=== PATIENT | male | born 1945 | race Caucasian/White ===

== ENCOUNTER → 2016-03-26 | Outpatient (CLI) | payer OTHER, BC ==
[~2016-03-26] MED LIST: ALFU10TA30 PO; ALL300 PO; ASPCH81X PO; ATOR10TA88 PO; BIOFTAB30 PO; CLB/200 PO; CLR10 PO; COEN1CAP46 PO; CZR50 PO; DICL1GEL28 TD; DILT300C PO; DILT360C24 PO; DOCU250C11 PO; DUTA0.5C PO; FRS/40 PO; MULTCHW PO; OLOP0.1S2 OPB; POTA20TA16 PO
[2016-03-26 10:28] LABS: ALT/SGPT 45 U/L (12-78); AST/SGOT 29 U/L (15-37); BLOOD UREA NITROGEN 16 mg/dl (7-18); BUN/CREATININE RATIO 20.6 (10-20); CALCIUM 8.7 mg/dl (8.5-10.1); CARBON DIOXIDE 27 mmol/L (21-32); CHLORIDE 103 mmol/L (98-107); CREATININE 0.76 mg/dl (0.60-1.40); GLUCOSE 99 mg/dl (70-99); POTASSIUM 3.7 mmol/L (3.5-5.1); SODIUM 139 mmol/L (136-145)
[2016-03-26 10:29] LABS: ALKALINE PHOSPHATASE 78 U/L (45-117)
== END | disposition home or self-care (01) ==
LOC: C.LAB1850 08:56
PROVIDERS: ATTEND Family Medicine
DX: I10 Essential (primary) hypertension (principal); Z11.59 Encounter for screening for other viral diseases

== ENCOUNTER → 2016-04-15 | Outpatient (CLI) | payer OTHER, BC ==
--- NOTE | 2016-04-15 11:25 | DIAGNOSTIC IMAGING REPORT ---
RIGHT KNEE 4 VIEWS; LEFT KNEE 4 VIEWS CLINICAL HISTORY: Chronic bilateral knee pain. FINDINGS: An AP standing view of both knees, a tunnel view of both knees, a sunrise view of both knees, as well as crosstable lateral views of the right and left knee are compared to study dated 10/16/2012. The skeletal structures are osteopenic. No fracture is seen. Right knee: There is moderate to advanced tricompartmental degenerative joint space narrowing, greatest in the medial and patellofemoral compartments. There is mild bony sclerosis present in the medial compartment. There are marginal osteophytes and large patellar enthesophytes. There is no evidence of osteochondral defect on the tunnel view. No large joint effusion is identified. Prepatellar soft tissue edema is noted. Left knee: There is moderate to advanced tricompartmental degenerative joint space narrowing, greatest in the medial and patellofemoral compartments. Bony sclerosis is present in the medial compartment. Chondrocalcinosis is noted in the lateral compartment. No osteochondral defect is suggested on the tunnel image. There are large lateral marginal osteophytes, large patellar enthesophytes, as well as mild degenerative beaking of the tibial spine. There is no large joint effusion. Prepatellar soft tissue edema is noted. IMPRESSION: 1. Prepatellar soft tissue swelling is present bilaterally. No acute bony abnormality is seen in either knee. 2. Osteopenia with moderate to advanced arthritic change in both knees as detailed above. This has modestly progressed from the 2013 examination. Electronically signed by: Pravin Shepherd M.D. 04/15/2016 11:24 AM Dictated Date/Time: 04/15/2016 11:20 AM
--- NOTE | 2016-04-15 12:57 | DIAGNOSTIC IMAGING REPORT ---
LEFT LEG LENGTH STUDY (WHOLE LEG) CLINICAL HISTORY: Left knee pain. COMPARISON STUDY: Knee radiographs October 16, 2012 FINDINGS: Evaluation of left femur length is difficult given suboptimal penetration of the left femoral head due to body habitus. The left femur measures approximately 53.5 cm. The left tibia measures approximately 42.9 cm. Moderate medial compartment joint space narrowing within the left knee is noted with mild lateral compartment joint space narrowing. There is chondrocalcinosis with osteophytosis. IMPRESSION: Left femur length difficult to evaluate due to suboptimal penetration. Left femur measures approximately 53.5 cm and left tibia measures approximately 42.9 cm for a left leg length of 96.4 cm. Electronically signed by: Wily Garduno M.D. 04/15/2016 12:56 PM Dictated Date/Time: 04/15/2016 12:51 PM
== END | disposition home or self-care (01) ==
LOC: C.RDSM 15:10
PROVIDERS: ATTEND Physical Medicine & Rehabilitation Sports Medicine
DX: M17.0 Bilateral primary osteoarthritis of knee (principal)

== ENCOUNTER → 2016-05-31 | Outpatient (CLI) | payer OTHER, BC ==
[~2016-05-31] MED LIST changes: +ALFU10TA2 PO; -ALFU10TA30 PO; +ATOR10TA82 PO; -ATOR10TA88 PO; -OLOP0.1S2 OPB; +OLOP0.1S3 OPB
== END | disposition home or self-care (01) ==
LOC: C.RDSM 11:45
PROVIDERS: ATTEND Physical Medicine & Rehabilitation Sports Medicine
DX: M25.512 Pain in left shoulder (principal)

== ENCOUNTER → 2016-06-02 | Outpatient (CLI) | payer OTHER, BC ==
[2016-06-02 12:45] LABS: BLOOD UREA NITROGEN 13 mg/dl (7-18); CREATININE 0.77 mg/dl (0.60-1.40)
== END | disposition home or self-care (01) ==
LOC: C.LAB1850 10:00
PROVIDERS: ATTEND Physician Assistant
DX: R22.32 Localized swelling, mass and lump, left upper limb (principal)

== ENCOUNTER → 2016-06-04 | Outpatient (CLI) | payer OTHER, BC ==
[~2016-06-04] MED LIST changes: +GADAVIST IV PRN
--- NOTE | 2016-06-04 11:28 | DIAGNOSTIC IMAGING REPORT ---
MRI OF THE LEFT SHOULDER WITH AND WITHOUT CONTRAST CLINICAL HISTORY: Left shoulder pain and lump status post fall 4 weeks ago. COMPARISON STUDY: Left shoulder radiographs May 31, 2016. TECHNIQUE: Utilizing a 1.5 Laura magnet and dedicated coil, multiplanar, multi echo imaging of the left shoulder was performed pre and postcontrast ministration. Injection of 13 cc of Gadavist IV was uneventful. FINDINGS: Alignment of the left shoulder is anatomic. There is no evidence for fracture. There is elevation of the left humeral head due to extensive full-thickness rotator cuff tear. There are full-thickness tears with tendon retraction and muscular atrophy of supraspinatus, infraspinatus and subscapularis. Teres minor is intact. There is moderate glenohumeral joint arthrosis and severe arthrosis of the acromioclavicular joint. There is fluid within the acromioclavicular joint with subchondral cystic change/geodes within the distal left clavicle. Note is made of a 3.2 x 2.3 cm T2 hyperintense abnormality along the superior aspect of the acromioclavicular joint within the subcutaneous tissues which represents the palpable abnormality. This demonstrates thin peripheral enhancement with minimal internal complexity. This suggests a ganglion cyst. No additional mass or fluid collection is identified. There is a complex tear of the glenoid labrum which is likely chronic. There is a suspected tear of the proximal long head of the biceps tendon. IMPRESSION: 1. 3.2 x 2.3 cm subcutaneous fluid collection of the left shoulder adjacent to the acromioclavicular joint which accounts for the palpable abnormality. The findings favor a ganglion cyst. 2. 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 3. Extensive rotator cuff tear with full-thickness tears with tendon retraction and muscular atrophy of supraspinatus, infraspinatus and subscapularis. 4. Complex labral tear. 5. Tear of the proximal long head of biceps tendon. Electronically signed by: Wily Garduno M.D. 06/04/2016 11:26 AM Dictated Date/Time: 06/04/2016 10:52 AM
== END | disposition home or self-care (01) ==
LOC: C.MRIBC 09:21
PROVIDERS: ATTEND Physical Medicine & Rehabilitation Sports Medicine
DX: R22.32 Localized swelling, mass and lump, left upper limb (principal); M19.012 Primary osteoarthritis, left shoulder; M75.102 Unspecified rotator cuff tear or rupture of left shoulder, not specified as traumatic; S49.82XA Other specified injuries of left shoulder and upper arm, initial encounter; X58.XXXA Exposure to other specified factors, initial encounter

== ENCOUNTER 2016-08-03 18:21 | Emergency (ER) | payer OTHER, BC ==
[~2016-08-03] VITALS: Ht 193 cm; Wt 137.7 kg
[~2016-08-03 18:21] MED LIST changes: -ATOR10TA82 PO; -DILT360C24 PO; -DUTA0.5C PO; -GADAVIST IV PRN; -OLOP0.1S3 OPB
[2016-08-03 18:29] VITALS: TEMP 36.6; Ht 193 cm; Wt 137.7 kg
--- NOTE | 2016-08-03 19:05 | EMERGENCY ROOM VISIT NOTE ---
History Report prepared by Allison: Gatito Petit Under the Supervision of: Eva RoweO. First contact with patient: 18:41 Chief Complaint: KIDNEY STONE Stated Complaint: KIDNEY STONES History of Present Illness The patient is a 70 year old male who presents to the Emergency Room with complaints of persistent urinary retention starting about 4 hours ago. He last urinated about 3 and a half hours ago which came out in dribbles. He denies any pain or burning with urination. He reports fullness in the lower abdomen. He denies any history of similar symptoms. He has prostate issues. The patient has a history of kidney stones and denies any similar symptoms. Pt denies headache, change in vision, fevers, chest pain, shortness of breath, nausea, vomiting, abdominal pain, back pain, diarrhea, melena, and testicular pain. Source of History: patient Onset: about 4 hours ago Position: other (global) Quality: other (urinary retention) Timing: other (persistent) Associated Symptoms: No fevers, No headache, No chest pain, No SOB, No nausea, No vomiting, No abdominal pain, No back pain, No diarrhea Review of Systems See HPI for pertinent positives & negatives. A total of 10 systems reviewed and were otherwise negative. Past Medical & Surgical Medical Problems: (1) Hypertension (2) Prostate troubles (3) Prostate troubles Family History FH: colon polyps Social History Smoking Status: Former Smoker Marital Status: Occupation Status: retired Current/Historical Medications Scheduled Alfuzosin Hcl (Uroxatral), 10 MG PO QPM Allopurinol (Zyloprim *), 300 MG PO QAM Aspirin (Aspirin Chewable), 81 MG PO QPM Bioflavonoid Products (Bioflex), 1 TAB PO BID Coenzyme Q10 (Ubidecarenone) (Coq-10 100 mg), 1 CAP PO QAM Diltiazem Hcl Coated Beads (Diltiazem Hcl Er), 1 TAB PO QAM Docusate Sodium (Docusate Sodium), 1 CAP PO QAM Furosemide (Lasix), 40 MG PO BID Loratadine (Claritin), 10 MG PO QAM Losartan Potassium (Cozaar *), 100 MG PO QAM Multiple Vitamins W/ Minerals (Centrum Silver), 1 TAB PO QAM Potassium Ext Rel (Klor-Con), 20 MEQ PO QAM Scheduled PRN Diclofenac Sod (Voltaren 1% Top Gel), 1 APPLN TD QID PRN for prn Allergies Coded Allergies: Ibuprofen (Verified Allergy, Severe, THROAT SWELLING, 08/03/16) Physical Exam Vital Signs Date Time Temp Pulse Resp B/P (MAP) Pulse Ox O2 Delivery O2 Flow Rate FiO2 08/03/16 20:30 75 20 132/78 92 08/03/16 18:29 36.6 105 18 153/92 92 Room Air Physical Exam GENERAL: Sitting up in bed, uncomfortable, holding lower groin. EYE EXAM: normal conjunctiva OROPHARYNX: no exudate, no erythema, lips, buccal mucosa, and tongue normal and mucous membranes are moist NECK: supple, no nuchal rigidity, no adenopathy, non-tender LUNGS: Clear to auscultation. Normal chest wall mechanics HEART: no murmurs, S1 normal and S2 normal ABDOMEN: abdomen soft, mild tenderness to the suprapubic region, normo-active bowel sounds, no masses, no rebound or guarding. BEDSIDE ultrasound: Shows a large distended bladder. : Normal external genitalia, testicles are nontender, no penile discharge. BACK: Back is symmetrical on inspection and there is no deformity, no midline tenderness, no CVA tenderness. SKIN: no rashes and no bruising UPPER EXTREMITIES: upper extremities are grossly normal. LOWER EXTREMITIES: No pitting edema. NEURO EXAM: Normal sensorium, cranial nerves II-XII grossly intact, normal speech, no gross weakness of arms, no gross weakness of legs. Medical Decision & Procedures Laboratory Results Test 08/03/16 19:02 Urine Color YELLOW Urine Appearance CLEAR (CLEAR) Urine pH 6.5 (4.5-7.5) Urine Specific [place] 1.010 (1.000-1.030) Urine Protein NEG (NEG) Urine Glucose (UA) NEG (NEG) Urine Ketones NEG (NEG) Urine Occult Blood 2+ (NEG) Urine Nitrite NEG (NEG) Urine Bilirubin NEG (NEG) Urine Urobilinogen NEG (NEG) Urine Leukocyte Esterase NEG (NEG) Urine RBC >30 /hpf (0-4) Urine WBC 0 /hpf (0-5) Urine Epithelial Cells 0-5 /lpf (0-5) Urine Bacteria NEG (NEG) Laboratory results per my review. ED Course ED COURSE: Vital signs were reviewed and showed tachycardic and hypertensive. The patients medical record was reviewed The above diagnostic studies were performed and reviewed. ED treatments and interventions as stated above. 1841: The patient was evaluated in room B04B. A complete history and physical examination was performed. Medication Reconciliation: I attest that I have personally reviewed the patient' s current medication list. Blood pressure screening: Patient was found to have an elevated blood pressure and was referred to their primary doctor for recheck and further treatment. 190: 1200 mls of urine were removed through the catheter. 1921: I discussed the patient's case with Dr. Walters, urologist with [facility]. He recommended having the patient follow up as an outpatient. 2009: Upon reevaluation, the patient is resting comfortably.I discussed my findings with the patient and he understands and agrees with the treatment plan. Based on the patients age, coexisting illnesses, exam and lab findings the decision to treat as an outpatient was made. The patient remained stable while under my care. The patient appeared well at the time of discharge. Medical Decision Differential diagnoses includes but is not limited to gastritis, peptic ulcer disease, GERD, gallbladder disease, pancreatitis, small bowel obstruction, acute coronary syndrome, pericarditis, ischemic bowel, irritable bowel disease, irritable bowel syndrome, appendicitis, diverticulitis, malignancy, hernia, urinary tract infection, torsion, perforation, trauma, infectious. Patient is a 70-year-old male that complains of bilateral lower/groin pain. Pt notes that he has been having difficulty urinating since 2 PM. Bedside ultrasound shows a large distended bladder. Cueva was placed and symptoms completely resolved. 1300 MLS was removed from his bladder. UA was negative. Patient is currently taking medication for his BPH. Discussed with Dr. Walters in order to have follow-up. Patient will call the office tomorrow morning to set up an appointment. He was discharged with Cueva in place. He was given strict instructions to return with any fevers greater than 100.4 or any other complications. Discussed with Pt concerning signs and symptoms to watch out for. Pt was instructed to follow up with their PCP and discussed with the patient their option to return to the ED at anytime for persistent or worsening symptoms. The appropriate anticipatory guidance and out-patient management, including indications for return to the emergency department, were explained at length to the patient and understood. Consults Time Called: 1909 Consulting Physician: Dr. Walters, urologist with [facility] Returned Call: 1921 I discussed the patient's case with Dr. Walters, urologist with [facility]. He recommended having the patient follow up as an outpatient. Impression Primary Impression: Urinary retention Scribe Attestation The scribe's documentation has been prepared under my direction and personally reviewed by me in its entirety. I confirm that the note above accurately reflects all work, treatment, procedures, and medical decision making performed by me. Departure Information Dispostion Home / Self-Care Referrals Bienvenido Mcclain D.O.Int.Med. (PCP) Davian Walters M.D. Forms HOME CARE DOCUMENTATION FORM, IMPORTANT VISIT INFORMATION Patient Instructions ED Catheter Care Cueva, ED Retention Urinary Male, Leg Bag Care Dc, My [facility] Additional Instructions Please follow up with your primary care doctor or urologist with in the next 3 days. Any worsening of your symptoms, please return to the ED immediately. This includes no urine within the Cueva bag, recurrence of pain, fevers grade and 100.4, or any other concerning signs or symptoms from your standpoint. Please call urology first thing tomorrow morning.
[2016-08-03 19:46] LABS: MANUAL MICROSCOPIC REQUIRED? YES; URINE APPEARANCE CLEAR (CLEAR); URINE BILIRUBIN NEG (NEG); URINE COLOR YELLOW; URINE NITRITE NEG (NEG); URINE PH 6.5 (4.5-7.5); UROBILINOGEN NEG (NEG)
[2016-08-03 19:47] LABS: REVIEW REQ? NO
[2016-08-03 20:00] LABS: URINE BACTERIA NEG (NEG); URINE RBC >30 /hpf (0-4); URINE WBC 0 /hpf (0-5)
[2016-08-03 20:01] LABS: ZZURINE CULT IF INDIC CATH NO
[2016-08-03 20:30] VITALS: BP 132/78; PULSE 75; O2SAT 92
[2016-09-23] MEDS ORDERED: OLOP0.1S3 OPB (09:01)
[2016-09-23] MEDS ORDERED: DILT360C24 PO (09:01)
[2016-09-23] MEDS ORDERED: DUTA0.5C PO (09:01)
[2016-09-23] MEDS ORDERED: ATOR10TA82 PO (09:02)
== END 2016-08-03 20:35 | disposition home or self-care (01) ==
LOC: C.EDB 18:22
DX: R33.9 Retention of urine, unspecified (principal); I10 Essential (primary) hypertension; Z87.891 Personal history of nicotine dependence; Z79.82 Long term (current) use of aspirin; Z79.899 Other long term (current) drug therapy; Z88.6 Allergy status to analgesic agent; Z83.71 Family history of colonic polyps

== ENCOUNTER → 2016-08-16 | Outpatient (CLI) | payer OTHER, BC ==
[~2016-08-16] MED LIST changes: +ATOR10TA82 PO; -CLB/200 PO; +DILT360C24 PO; +DUTA0.5C PO; +OLOP0.1S3 OPB
[2016-08-16 18:08] LABS: % FREE PSA 17.2 %; FREE PSA 1.86 ng/ml; PROSTATE SPECIFIC ANTIGEN 10.8 ng/ml (0.000-4.000)
== END | disposition home or self-care (01) ==
LOC: C.LAB1850 16:20
PROVIDERS: ATTEND Nurse Practitioner Adult Health
DX: N40.1 Benign prostatic hyperplasia with lower urinary tract symptoms (principal); R97.20 Elevated prostate specific antigen [PSA]

== ENCOUNTER → 2016-09-01 | Outpatient (CLI) | payer OTHER, BC ==
[~2016-09-01] MED LIST changes: -ALFU10TA2 PO; +ALFU10TA30 PO; -ATOR10TA82 PO; +ATOR10TA88 PO; +OLOP0.1S2 OPB; -OLOP0.1S3 OPB
== END | disposition home or self-care (01) ==
LOC: C.LAB1850 12:09
PROVIDERS: ATTEND Urology
DX: R97.20 Elevated prostate specific antigen [PSA] (principal)

== ENCOUNTER → 2016-10-06 | Day surgery (SDC) | payer OTHER, BC ==
[2016-09-23 09:02] VITALS: Ht 185.4 cm; Wt 134.1 kg
[~2016-10-06] VITALS: Ht 185.4 cm; Wt 134.1 kg
[~2016-10-06] MED LIST changes: -DILT300C PO; -DOCU250C11 PO; +LIDOCAINE HCL 2% 2 ML VIAL (20MG/ML) ONE; +PROPOFOL IV EMULSION 10 MG/ML 20 ML VIAL IV ONE; +SODIUM CHLORIDE 0.9% 500ML 500 ML IV ONE
[2016-10-06 13:00] VITALS: TEMP 37
--- NOTE | 2016-10-06 13:43 | Endo History and Physical ---
History & Physical Date of Service: Oct 06, 2016. Chief Complaint: screening Referring Physician: Clarisse Eubanks History of Present Illness 70 yo CM who presents for screening colonoscopy. Past Medical History Reflux, Sleep Apnea, Hypertension, Other Past Surgical History Hx Cardiac Surgery: No Hx Internal Defibrillator: No Hx Pacemaker: No Hx Abdominal Surgery: No Hx Post-Op Nausea and Vomiting: No Hx Cancer Surgery: No Hx Thoracic Surgery: No Hx Orthopedic: Yes (R ELBOW RELOCATION OF NERVE, L FOOT HAMMER TOE REPAIR/ BUNIONECTOMY) Hx Urinary Tract Surgery: No Family History Polyp Social History Smoking Status: Former Smoker Hx Substance Use: No Hx Alcohol Use: No Allergies Coded Allergies: Ibuprofen (Verified Allergy, Severe, THROAT SWELLING, 09/23/16) Current Medications Reported Home Medications Medications Dose Route/Sig Max Daily Dose Days Date Category Lipitor (Atorvastatin Calcium) 10 Mg Tab 10 Mg PO QAM 09/23/16 Reported Patanol 0.1% Oph (Olopatadine Hcl) 0.1 % Linda 1 Drop OPB BID 09/23/16 Reported Diltiazem Hcl (Diltiazem Hcl Extended Release) 360 Mg Cap 1 Cap PO QAM 09/23/16 Reported Avodart (Dutasteride) 0.5 Mg Cap 0.5 Mg PO QPM 09/23/16 Reported Centrum Silver (Multiple Vitamins W/ Minerals) 1 Chw Chw 1 Tab PO QAM 03/27/15 Reported Bioflex (Bioflavonoid Products) 1 Tab Tab 1 Tab PO BID 03/27/15 Reported Coq-10 100 mg (Coenzyme Q10 (Ubidecarenone)) 1 Cap Cap 1 Cap PO QAM 03/27/15 Reported Voltaren 1% Top Gel (Diclofenac Sodium) Gel 1 Appln TD QID PRN 10/11/14 Reported Klor-Con (Potassium Chloride) 20 Meq Tabcr 20 Meq PO QAM 10/11/14 Reported Claritin (Loratadine) 10 Mg Tab 10 Mg PO QAM 07/09/14 Reported Aspirin Chewable (Aspirin) 81 Mg Chew 81 Mg PO QPM 07/09/14 Reported Lasix (Furosemide) 40 Mg Tab 40 Mg PO BID 01/20/07 Reported Uroxatral (Alfuzosin HCl) 10 Mg Tab 10 Mg PO QPM 01/20/07 Reported Zyloprim * (Allopurinol) 300 Mg Tab 300 Mg PO QAM 01/20/07 Reported Cozaar * (Losartan Potassium) 100 Mg Tab 100 Mg PO QAM 01/20/07 Reported Vital Signs Weight (Kilograms): 134.09 Height (Feet): 6 Height (Inches): 1 Date Time Temp Pulse Resp B/P (MAP) Pulse Ox O2 Delivery O2 Flow Rate FiO2 10/06/16 13:00 37 64 20 151/84 (106) 95 Room Air Physical Exam General Appearance: WD/WN, no apparent distress Respiratory/Chest: Auscultation: breath sounds normal Cardiovascular: Heart Auscultation: RRR Abdomen: Bowel Sounds: normal Inspection & Palpation: soft, non-distended, no tenderness, guarding & rebound Assessment and Plan Assessment: 70 yo CM who presents for screening colonoscopy. Plan: Proceed with colonoscopy.
--- NOTE | 2016-10-06 14:20 | Discharge Instructions ---
Endoscopy Patient Instructions Date / Procedure(s) Performed Oct 06, 2016. Colonoscopy Allergy Information Coded Allergies: Ibuprofen (Verified Allergy, Severe, THROAT SWELLING, 09/23/16) Discharge Date / Findings Oct 06, 2016. Colon polyps Rectal polyp Internal hemorrhoids Medication Instructions Stopped Medication(s): last dose ASA 10/05 2300 OK to resume all medications today as prescribed Reported Home Medications Medications Dose Route/Sig Max Daily Dose Days Date Category Lipitor (Atorvastatin Calcium) 10 Mg Tab 10 Mg PO QAM 09/23/16 Reported Patanol 0.1% Oph (Olopatadine Hcl) 0.1 % Linda 1 Drop OPB BID 09/23/16 Reported Diltiazem Hcl (Diltiazem Hcl Extended Release) 360 Mg Cap 1 Cap PO QAM 09/23/16 Reported Avodart (Dutasteride) 0.5 Mg Cap 0.5 Mg PO QPM 09/23/16 Reported Centrum Silver (Multiple Vitamins W/ Minerals) 1 Chw Chw 1 Tab PO QAM 03/27/15 Reported Bioflex (Bioflavonoid Products) 1 Tab Tab 1 Tab PO BID 03/27/15 Reported Coq-10 100 mg (Coenzyme Q10 (Ubidecarenone)) 1 Cap Cap 1 Cap PO QAM 03/27/15 Reported Voltaren 1% Top Gel (Diclofenac Sodium) Gel 1 Appln TD QID PRN 10/11/14 Reported Klor-Con (Potassium Chloride) 20 Meq Tabcr 20 Meq PO QAM 10/11/14 Reported Claritin (Loratadine) 10 Mg Tab 10 Mg PO QAM 07/09/14 Reported Aspirin Chewable (Aspirin) 81 Mg Chew 81 Mg PO QPM 07/09/14 Reported Lasix (Furosemide) 40 Mg Tab 40 Mg PO BID 01/20/07 Reported Uroxatral (Alfuzosin HCl) 10 Mg Tab 10 Mg PO QPM 01/20/07 Reported Zyloprim * (Allopurinol) 300 Mg Tab 300 Mg PO QAM 01/20/07 Reported Cozaar * (Losartan Potassium) 100 Mg Tab 100 Mg PO QAM 01/20/07 Reported Provider Instructions Activity Restrictions - No exercising or heavy lifting for 24 hours. - Do not drink alcohol the day of the procedure. - Do not drive a car or operate machinery until the day after the procedure. - Do not make any important decisions or sign important papers in 24 hours after the procedure. Following Day: - Return to full activity which may include returning to work/school. Diet Start your diet with liquids and light foods (jello, soup, juice, toast). Then eat your usual diet if not nauseated. Treatment For Common After Affects For mild abdominal pain, bloating, or excessive gas: - Rest - Eat lightly - Lie on right side Follow-Up Information Follow-up with Clarisse Eubanks as scheduled Anesthesia Information What You Should Know You have had a procedure that required some medicine to reduce anxiety and discomfort. This treatment is called moderate sedation. After receiving the treatment, you may be sleepy, but you will be able to breathe on your own. The effects of the treatment may last for several hours. Follow these instructions along with Activity/Diet recommendations noted above: * Do NOT do anything where dizziness or clumsiness would be dangerous. * Rest quietly at home today, then you can be up and about tomorrow. * Have a responsible person stay with you the rest of today. * You may have had an I.V. today. If so, you may take the dressing off later today. Recommendations Call your doctor if: * Trouble breathing * Continuous vomiting for more than 24 hours * Temperature above 101 degrees * Severe abdominal pain or bloating * Pain not relieved by pain medicine ordered * There is increased drainage or redness from any incision * A large amount of rectal bleeding greater than 2-3 tablespoons. (If you had a polyp/s removed or have hemorrhoids, a small amount of blood - from the rectum is to be expected.) * You have any unanswered questions or concerns. IN THE EVENT OF A SERIOUS EMERGENCY, GO TO THE NEAREST EMERGENCY ROOM Your discharge instructions were prepared by provider Zelalem Putnam. Patient Instructions Signature Page Aiden Sawyer Patient (or Guardian) Signature/Date: I have read and understand the instructions given to me by my caregivers. Caregiver/RN/Doctor Signature/Date: The above-named patient and/or guardian has received patient instructions on this date. + Original Patient Signature Page (only) stays with chart. Please make copy for patient.
--- NOTE | 2016-10-06 14:24 | GI REPORT ---
Procedure Date: 10/06/2016 1:19 PM Procedure: Colonoscopy Indications: Screening for colorectal malignant neoplasm Medicines: Monitored Anesthesia Care Complications: No immediate complications. Estimated Blood Loss: Estimated blood loss: none. Procedure: Pre-Anesthesia Assessment: - Prior to the procedure, a History and Physical was performed, and patient medications and allergies were reviewed. The patient's tolerance of previous anesthesia was also reviewed. The risks and benefits of the procedure and the sedation options and risks were discussed with the patient. All questions were answered, and informed consent was obtained. Prior Anticoagulants: The patient has taken aspirin, last dose was 2 days prior to procedure. ASA Grade Assessment: II - A patient with mild systemic disease. After reviewing the risks and benefits, the patient was deemed in satisfactory condition to undergo the procedure. After I obtained informed consent, the scope was passed under direct vision. Throughout the procedure, the patient's blood pressure, pulse, and oxygen saturations were monitored continuously. The Scope was introduced through the anus with the intention of advancing to the ileum. The scope was advanced to the ascending colon before the procedure was aborted. Medications were given. The colonoscopy was performed with difficulty due to a tortuous colon and the patient's body habitus. Successful completion of the procedure was aided by changing the patient to a supine position and applying abdominal pressure. The patient tolerated the procedure fairly well. The quality of the bowel preparation was good. The ileocecal valve and the rectum were photographed. Findings: Three sessile polyps were found in the rectum and in the ascending colon. The polyps were 4 to 6 mm in size. These polyps were removed with a hot snare. Resection and retrieval were complete. Non-bleeding internal hemorrhoids were found during retroflexion. The hemorrhoids were small. Impression: - Three 4 to 6 mm polyps in the rectum and in the ascending colon, removed with a hot snare. Resected and retrieved. - Non-bleeding internal hemorrhoids. Recommendation: - Resume previous diet. - Continue present medications. - Repeat colonoscopy for surveillance based on pathology results. - Return to primary care physician as previously scheduled. Zelalem Putnam DO 10/06/2016 2:24:10 PM This report has been signed electronically. Note Initiated On: 10/06/2016 1:19 PM I attest to the content of the Intraoperative Record and orders documented therein, exceptions below
--- NOTE | 2016-10-06 14:37 | Anesthesiology Progress Note ---
Anesthesia Post Op Note Date & Time Oct 06, 2016 at 14:37 Vital Signs Pain Intensity: 0 Vital Signs Past 12 Hours Date Time Temp Pulse Resp B/P (MAP) Pulse Ox O2 Delivery O2 Flow Rate FiO2 10/06/16 13:00 37 64 20 151/84 (106) 95 Room Air Notes Mental Status: alert / awake / arousable, participated in evaluation Pt Amnestic to Procedure: Yes Nausea / Vomiting: adequately controlled Pain: adequately controlled Airway Patency, RR, SpO2: stable & adequate BP & HR: stable & adequate Hydration State: stable & adequate Anesthetic Complications: no major complications apparent
[2016-10-06 14:51] VITALS: BP 148/84; PULSE 64; O2SAT 93
== END | disposition home or self-care (01) ==
LOC: C.GI 12:18
PROVIDERS: ATTEND Internal Medicine
DX: Z12.11 Encounter for screening for malignant neoplasm of colon (principal); K62.1 Rectal polyp; D12.2 Benign neoplasm of ascending colon; K64.8 Other hemorrhoids; I10 Essential (primary) hypertension; G47.30 Sleep apnea, unspecified; K21.9 Gastro-esophageal reflux disease without esophagitis; Z83.71 Family history of colonic polyps; Z87.891 Personal history of nicotine dependence; Z79.82 Long term (current) use of aspirin; Z79.899 Other long term (current) drug therapy

== ENCOUNTER → 2016-12-01 | Outpatient (CLI) | payer OTHER, BC ==
[~2016-12-01] MED LIST changes: -LIDOCAINE HCL 2% 2 ML VIAL (20MG/ML) ONE; -PROPOFOL IV EMULSION 10 MG/ML 20 ML VIAL IV ONE; -SODIUM CHLORIDE 0.9% 500ML 500 ML IV ONE
[2016-12-01 13:15] LABS: FREE PSA 0.68 ng/ml; PROSTATE SPECIFIC ANTIGEN 3.45 ng/ml (0.000-4.000)
== END | disposition home or self-care (01) ==
LOC: C.LAB1850 11:03
PROVIDERS: ATTEND Urology
DX: R97.20 Elevated prostate specific antigen [PSA] (principal)

== ENCOUNTER → 2017-01-28 | Outpatient (CLI) | payer OTHER, BC ==
[~2017-01-28] MED LIST changes: +ALFU10TA2 PO; -ALFU10TA30 PO; +ATOR10TA82 PO; -ATOR10TA88 PO; -OLOP0.1S2 OPB; +OLOP0.1S3 OPB
[2017-01-28 12:43] LABS: BASO % 0.6 %; BASO ABS # 0.05 K/uL (0-0.2); COMPLETE YES; EOS % 2.2 %; HEMATOCRIT 43.6 % (42-52); IG% 0.4 %; LYMPH % 14.4 %; LYMPH ABS # 1.18 K/uL (1.2-3.4); MEAN CELL VOLUME 88.1 fL (80-100); MEAN CORPUSCULAR HEMOGLOBIN 29.5 pg (25-34); MEAN CORPUSCULAR HGB CONC 33.5 g/dl (32-36); MEAN PLATELET VOLUME 10.6 fL (7.4-10.4); MONO % 6.5 %; NEUT % 75.9 %; PLATELET COUNT 221 K/uL (130-400); RED BLOOD COUNT 4.95 M/uL (4.7-6.1); WHITE BLOOD COUNT 8.19 K/uL (4.8-10.8)
[2017-01-28 12:58] LABS: ALT/SGPT 41 U/L (12-78); AST/SGOT 22 U/L (15-37); BLOOD UREA NITROGEN 17 mg/dl (7-18); BUN/CREATININE RATIO 22.5 (10-20); CALCIUM 8.7 mg/dl (8.5-10.1); CARBON DIOXIDE 25 mmol/L (21-32); CHLORIDE 105 mmol/L (98-107); CHOLESTEROL 105 mg/dl (0-200); CREATININE 0.75 mg/dl (0.60-1.40); GLUCOSE 95 mg/dl (70-99); SODIUM 138 mmol/L (136-145)
[2017-01-28 13:09] LABS: ALKALINE PHOSPHATASE 94 U/L (45-117); CHOLESTEROL/HDL RATIO 3.9; HDL CHOLESTEROL 27 mg/dl; LDL CHOLESTEROL CALCULATED 46 mg/dl; TRIGLYCERIDES 159 mg/dl (0-150); VERY LOW DENSITY LIPOPROT CALC 32 mg/dl
== END | disposition home or self-care (01) ==
LOC: C.LAB1850 10:59
PROVIDERS: ATTEND Internal Medicine
DX: M10.9 Gout, unspecified (principal); I10 Essential (primary) hypertension; I67.9 Cerebrovascular disease, unspecified; M54.16 Radiculopathy, lumbar region; G47.33 Obstructive sleep apnea (adult) (pediatric); E78.5 Hyperlipidemia, unspecified; N40.1 Benign prostatic hyperplasia with lower urinary tract symptoms

== ENCOUNTER → 2017-02-24 | Outpatient (CLI) | payer OTHER, BC | END | disposition home or self-care (01) | LOC: C.RDSM 11:45 | PROVIDERS: ATTEND Physical Medicine & Rehabilitation Sports Medicine | DX: M25.551 Pain in right hip (principal) ==

== ENCOUNTER → 2017-05-24 | Outpatient (CLI) | payer OTHER, BC ==
[~2017-05-24] MED LIST changes: -ALL300 PO; +ALLO300T2 PO; +COEN100C11 PO; -COEN1CAP46 PO; -CZR50 PO; +DICL1GEL12 TOP; -DICL1GEL28 TD; +DOCU100C31 PO; +LOSA1TAB38 PO; +MULT-839 PO; +OMEG10007 PO; +TRAM-10 PO
[2017-05-24 12:53] LABS: HEMOGLOBIN A1C 5.6 % (4.5-5.6)
== END | disposition home or self-care (01) ==
LOC: C.LAB1850 10:02
PROVIDERS: ATTEND Urology
DX: R73.9 Hyperglycemia, unspecified (principal); R97.20 Elevated prostate specific antigen [PSA]

== ENCOUNTER 2017-06-08 06:11 | Inpatient (IN) | payer OTHER, BC ==
[2017-05-13 10:04] VITALS: Ht 182.9 cm; Wt 139.9 kg
[2017-05-13 10:07] LABS: BASO % 0.6 %; BASO ABS # 0.05 K/uL (0-0.2); EOS % 2.9 %; EOS ABS # 0.24 K/uL (0-0.5); HEMATOCRIT 45.7 % (42-52); IG# 0.04 K/uL (0.00-0.02); LYMPH % 12.3 %; LYMPH ABS # 1.01 K/uL (1.2-3.4); MEAN CELL VOLUME 88.2 fL (80-100); MEAN CORPUSCULAR HGB CONC 32.8 g/dl (32-36); MEAN PLATELET VOLUME 10.4 fL (7.4-10.4); MONO % 7.6 %; MONO ABS # 0.63 K/uL (0.11-0.59); NEUT % 76.1 %; NEUT ABS # 6.27 K/uL (1.4-6.5); PLATELET COUNT 201 K/uL (130-400); RED CELL DISTRIBUTION WIDTH CV 13.8 % (11.5-14.5); RED CELL DISTRIBUTION WIDTH SD 44.6 fL (36.4-46.3); WHITE BLOOD COUNT 8.24 K/uL (4.8-10.8)
[2017-05-13 10:15] LABS: PTT PATIENT 29.1 SECONDS (21.0-31.0)
[2017-05-13 10:19] LABS: CREATININE 0.79 mg/dl (0.60-1.40)
[2017-05-13 10:20] LABS: POTASSIUM 3.9 mmol/L (3.5-5.1)
--- NOTE | 2017-05-13 10:40 | PAT Medication Instructions ---
Service Date May 13, 2017. Current Home Medication List Alfuzosin Hcl (Uroxatral), 10 MG PO QPM Allopurinol (Zyloprim), 300 MG PO QAM Aspirin (Aspirin Chewable), 81 MG PO QPM Atorvastatin (Lipitor), 10 MG PO QAM Bioflavonoid Products (Bioflex), 1 TAB PO BID Coenzyme Q10 (Ubidecarenone) (Coq-10), 1 CAP PO QAM Diclofenac Sodium (Topical) (Voltaren 1% Top Gel), 1 DOSE TOP UD PRN for RN Diltiazem Hcl Extended Release (Diltiazem Hcl), 1 CAP PO QAM Docusate Sodium (Docusate Sodium), 1 CAP PO UD PRN for PRN Dutasteride (Avodart), 0.5 MG PO QPM Fish Oil (Providence-3), Unknown Dose PO QAM Furosemide (Lasix), 40 MG PO BID Loratadine (Claritin), 10 MG PO QAM PRN for ALLERGY SYMPTOMS Losartan Potassium (Cozaar), 100 MG PO QAM Multiple Vitamins W/ Minerals (Centrum Silver), 1 TAB PO QAM Multiple Vitamins W/ Minerals (Vision Formula/Lutein), Unknown Dose PO QAM Olopatadine Hcl (Patanol 0.1% Oph), 1 DROP OPB BID Potassium Ext Rel (Klor-Con), 20 MEQ PO QAM Tramadol (Ultram), 50 MG PO UD PRN for Pain Medication Instructions For Your Scheduled Surgery - Hold the following medications 2 weeks prior to surgery: Bioflavonoid Products (Bioflex), 1 TAB PO BID Coenzyme Q10 (Ubidecarenone) (Coq-10), 1 CAP PO QAM Fish Oil (Providence-3), Unknown Dose PO QAM - Hold the following medications 24 hours prior to surgery: Diclofenac Sodium (Topical) (Voltaren 1% Top Gel), 1 DOSE TOP UD PRN for RN Furosemide (Lasix), 40 MG PO BID - Hold the following medications the morning of surgery: Docusate Sodium (Docusate Sodium), 1 CAP PO UD PRN for PRN Loratadine (Claritin), 10 MG PO QAM PRN for ALLERGY SYMPTOMS Losartan Potassium (Cozaar), 100 MG PO QAM Multiple Vitamins W/ Minerals (Centrum Silver), 1 TAB PO QAM Multiple Vitamins W/ Minerals (Vision Formula/Lutein), Unknown Dose PO QAM Potassium Ext Rel (Klor-Con), 20 MEQ PO QAM - Take the following medications the morning of surgery with a sip of water: Allopurinol (Zyloprim), 300 MG PO QAM Atorvastatin (Lipitor), 10 MG PO QAM Diltiazem Hcl Extended Release (Diltiazem Hcl), 1 CAP PO QAM Olopatadine Hcl (Patanol 0.1% Oph), 1 DROP OPB BID (and bring it with you to the hospital) Tramadol (Ultram), 50 MG PO UD PRN for Pain (if needed) - Take the following medications as scheduled the night before surgery: Alfuzosin Hcl (Uroxatral), 10 MG PO QPM Aspirin (Aspirin Chewable), 81 MG PO QPM Docusate Sodium (Docusate Sodium), 1 CAP PO UD PRN for PRN (if needed) Dutasteride (Avodart), 0.5 MG PO QPM Olopatadine Hcl (Patanol 0.1% Oph), 1 DROP OPB BID Tramadol (Ultram), 50 MG PO UD PRN for Pain (if needed) If you have any questions please call us at [phone] or [phone] or [phone]
--- NOTE | 2017-05-13 11:00 | DIAGNOSTIC IMAGING REPORT ---
CHEST 2 VIEWS ROUTINE CLINICAL HISTORY: Preoperative evaluation. COMPARISON STUDY: Chest radiograph March 17, 2011. FINDINGS: Elevation/eventration of the right hemidiaphragm has slightly increased. There is no pneumothorax or pleural effusion. There is no consolidation to suggest pneumonia and there is no evidence for pulmonary edema. There is mild cardiomegaly. IMPRESSION: 1. No acute cardiopulmonary findings. 2. Mild cardiomegaly. 3. Slight interval increase in elevation/eventration of the right hemidiaphragm. Electronically signed by: Wily Garduno M.D. 05/13/2017 10:58 AM Dictated Date/Time: 05/13/2017 10:57 AM
--- NOTE | 2017-05-27 14:22 | HISTORY & PHYSICAL EXAMINATION ---
DATE OF ADMISSION: 06/08/2017 CHIEF COMPLAINT: Right hip pain. HISTORY OF PRESENT ILLNESS: This 71-year-old white male presents to the office with complaints of right hip pain that has been ongoing for a longstanding amount of time. Symptoms have been present for approximately 6-7 months. No prior history of injury. He does have a known history of spinal stenosis and get spinal injections with Dr. Yeager. His pain seems to be more focused in the hip. He points to the groin as his area of discomfort. Occasional radiation into the back of the thigh. Pain is worse with ambulation or weightbearing. It is affecting his ADLs. No numbness or tingling. He elects to proceed with right total hip arthroplasty in hopes of alleviating his pain. Preoperative x-rays have been obtained. PAST MEDICAL HISTORY: Significant for a history of heart murmur, hypertension, sleep apnea, use of CPAP, history of TIA, osteoarthritis, rheumatoid arthritis, spinal stenosis, hiatal hernia, obesity, history of kidney stones and BPH. PREVIOUS SURGERIES: Ulnar nerve transposition, carpal tunnel release, right knee arthroscopy, Achilles tendon repair, bunionectomy, and tonsillectomy. SOCIAL HISTORY: The patient is . Retired. No tobacco use. ALLERGIES: KNOWN ALLERGY TO MOTRIN, ATENOLOL, AND LEVAQUIN. CURRENT MEDICATIONS: Allopurinol 300 mg p.o. daily, Coenzyme Q10 of 200 mg p.o. daily, diltiazem 300 mg p.o. daily, furosemide 40 mg p.o. b.i.d., losartan 100 mg p.o. daily, multivitamin daily, potassium chloride 20 mEq daily, stool softener daily, and Uroxatral 10 mg p.o. daily. FAMILY HISTORY: Significant for heart disease, otherwise unremarkable. REVIEW OF SYSTEMS: Significant for above stated conditions, otherwise unremarkable. PHYSICAL EXAMINATION: GENERAL: Well-developed and well-nourished elderly white male in no acute distress. Sitting on a bed. Alert and oriented. SKIN: Warm and dry with fair turgor. No rashes or lesions. No ecchymosis or erythema. HEENT: Normocephalic and atraumatic. Eyes, PERRLA and EOMI. Nares patent bilaterally without turbinate enlargement. Oropharynx is without erythema or exudate. No lesions noted. Uvula midline. Oral mucosa moist. Fair dentition. Multiple missing teeth and fillings are noted. HEART: RRR. No MGR. LUNGS: Clear to auscultation bilaterally. No crackles, rhonchi or wheezing. Good air movement. ABDOMEN: Obese. Bowel sounds present x4. Soft and nontender. No organomegaly. No masses. MUSCULOSKELETAL: Right hip evaluation reveals no obvious asymmetry or deformity. He has significant limitation in internal rotation. External rotation of around 40 degrees. Very limited abduction. Flexion of the hip is only to around 90 degrees. He tends to abduct and externally rotate with hip flexion. Strength is 5/5 for resisted hip flexion, abduction, and adduction. Ambulatory with an antalgic gait. NEUROLOGIC: Gross sensation is intact across the lower extremities by soft touch. Peripheral pulses are 1+. 1+ peripheral edema. Cranial nerves II-XII are intact. DATA: Radiographic imaging previously obtained in January shows significant joint space narrowing, flattening of the femoral head, periarticular osteophytes, and subchondral sclerosis. He also has a large area of heterotopic ossification off of the iliac crest. IMPRESSION: Right hip end-stage degenerative joint disease. PLAN: Informed written consent will be obtained on the morning of surgery. Postoperative prescriptions for Percocet and Coumadin will be provided at discharge from the hospital. Anticipate discharge to home with 2 weeks of home health services and then outpatient PT. He will obtain medical clearance from Dr. Wagner. Preoperative lab work, EKG, and chest x-ray have been ordered. He already has access to a walker.
[2017-06-08] VITALS (8 sets, daily range): BP systolic 115–158; BP diastolic 46–83; PULSE 66–82; TEMP 36.4–37; O2SAT 90–94
[~2017-06-08] VITALS: Ht 182.9 cm; Wt 139.9 kg
[~2017-06-08 06:11] MED LIST changes: +CEFAZOLIN 3000MG IV PUSH 22.5 ML IV SCH; +LACTATED RINGER'S 1000ML 1,000 ML IV SCH; +LACTATED RINGER'S 1000ML 500 ML IV SCH; +LACTATED RINGER'S 1000ML IV SCH; +ROPIVACAINE 5MG/ML 30 ML 150 MG, BUPIVACAINE/EPINEPHR 0.5% MPF 30 ML, DEXAMETHASONE INJ... INFIL SCH; +ROPIVACAINE 5MG/ML 30 ML 150 MG, BUPIVACAINE/EPINEPHR 0.5% MPF 30 ML, KETOROLAC TROMETH... INFIL SCH; +TRANEXAMIC ACID INJ 1,000 MG x 1 bag Topical TOP SCH
--- NOTE | 2017-06-08 06:19 | History & Physical Bridge Note ---
H&P Re-Evaluation Bridge Note: I have examined the patient, reviewed the History & Physical and in the interval since the performance of the History & Physical I have noted the following changes of clinical significance:consent obtained. No changes noted
[2017-06-08] MEDS ORDERED: BUPIVACAINE 0.5 % 5 MG/1 ML PF 10ML VIAL ONE (06:27)
[2017-06-08] MEDS ORDERED: FENTANYL CITRATE INJ 50 MCG/1 ML 2 ML VIAL ONE (08:03)
[2017-06-08] MEDS ORDERED: MIDAZOLAM HCL 1 MG/ML 2ML VIAL ONE (08:03)
[2017-06-08] MEDS ORDERED: POVIDONE-IODINE OP SOLN 30 ML BTL ONE (08:37)
[2017-06-08] MEDS ORDERED: ORTHO JOINT ANESTHETIC ONE (08:37)
[2017-06-08] MEDS ORDERED: PROMETHAZINE HCL INJ 6.25 MG in SODIUM CHLORIDE 0.9% 50ML 50 ML IV PRN (09:00)
[2017-06-08] MEDS ORDERED: FENTANYL CITRATE INJ 50 MCG/1 ML 2 ML VIAL IV PRN (09:00)
[2017-06-08] MEDS ORDERED: EpHEDrine SULFATE INJ 50 MG/ML AMP IV PRN (09:00)
[2017-06-08] MEDS ORDERED: ONDANSETRON INJ 2 MG/ML 2 ML VIAL IV PRN ×2 (09:00→11:00)
[2017-06-08] MEDS ORDERED: ATROPINE SULFATE 0.1 MG/ML 5ML SYR IV PRN (09:00)
[2017-06-08] MEDS ORDERED: PROPOFOL IV EMULSION 10 MG/ML 20 ML VIAL IV ONE ×2 (09:45→10:14)
[2017-06-08] MEDS ORDERED: LIDOCAINE HCL 2% 2 ML VIAL (20MG/ML) ONE (09:45)
[2017-06-08] MEDS ORDERED: EpHEDrine SULFATE 50MG/5ML SYR ONE (09:48)
--- NOTE | 2017-06-08 10:30 | [facility] Post Operative Brief Note ---
Immediate Operative Summary Operative Date Jun 08, 2017. Pre-Operative Diagnosis Right Hip End-Stage Degenerative Joint Disease Post-Operative Diagnosis Right Hip End-Stage Degenerative Joint Disease Procedure(s) Performed Right Total Hip Arthroplasty--Uncemented Surgeon Dr. Oscar Sole Cementer Surgeon(s) Dr. Christopher Ballesteros (Fellow)/[facility] Estimated Blood Loss 300 ml Findings Consistent with Post-Op Diagnosis Fluids (cc crystalloids) 1600cc Specimens A. Right Femoral Head Drains None Anesthesia Type Spinal MAC Complication(s) none Disposition Accompanied Pt To Recover: no Disposition: Recovery Room / PACU
[2017-06-08] MEDS ORDERED: BISACODYL 10 MG SUPP PR PRN (11:00)
[2017-06-08] MEDS ORDERED: TAMSULOSIN HCL 0.4 MG CAP PO PRN (11:00)
[2017-06-08] MEDS ORDERED: MoRPHine SULFATE 2 MG/ML CARP IV PRN ×2 (11:00→13:00)
[2017-06-08] MEDS ORDERED: METOCLOPRAMIDE HCL INJ 5 MG/ML 2 ML VIAL IV PRN (11:00)
[2017-06-08] MEDS ORDERED: MAGNESIUM HYDROXIDE SUSP 30 ML UDC PO PRN (11:00)
[2017-06-08] MEDS ORDERED: DiphenhydrAMINE HCL 50 MG/ML VIAL IV PRN (11:00)
[2017-06-08] MEDS ORDERED: ALUMINUM/MAGNESIUM/SIMETH (MAALOX MAX) 30 ML UDC PO PRN (11:00)
[2017-06-08] MEDS ORDERED: ACETAMINOPHEN 325 MG TAB PO PRN (11:00)
--- NOTE | 2017-06-08 11:03 | Anesthesiology Progress Note ---
Anesthesia Post Op Note Date & Time Jun 08, 2017 at 11:03 Vital Signs Pain Intensity: 4 Vital Signs Past 12 Hours Date Time Temp Pulse Resp B/P (MAP) Pulse Ox O2 Delivery O2 Flow Rate FiO2 06/08/17 07:22 37 70 20 124/46 93 Room Air Notes Mental Status: alert / awake / arousable, participated in evaluation Pt Amnestic to Procedure: Yes Nausea / Vomiting: adequately controlled Pain: adequately controlled Airway Patency, RR, SpO2: stable & adequate BP & HR: stable & adequate Hydration State: stable & adequate Neuraxial Anesthesia: was administered, sensory block is resolving Anesthetic Complications: no major complications apparent
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
--- NOTE | 2017-06-08 11:56 | DIAGNOSTIC IMAGING REPORT ---
AP PELVIS History: Right total hip arthroplasty. Degenerative arthritis. Postop. FINDINGS: The patient is status post a right total hip arthroplasty. The hardware is intact. No fracture or dislocation. Skin rj and surgical drains are in place. IMPRESSION: Right total hip arthroplasty. No evidence for hardware complication Electronically signed by: Frankie Chapman M.D. 06/08/2017 11:55 AM Dictated Date/Time: 06/08/2017 11:54 AM
[2017-06-08] MEDS ORDERED: D5W AND 1/2NSS + 20MEQ KCL 1,000 ML IV SCH (12:45)
[2017-06-08] MEDS ORDERED: MoRPHine SULFATE 4 MG/ML 1 ML CARP\\VIAL IV PRN (13:00)
[2017-06-08] MEDS: FERROUS GLUCONATE 324 MG TAB PO SCH ×2 (13:13→17:48)
--- NOTE | 2017-06-08 13:31 | PROGRESS NOTE ---
DATE: 06/08/2017 Postoperative check, status post right total hip replacement. The patient is sitting up in bed, eating a snack. Drinking fluids, no issues. He denies any chest pain, shortness of breath, fever, chills, nausea, vomiting, or headache. He had some numbness in his right hand which was eliminated. His exam is benign. It is likely based on positioning during the procedure. Again, vital signs are stable. He is afebrile. Neurovascular check, femoral sciatic nerve is normal. Wound dressing clean, dry, and intact. Postop x-ray looks excellent. ASSESSMENT: Doing well. PLAN: Plan is to Hep-Lock IV after lunch and continue with care pathway. Weightbearing to tolerance. Gait training and occupational therapy only.
[2017-06-08] MEDS: ACETAMINOPHEN IV 1,000 MG in EMPTY BAG 0 ML IV SCH ×2 (14:16→22:15)
[2017-06-08] MEDS ORDERED: WARFARIN SOD 5 MG TAB PO SCH (16:00)
[2017-06-08] MEDS: OXYCODONE HCL IR 5 MG TAB (IMMEDIATE RELEASE) PO PRN ×2 (16:15→20:17)
[2017-06-08] MEDS: CEFAZOLIN IV 2,000 MG in SYRINGE 0 ML IV SCH (17:47)
[2017-06-08] MEDS ORDERED: OXYC-57 PO (19:17)
[2017-06-08] MEDS ORDERED: WARF2TAB PO (19:17)
[2017-06-08] MEDS: OLOPATADINE HYDROCHLORIDE 5 ML BTL OPB SCH (20:18)
[2017-06-08] MEDS: FUROSEMIDE 40 MG TAB PO SCH (20:19)
[2017-06-08] MEDS: DOCUSATE SODIUM 100 MG CAP PO SCH (20:20)
[2017-06-08] MEDS ORDERED: ASPIRIN 81 MG ECTAB PO SCH (21:00)
[2017-06-08] MEDS ORDERED: ALFUZosin TAB 10 MG TAB PO SCH (21:00)
[2017-06-09] MEDS: OXYCODONE HCL IR 5 MG TAB (IMMEDIATE RELEASE) PO PRN ×3 (00:33→09:25)
[2017-06-09] MEDS: CEFAZOLIN IV 2,000 MG in SYRINGE 0 ML IV SCH (02:15)
[2017-06-09 03:22] VITALS: BP 133/80; PULSE 90; TEMP 36.2; O2SAT 88
[2017-06-09] MEDS: ACETAMINOPHEN IV 1,000 MG in EMPTY BAG 0 ML IV SCH (05:28)
[2017-06-09 05:58] LABS: BASO % 0.3 %; BASO ABS # 0.03 K/uL (0-0.2); EOS % 0.9 %; EOS ABS # 0.11 K/uL (0-0.5); HEMATOCRIT 36.5 % (42-52); HEMOGLOBIN 12.1 g/dL (14.0-18.0); IG# 0.05 K/uL (0.00-0.02); LYMPH % 7.8 %; LYMPH ABS # 0.93 K/uL (1.2-3.4); MEAN CELL VOLUME 88.2 fL (80-100); MEAN CORPUSCULAR HEMOGLOBIN 29.2 pg (25-34); MEAN CORPUSCULAR HGB CONC 33.2 g/dl (32-36); MEAN PLATELET VOLUME 9.8 fL (7.4-10.4); MONO % 8.8 %; MONO ABS # 1.04 K/uL (0.11-0.59); NEUT % 81.8 %; NEUT ABS # 9.71 K/uL (1.4-6.5); PLATELET COUNT 184 K/uL (130-400); RED CELL DISTRIBUTION WIDTH SD 45.1 fL (36.4-46.3); WHITE BLOOD COUNT 11.87 K/uL (4.8-10.8)
[2017-06-09 06:19] LABS: INR 1.1 (0.9-1.1)
[2017-06-09 06:32] LABS: CALCIUM 8.4 mg/dl (8.5-10.1); CREATININE 0.88 mg/dl (0.60-1.40); POTASSIUM 4.4 mmol/L (3.5-5.1)
--- NOTE | 2017-06-09 06:57 | PROGRESS NOTE ---
DATE: 06/09/2017 SUBJECTIVE: Postop day 1, status post right total hip replacement. The patient is doing well, has no major issues. He denies chest pain, shortness of breath, fever, chills, nausea, vomiting or headache. OBJECTIVE: Vital signs are stable. He is afebrile. Neurovascular check femoral sciatic nerve is normal. Wound dressing clean, dry and intact. Drain is removed. Hematology reveals that his hematocrit is stable at 36.5, white count is slightly elevated, likely based on stress and steroids. INR is 1.1. Chemistry is good. Glucoses are 120 range. ASSESSMENT: Doing well. Plan is for PT, OT today. Discharge today. Home health for nursing only. The wound VAC on Coumadin, keep INR 1.8-2.2. Discharge on 4 mg Coumadin. Check INR on Tuesday. Follow up 1 week for Prevena wound dressing change and in 2 weeks for staple removal. No marked PT sessions until he is 2 weeks postop. At this point in time, it is all gait training, postural control and occupational therapy protection.
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
[2017-06-09] MEDS ORDERED: DEXAMETHASONE INJ 10 MG in SYRINGE 0 ML IV ONE (07:30)
[2017-06-09 07:33] VITALS: BP 148/84; PULSE 85; TEMP 36.9; O2SAT 91
[2017-06-09] MEDS ORDERED: MULTIVITAMIN TAB PO SCH (09:00)
[2017-06-09] MEDS ORDERED: ALLOPURINOL 300 MG TAB PO SCH (09:00)
[2017-06-09] MEDS ORDERED: DILTIAZEM HCL 180 MG CAPCR PO SCH (09:00)
[2017-06-09] MEDS ORDERED: WARFARIN SOD 5 MG TAB PO ONE (09:00)
[2017-06-09] MEDS ORDERED: LOSARTAN POTASSIUM 50 MG TAB PO SCH (09:00)
[2017-06-09] MEDS ORDERED: PANTOprazole SOD 40 MG TAB PO SCH (09:00)
[2017-06-09] MEDS: OLOPATADINE HYDROCHLORIDE 5 ML BTL OPB SCH (09:00)
[2017-06-09] MEDS ORDERED: POTASSIUM CHLORIDE 20 MEQ TABCR PO SCH (09:00)
--- NOTE | 2017-06-09 09:05 | Discharge Instructions ---
Discharge Instructions Date of Service Jun 08, 2017. Admission Reason for Admission: Right Hip Osteoarthritis Discharge Discharge Diagnosis / Problem: Right hip s/p total hip replacement Discharge Goals Goal(s): Decrease discomfort, Improve function, Increase independence Activity Recommendations Activity Limitations: as noted below Lifting Limitations: gradually increase as tolerated Exercise/Sports Limitations: until after follow-up appointment Shower/Bathe: keep incision dry Driving or Machine Use: No driving until cleared by Dr. Oscar Weightbearing Status: Right weightbearing (as tolerated) . Instructions / Follow-Up Instructions / Follow-Up New Medicine: * You will likely be taking one or more of these medicines: 1. Percocet - Take, as directed, when you need it, every four to six hours to control your pain. 2. Coumadin - Thins your blood to lessen the chance of forming a blood clot. The dose of this is different for each person and is based on your blood tests that are done twice a week. * The most common side effects of pain medicine and iron are nausea and constipation. If nausea or constipation is too much of a problem or if you have any questions about your new medicines or doses, call [facility] at . We will try to help you manage these issues. VERY IMPORTANT TO READ AND REVIEW" Blood Clots and Blood Thinning Medicine: * You are given Coumadin during the immediate post-operative period to lessen the risk of blood clots forming in your legs and/or lungs. Coumadin is usually given for six weeks after surgery. * The prescription is for 2 mg tablets. At discharge, you should understand your dose and take it all at the same time every day, preferably after dinner. * You need to get your blood checked 1 - 2 times per week for six weeks, or as directed. * If your dose needs to change, we will call you. Do not take your medication on the day of the blood test until we call you. * If you don't hear from us after your blood draws, keep taking the same dose. Pain: * The immediate post-operative period after hip replacement surgery is often quite painful. * You are given a prescription for pain medicine. You should take it, as directed, when you need it, especially before physical therapy and before going to bed. Pain that interferes with sleep is very common and can last several months. * You will likely need pain medicine for the first two to four weeks. It will not stop all of the pain. The pain will lessen and as you feel better, you may change to milder pain medicine such as Tylenol. * The most common side effects of pain medicine are nausea and constipation, so don't take more than you need. Physical Therapy: * Follow the "Hip Precautions Instructions." * In some cases, the social media intern at the hospital will arrange to have a therapist come to your house for the first couple of weeks to help you learn these skills. * You need to practice on your own or with the help of a family member as needed. * When you learn these skills, most of the therapy can be done on your own. Home Exercise: * You were shown a series of exercises in the hospital. Do these exercises three to four times each day including the exercises you were shown in physical therapy. Walking: * Get up and walk several times each day. For the first four weeks, try not to stand or walk for more than one hour at a time. If you do stand or walk for more than one hour, you will not hurt anything, but your leg will likely swell. * As you feel comfortable, you may change from the walker or crutches to a cane and then to independent walking. SELF CARE INSTRUCTIONS AFTER TOTAL HIP REPLACEMENT Until the incision and soft tissues around your hip have healed, there is a possibility that the hip prosthesis could dislocate. A. Observe the following precautions to prevent dislocation: 1. Don't bend your hip greater than 90 degrees. 2. Avoid crossing your legs or ankles while standing or lying. 3. Sit with your feet placed 6 inches apart. 4. When sitting, keep your knees below your hips. Sit on a firm surface, avoid deep, soft chairs and couches. Use an elevated toilet seat in the bathroom. 5. Don't bend over at the waist. Use a long handled shoehorn and a sock aid to help you put on your shoes and socks. A chief safety officer can help you pick up and delivery driver objects that are too high or too low to reach. 6. Keep car riding to a minimum for at least one month after surgery. B. Your balance may be shaky for a while. Use crutches or a walker until directed by your doctor. C. Use hand rails when walking on stairs. D. Wear low heeled shoes with non-slip soles. E. Be sure that your floors are free of things that could trip you - throw rugs , electrical cords, small objects. Avoid wet and waxed floors, especially with crutches and canes. F. Try to walk several times a day with rest periods between. G. Continue with all the exercises taught to you in the hospital. Again, make walking a part of your daily routine. VERY IMPORTANT TO READ AND REVIEW A. Take Coumadin, or Lovenox (blood thinning medications) as directed by your doctor. If you are on Coumadin, have a pro-time (blood test) drawn according to your doctor's instructions. This will tell the doctor how well the Coumadin is thinning your blood. B. There are a few signs you need to watch for after you are home. If you notice any of the followin. Increased severe hip pain. Some pain is expected especially when you exercise. 2. Increased swelling in your leg or knee; pain or swelling of the calf muscle in either lower leg. 3. Any fluid drainage from the incision. 4. Shortness of breath or chest pain. TEDs/Elastic Stockings: * The white elastic stockings help limit swelling and prevent blood clots from forming in your legs. The more you wear them, the more they work. * Wear them for six weeks. Prevention of Infection: * Take antibiotics one hour before any dental cleaning, dental work, urological procedure, gastrointestinal procedure or any invasive surgery in order to prevent your new joint from getting infected. * You may get the antibiotics from the doctor performing the procedure or we will call in a prescription to the pharmacy of your choice. Call the office for a prescription at least 2 days prior to your appointment. Things to Watch For: * Drainage from the incision site that occurs more than one week after your surgery. * Severely increased leg pain or swelling. * Increased redness at the incision site. * Fever above 101 degrees Fahrenheit. * Unusual chest pain or shortness of breath. * Unusual pain or burning with urination. Current Hospital Diet Patient's current hospital diet: Regular Diet Discharge Diet Recommended Diet: Regular Diet Procedures Procedures Performed: Right Total Hip Arthroplasty--Uncemented Pending Studies Studies pending at discharge: no Laboratory Results Hemoglobin A1c Test 05/24/17 10:05 Range/Units Estimated Average Glucose 114 mg/dl Hemoglobin A1c 5.6 4.5-5.6 % Medical Emergencies . Who to Call and When: Medical Emergencies: If at any time you feel your situation is an emergency, please call 911 immediately. . Non-Emergent Contact Non-Emergency issues call your: Primary Care Provider, Surgeon Call Non-Emergent contact if: temperature is above 101, wound has increased drainage, wound has increased redness, wound has increased pain, you have any medication questions . "Provider Documentation" section prepared by Akin Graham PA-C. . [facility] Monitoring Program Search Results: no issues identified
[2017-06-09 09:06] VITALS: TEMP 36.9
[2017-06-09] MEDS: FUROSEMIDE 40 MG TAB PO SCH (09:13)
[2017-06-09] MEDS: DOCUSATE SODIUM 100 MG CAP PO SCH (09:13)
[2017-06-09] MEDS: FERROUS GLUCONATE 324 MG TAB PO SCH ×2 (09:13→12:42)
--- NOTE | 2017-06-09 09:13 | Orthopedic Progress Note ---
Orthopedic Progress Note Date of Service Jun 09, 2017. Subjective Post OP Day: 1 Reports: feeling well, Denies: complaints, chest pain, SOB, nausea / vomiting, light headedness, calf pain Additional Notes: family at bedside Objective calves soft nontender, N/V intact, hip located, capillary refill less than 2 sec., dressing C/D/I, incision C/D/I, A&O x3, toes mobile, CMS intact dressing intact. Upon removal, wound looks good. Drain has already been removed. Date Time Temp Pulse Resp B/P (MAP) Pulse Ox O2 Delivery O2 Flow Rate FiO2 06/09/17 08:00 Room Air 06/09/17 07:33 36.9 85 18 148/84 (105) 91 Room Air 06/09/17 03:22 36.2 90 16 133/80 (97) 88 CPAP 06/08/17 23:10 CPAP 06/08/17 23:00 36.8 82 17 158/83 (108) 90 CPAP 06/08/17 19:46 36.5 77 19 154/82 (106) 92 Room Air 06/08/17 16:10 Nasal Cannula 4.0 06/08/17 14:50 36.5 75 17 115/66 (82) 92 Nasal Cannula 4.0 06/08/17 13:50 36.6 70 18 130/64 (86) 93 Nasal Cannula 4.0 06/08/17 12:47 36.4 70 17 121/68 (85) 92 Nasal Cannula 4.0 06/08/17 12:21 36.4 66 16 117/68 (84) 94 Nasal Cannula 4.0 06/08/17 11:50 Nasal Cannula 4.0 06/08/17 11:50 94 Nasal Cannula 4.0 06/08/17 11:41 66 19 107/55 93 06/08/17 11:41 69 19 06/08/17 11:36 69 16 94 06/08/17 11:36 70 16 06/08/17 11:35 117/70 06/08/17 11:33 36.2 94 Nasal Cannula 4 06/08/17 11:31 64 17 06/08/17 11:31 64 17 93 06/08/17 11:30 119/63 06/08/17 11:29 62 14 06/08/17 11:29 61 14 94 06/08/17 11:25 108/68 06/08/17 11:24 67 15 06/08/17 11:24 68 15 93 06/08/17 11:23 113/70 06/08/17 11:20 90/72 06/08/17 11:19 62 13 06/08/17 11:19 62 13 94 06/08/17 11:16 117/63 06/08/17 11:14 66 17 06/08/17 11:14 67 17 94 06/08/17 11:13 60 16 06/08/17 11:13 61 16 94 06/08/17 11:10 138/61 06/08/17 11:08 65 17 92 06/08/17 11:08 64 17 06/08/17 11:06 107/54 06/08/17 11:03 69 18 92 06/08/17 11:03 69 18 06/08/17 11:01 109/61 06/08/17 10:58 65 14 06/08/17 10:58 65 14 93 06/08/17 10:56 117/59 06/08/17 10:53 59 19 92 06/08/17 10:53 59 19 06/08/17 10:50 121/66 06/08/17 10:49 112/63 06/08/17 10:48 66 16 89 06/08/17 10:48 36.2 18 112/63 93 Nasal Cannula 2 06/08/17 10:48 66 16 Laboratory Results 24 Hours: Test 06/09/17 05:31 White Blood Count 11.87 K/uL Red Blood Count 4.14 M/uL Hemoglobin 12.1 g/dL Hematocrit 36.5 % Mean Corpuscular Volume 88.2 fL Mean Corpuscular Hemoglobin 29.2 pg Mean Corpuscular Hemoglobin Concent 33.2 g/dl Platelet Count 184 K/uL Mean Platelet Volume 9.8 fL Neutrophils (%) (Auto) 81.8 % Lymphocytes (%) (Auto) 7.8 % Monocytes (%) (Auto) 8.8 % Eosinophils (%) (Auto) 0.9 % Basophils (%) (Auto) 0.3 % Neutrophils # (Auto) 9.71 K/uL Lymphocytes # (Auto) 0.93 K/uL Monocytes # (Auto) 1.04 K/uL Eosinophils # (Auto) 0.11 K/uL Basophils # (Auto) 0.03 K/uL Prothromb Time International Ratio 1.1 Prothrombin Time 11.3 SECONDS Assessment & Plan Assessment: Right hip post op day 1 total hip arthroplasty Plan: PT/OT today maintain total hip precautions coumadin per nomogram Home today with home nursing for blood draws dressing changed today-Prevena wound vac applied Discharge Planning Discharge Planning: home with home health Pain Management: Percocet DVT Prophylaxis: TEDs, SCDs, Coumadin Therapy: Physical Therapy, Occupational Therapy
[2017-06-09 09:36] VITALS: BP 142/77; PULSE 86; O2SAT 95
--- NOTE | 2017-06-09 14:18 | Anesthesiology Progress Note ---
Anesthesia Post Op Note Date & Time Jun 09, 2017 at 14:17 Vital Signs Vital Signs Past 12 Hours Date Time Temp Pulse Resp B/P (MAP) Pulse Ox O2 Delivery O2 Flow Rate FiO2 06/09/17 09:36 86 20 142/77 (98) 95 Room Air 06/09/17 09:06 36.9 85 18 91 Room Air CPAP 06/09/17 08:00 Room Air 06/09/17 07:33 36.9 85 18 148/84 (105) 91 Room Air 06/09/17 03:22 36.2 90 16 133/80 (97) 88 CPAP Notes Mental Status: alert / awake / arousable, participated in evaluation Pt Amnestic to Procedure: Yes Nausea / Vomiting: adequately controlled Pain: adequately controlled Airway Patency, RR, SpO2: stable & adequate BP & HR: stable & adequate Hydration State: stable & adequate Neuraxial Anesthesia: sensory block resolved Anesthetic Complications: no major complications apparent
--- NOTE | 2017-06-09 17:38 | [facility] Operative Report ---
Operative Report Operative Date Jun 09, 2017. Pre-Operative Diagnosis Right Hip End-Stage Degenerative Joint Disease Post-Operative Diagnosis Right Hip End-Stage Degenerative Joint Disease Procedure(s) Performed Right Total Hip Arthroplasty--Uncemented Surgeon Dr. Oscar Director Emergency Surgeon(s) Dr. Christopher Ballesteros (Fellow)/[facility] Estimated Blood Loss 300 ml Findings Right hip end-stage DJD Fluids 1600cc Specimens A. Right Femoral Head Drains None Anesthesia Type Spinal MAC Complication(s) none Disposition no Recovery Room / PACU Indications This 71-year-old white male presented to the office with complaints of intractable right hip pain. He had tried conservative care measures including activity modification, use of an assistive device, and oral pain medication without relief. He elected to proceed with surgical intervention after being educated about potential risks and outcomes. Preoperative imaging was obtained. Description of Procedure Patient was administered a spinal anesthetic and then taken to the operating room where he was given sedation. He was prepped and draped in usual sterile fashion. Please see Dr. Oscar's operative report for specifics of the procedure. I was present for the entire case from initial patient positioning through final wound closure. Assistance was provided in tissue retraction, hemostasis, trial implant placement, final implant placement, and final wound closure. Patient was taken to the recovery room in satisfactory condition. I attest to the content of the Intraoperative Record and any orders documented therein. Any exceptions are noted below.
== END 2017-06-09 14:49 | disposition home health service (06) | DRG 470 ==
LOC: C.ACU 06:11 → C.3E 06:20 → ENRESERV 11:23
PROVIDERS: ADMIT Physical Medicine & Rehabilitation Sports Medicine; ATTEND Physical Medicine & Rehabilitation Sports Medicine
PROC: 0SR90JA Replacement of Right Hip Joint with Synthetic Substitute, Uncemented, Open Approach (ICD-10-PCS; principal; 2017-06-08 08:50)
DX: M16.11 Unilateral primary osteoarthritis, right hip (principal); Z68.41 Body mass index [BMI] 40.0-44.9, adult; I10 Essential (primary) hypertension; G47.30 Sleep apnea, unspecified; E66.9 Obesity, unspecified; N40.0 Benign prostatic hyperplasia without lower urinary tract symptoms; Z79.82 Long term (current) use of aspirin; Z79.899 Other long term (current) drug therapy; Z86.73 Personal history of transient ischemic attack (TIA), and cerebral infarction without residual deficits; Z88.6 Allergy status to analgesic agent; Z88.8 Allergy status to other drugs, medicaments and biological substances

== ENCOUNTER 2022-09-12 05:08 | Inpatient (IN) ==
--- NOTE | 2022-09-12 06:36 | Emergency Department Note ---
Impression & Plan Acute UTI (urinary tract infection), Sepsis, Hypoxia ED Provider Note Name: BRENDAN LOPEZ Age: 76 Sex: M Arrives Via: Ambulance Informant: Patient, Family ED Provider: Raj Arellano MD Chief Complaint: Illness Impression: Impression above Medical Decision Makin-year-old gentleman with extensive past medical history including CAD, hypertension, dyslipidemia, previous stroke, obesity, hypothyroidism, congestive heart failure arrives for evaluation of worsening confusion, shortness of breath, fever, weakness. He had a near/full syncopal event laying against a wall while on the toilet. Arrives tired though feeling much better now is nasal cannula O2 and getting some IV fluids via EMS. Septic work-up initiated and white blood cell count did come back relatively elevated. He was started on IV Zosyn 4.5 g IV. He was given a 500 mL IV bolus normal saline. Full 30/kg fluid bolus is not indicated in the setting of congestive heart failure, plus fact that he does not have any hypotension here or lactic acidosis. Given the syncope a CT head was obtained which was fortunately normal. As he is bit hypoxic CT chest was obtained as his chest x-ray looked normal fortunately CT chest is normal as well. CT abdomen pelvis with IV contrast does reveal thickened bladder and concern for UTI. UA is consistent with UTI. Of note his scrotal exam showed a moderately swollen tender right testicle. Given need for hospitalization hospitalist was consulted and they will further work-up patient. He did get an ultrasound eventually which revealed orchitis/epididymitis of the right testicle. Patient does not have Jean's gangrene and I feel he needs surgical evaluation. Prior Medical Record and Triage/Nursing Notes reviewed by Me External chart reviewed by me Differentials:Infection, dehydration, metabolic abnormality, hypo/hyperglycemia, electrolyte disturbance, anemia, hypoxia, cardiac sources, intracerebral event, toxicologic, neurologic, as well as other pathologies. Vital Signs: reviewed and remarkable for hypoxia on his typical 3 L but improved with 5 L Interventions: 500 mL IV normal saline, Zosyn 4.5 g IV Labs:Reviewed and remarkable for elevated white blood cell count, UA consisten t with UTI, all other labs reviewed by me Imaging: X ray results are stated below per my interpretation: Chest: 1 view: No infiltrate, no effusion, normal cardiac border. CT scans as per my informal interpretation. CT head without contrast no intracranial mass effect, overt hemorrhage or other concerning finding. CT of the chest with IV contrast no pneumonia, pneumothorax, pleural effusion. CT then pelvis with IV contrast free air, no obstruction no clear evidence of abscess. Thickened bladder wall noted EKG:As per my interpretation. Indication weakness. Sinus rhythm 84 bpm with a first-degree AV block. There is no ectopy nor ischemia. There is a QTc of 463. When compared to an EKG of December 24, 2017 there is no significant change Cardiac/Tele Monitoring: Cardiac Monitoring: An Order was placed for continuous cardiac monitoring. The monitor shows a rate of 80 with a normal sinus rhythm. Consults:Dr Ashleigh WOODS Hospitalist Plan: Disposition:Hospitalization. Condition: Good History of Present Illness:76-year-old gentleman arrives for evaluation of weakness. Patient with some mild right testicular pain throughout the day yesterday gradually worsening. Overnight he started feeling increasing shortness of breath fatigue and exhaustion. Daughter notes that he started becoming more confused with mildly slurred speech and generalized weakness. Home blood pressure was in the 90s and he had a temperature of 100.7. Due to worsening weakness and the fact he could not even get off the toilet and was just laying against the wall the family called 911. Patient states that he feels much better now that he has been placed on 5 L nasal cannula from his typical 3 L. He denies any current symptoms other than his right testicle is a bit sore and he feels somewhat short of breath. He admits chronic shortness of breath but this seems a bit worse than normal. Any exertion or laying flat makes it significantly worse. He is unsure if he has gained any weight recently. He denies any recent antibiotic use. No known sick contacts. Denies any falls, trauma, injuries. Past History:See Below Home Medications:See Below Allergies:See Below Vitals:Blood Pressure: 122/79, Pulse 84, RR 22, T 37.4C, O2 95% on 5L NC Physical Exam: GENERAL: Patient is unwell appearing and in mild distress. EYES: No scleral icterus, unremarkable pupils. RESPIRATORY: Mild dyspnea/tachypnea with some pursed lip breathing at times and mild diffuse crackles all lung christensen. CARDIOVASCULAR: Regular rate and rhythm.No murmurs, rubs, gallops appreciated. GASTROINTESTINAL: Abdomen soft, non-tender, no peritonitis : Moderately edematous scrotum with significant tenderness to palpation and some firmness over the right testicle. Minimal erythema noted EXTREMITIES: Normal motion all extremities, no cyanosis, 2+ pitting edema of the lower legs NEUROLOGIC: Alert and oriented, no gross focal neurologic deficit appreciated SKIN: No rash, no jaundice, no diaphoresis. PSYCH: Appropriate GCS: 15 ED Course: Times/Reassessments: Patient does appear much better after being on nasal cannula and a bit of IV fluids. Agreeable to hospitalization Raj Arellano MD Past Med/Surg History Medical History Arthritis, multiple joint involvement BPH with obstruction/lower urinary tract symptoms Cerebellar stroke Cerebrovascular small vessel disease Diastolic congestive heart failure Diastolic dysfunction DJD (degenerative joint disease) of hip Dyslipidemia Elevated prostate specific antigen (PSA) Enlarged aorta Gout High blood pressure Hyperglycemia Hypothyroidism Internal hemorrhoids Laryngopharyngeal reflux Lumbar radiculopathy Multiple pulmonary nodules Nephrolithiasis Numbness of tongue Obstructive sleep apnea Peripheral edema Polyneuropathy Pulmonary hypertension Restless legs syndrome Shortness of breath on exertion SNHL (sensorineural hearing loss) Spinal stenosis Thoracic aortic aneurysm Urinary retention Venous ulcers of both lower extremities Surgical History H/O knee surgery History of ankle surgery History of carpal tunnel surgery History of colonoscopy History of hip replacement Status post left foot surgery Family History Father Hypertension Heart disease Myocardial infarction Mother Heart disease Other Allergies Hearing loss Nephrolithiasis Denies family history of Ovarian cancer Prostate cancer Diabetes Breast cancer Lung cancer Colorectal cancer Stroke Social History Smoking Status: Former smoker Tobacco Type: Cigarettes Age Started Using Tobacco: 16; Age Quit Using Tobacco: 62; packs per day: 1; Cigarettes Per Day: 1pk / day; Second Hand Exposure: No; Do You Dip or Chew Tobacco: Yes; Hx Alcohol Use: No Hx Substance Use: No Preferred Language: German Communication Ability: Effective Visual Impairment: Limited Hearing Ability: Use of Hearing Aid Electrostatic Painter Required: No Beliefs That Will Affect Care: None marital status: Current Living Situation: Spouse current occupational status: retired How many Children do You have: 2 Feels Safe at Home: Yes Safety Concerns: Feels Safe At This Time Childhood Exposure to Second-Hand Smoke: Yes Diet: regular caffeine: Yes Dental Care, Regularly: Yes Physical Activity Frequency: Does not Exercise Seatbelt Use: always Sunscreen Use: Yes Gender Identity: Male Assistive Devices: Cane, CPAP, Denture - Upper, Hearing Aid - Bilateral, Oxygen - at Night and Oxygen - Continuous Allergies Allergies Allergy/AdvReac Type Severity Reaction Status Date / Time ibuprofen Allergy Severe THROAT Verified 08/11/22 11:01 SWELLING Sulfa (Sulfonamide Allergy Severe Throat Verified 08/11/22 11:01 Antibiotics) tightness atenolol Allergy Mild throat Verified 08/11/22 11:01 swelling levofloxacin Allergy Unknown Unknown Verified 08/11/22 11:01 voltarin Allergy Mild Uncoded 08/11/22 11:01 Home Meds Home Medications Medication Instructions Recorded Confirmed aspirin 81 mg tablet,delayed 81 mg PO HS 12/24/17 09/12/22 release (Agapito Low Dose Aspirin) bhmagjxr-gza-gzyaq acid 0.4 1 tab PO QAM 12/24/17 09/12/22 mg-lycopene 300 mcg-lutein 250 mcg tablet (Centrum Silver) naproxen sodium 220 mg capsule 220 mg PO DAILY 12/24/17 09/12/22 (Aleve) omega 5-ntu-nvs-fish oil 1,000 mg 1,000 mg PO QAM 12/24/17 09/12/22 (120 mg-180 mg) capsule (Fish Oil) vit A 300 mcg-C 200 mg-E 27 1 tab PO DAILY 12/24/17 09/12/22 mg-lutein 2 mg and minerals tablet (Vision Formula (with lutein)) cetirizine 10 mg tablet (Zyrtec) 10 mg PO QAM 01/03/21 09/12/22 glucosamine-chondroitin 250 mg-200 2 tab PO BID 01/03/21 09/12/22 mg tablet (Osteo Bi-Flex) fluticasone propionate 50 2 spray intranasal QAM 09/28/21 09/12/22 mcg/actuation nasal spray,suspension coenzyme Q10 100 mg capsule 200 mg PO QAM 08/11/22 09/12/22 (CoQ-10) Vitamin B12 1 tab PO DAILY 09/12/22 09/12/22 allopurinol 300 mg tablet 300 mg PO DAILY 09/12/22 09/12/22 cholecalciferol (vitamin D3) 125 5,000 unit PO DAILY 09/12/22 09/12/22 mcg (5,000 unit) tablet (Vitamin D3) diltiazem HCl 360 mg capsule,24 360 mg PO DAILY 09/12/22 09/12/22 hr,extended release docusate sodium 100 mg capsule 100 mg PO BID 09/12/22 09/12/22 (Stool Softener) losartan 100 mg tablet 100 mg PO DAILY 09/12/22 09/12/22 potassium chloride 20 mEq 40 meq PO DAILY 09/12/22 09/12/22 tablet,extended release(part/cryst) Previous Rx's Medication Instructions Recorded CPAP Machine #1 ea 09/11/19 CPAP Supplies #1 ea 09/19/20 capsaicin 0.033 % topical cream 1 applic topical QID PRN pain 06/23/21 (Zostrix) #56.6 grams olopatadine 0.1 % eye drops See Rx Instructions .Route 09/21/21 .COMPLEX #5 mL alfuzosin 10 mg tablet,extended 10 mg PO DAILY #90 tabs 02/26/22 release 24 hr (Uroxatral) fluticasone furoate 100 1 inh inhalation QAM #60 ea 03/10/22 mcg-vilanterol 25 mcg/dose inhalation powder furosemide 40 mg tablet See Rx Instructions .Route 04/05/22 .COMPLEX #90 tabs rosuvastatin 5 mg tablet 5 mg PO .COMPLEX #90 tabs 04/05/22 carvedilol 3.125 mg tablet 3.125 mg PO BID #180 tabs 06/09/22 levothyroxine 50 mcg tablet 50 mcg PO QAM #90 tabs 08/02/22 diclofenac sodium 1 % topical gel 2 g topical QID PRN Pain #100 grams 08/11/22 (Voltaren Arthritis Pain) dutasteride 0.5 mg capsule 0.5 mg PO DAILY #90 caps 08/13/22 (Avodart) furosemide 80 mg tablet See Rx Instructions .Route 09/02/22 .COMPLEX #90 tabs Results & Data (ED) Vital Signs Vital Signs - 24 hr 09/12/22 05:15 09/12/22 05:15 09/12/22 05:29 Temperature 37.4 C Temperature Source Oral Pulse Rate 84 Pulse Rate [Apical] Pulse Rate from SpO2 Sensor Pulse Rhythm Regular Pulse Strength Normal Respiratory Rate 22 Respiratory Effort / Characteristics Non-Labored Spontaneous Non-Labored Spontaneous Respiratory Depth Normal Normal Respiratory Pattern Regular Regular Blood Pressure 122/79 Blood Pressure [Right Arm] Blood Pressure Mean 93 Blood Pressure Mean [Right Arm] Blood Pressure Position Sitting Pulse Oximetry 94 95 Oxygen Delivery Method Nasal Cannula Nasal Cannula Nasal Cannula Oxygen Flow Rate 5 5 5 Sepsis Recent Fever Within 48 Hours Yes Sepsis New/Unexplained Change in Mental Status N/A Sepsis Action Taken by Nursing No Action Required 09/12/22 05:27 09/12/22 07:27 09/12/22 08:00 Temperature Temperature Source Pulse Rate 86 Pulse Rate [Apical] 87 86 Pulse Rate from SpO2 Sensor Pulse Rhythm Pulse Strength Respiratory Rate 20 22 Respiratory Effort / Characteristics Non-Labored Non-Labored Spontaneous Respiratory Depth Normal Normal Respiratory Pattern Blood Pressure Blood Pressure [Right Arm] 100/77 115/54 L Blood Pressure Mean Blood Pressure Mean [Right Arm] 84 74 Blood Pressure Position Pulse Oximetry 95 96 Oxygen Delivery Method Nasal Cannula Nasal Cannula Oxygen Flow Rate 5 5 Sepsis Recent Fever Within 48 Hours Sepsis New/Unexplained Change in Mental Status Sepsis Action Taken by Nursing 09/12/22 09:10 09/12/22 09:30 09/12/22 10:00 Temperature Temperature Source Pulse Rate 84 Pulse Rate [Apical] 82 79 Pulse Rate from SpO2 Sensor Pulse Rhythm Pulse Strength Respiratory Rate 20 20 Respiratory Effort / Characteristics Non-Labored Spontaneous Non-Labored Respiratory Depth Normal Normal Respiratory Pattern Blood Pressure Blood Pressure [Right Arm] 129/68 111/78 Blood Pressure Mean Blood Pressure Mean [Right Arm] 88 89 Blood Pressure Position Pulse Oximetry 96 95 Oxygen Delivery Method Nasal Cannula Nasal Cannula Oxygen Flow Rate 5 5 Sepsis Recent Fever Within 48 Hours Sepsis New/Unexplained Change in Mental Status Sepsis Action Taken by Nursing 09/12/22 05:21 09/12/22 05:30 09/12/22 06:00 Temperature Temperature Source Pulse Rate 86 85 84 Pulse Rate [Apical] Pulse Rate from SpO2 Sensor 85 83 84 Pulse Rhythm Pulse Strength Respiratory Rate 25 H 28 H 27 H Respiratory Effort / Characteristics Respiratory Depth Respiratory Pattern Blood Pressure Blood Pressure [Right Arm] Blood Pressure Mean Blood Pressure Mean [Right Arm] Blood Pressure Position Pulse Oximetry 92 95 94 Oxygen Delivery Method Oxygen Flow Rate Sepsis Recent Fever Within 48 Hours Sepsis New/Unexplained Change in Mental Status Sepsis Action Taken by Nursing 09/12/22 06:30 09/12/22 07:00 09/12/22 07:23 Temperature Temperature Source Pulse Rate 83 84 Pulse Rate [Apical] Pulse Rate from SpO2 Sensor 83 84 Pulse Rhythm Pulse Strength Respiratory Rate 19 20 Respiratory Effort / Characteristics Respiratory Depth Respiratory Pattern Blood Pressure 100/77 Blood Pressure [Right Arm] Blood Pressure Mean 85 Blood Pressure Mean [Right Arm] Blood Pressure Position Pulse Oximetry 97 96 Oxygen Delivery Method Oxygen Flow Rate Sepsis Recent Fever Within 48 Hours Sepsis New/Unexplained Change in Mental Status Sepsis Action Taken by Nursing 09/12/22 07:23 09/12/22 07:30 09/12/22 08:00 Temperature Temperature Source Pulse Rate 84 85 86 Pulse Rate [Apical] Pulse Rate from SpO2 Sensor 85 85 83 Pulse Rhythm Pulse Strength Respiratory Rate 33 H 36 H 25 H Respiratory Effort / Characteristics Respiratory Depth Respiratory Pattern Blood Pressure Blood Pressure [Right Arm] Blood Pressure Mean Blood Pressure Mean [Right Arm] Blood Pressure Position Pulse Oximetry 96 96 96 Oxygen Delivery Method Oxygen Flow Rate Sepsis Recent Fever Within 48 Hours Sepsis New/Unexplained Change in Mental Status Sepsis Action Taken by Nursing 09/12/22 08:01 09/12/22 08:01 09/12/22 08:30 Temperature Temperature Source Pulse Rate 87 89 Pulse Rate [Apical] Pulse Rate from SpO2 Sensor 83 Pulse Rhythm Pulse Strength Respiratory Rate 36 H 19 Respiratory Effort / Characteristics Respiratory Depth Respiratory Pattern Blood Pressure 115/54 L Blood Pressure [Right Arm] Blood Pressure Mean 73 Blood Pressure Mean [Right Arm] Blood Pressure Position Pulse Oximetry 93 Oxygen Delivery Method Oxygen Flow Rate Sepsis Recent Fever Within 48 Hours Sepsis New/Unexplained Change in Mental Status Sepsis Action Taken by Nursing 09/12/22 09:00 09/12/22 09:01 09/12/22 09:01 Temperature Temperature Source Pulse Rate 84 85 Pulse Rate [Apical] Pulse Rate from SpO2 Sensor 82 86 Pulse Rhythm Pulse Strength Respiratory Rate 31 H 31 H Respiratory Effort / Characteristics Respiratory Depth Respiratory Pattern Blood Pressure 120/65 Blood Pressure [Right Arm] Blood Pressure Mean 80 Blood Pressure Mean [Right Arm] Blood Pressure Position Pulse Oximetry 95 96 Oxygen Delivery Method Oxygen Flow Rate Sepsis Recent Fever Within 48 Hours Sepsis New/Unexplained Change in Mental Status Sepsis Action Taken by Nursing 09/12/22 09:30 09/12/22 09:31 09/12/22 09:31 Temperature Temperature Source Pulse Rate 86 84 Pulse Rate [Apical] Pulse Rate from SpO2 Sensor 85 85 Pulse Rhythm Pulse Strength Respiratory Rate 24 37 H Respiratory Effort / Characteristics Respiratory Depth Respiratory Pattern Blood Pressure 129/68 Blood Pressure [Right Arm] Blood Pressure Mean 85 Blood Pressure Mean [Right Arm] Blood Pressure Position Pulse Oximetry 95 95 Oxygen Delivery Method Oxygen Flow Rate Sepsis Recent Fever Within 48 Hours Sepsis New/Unexplained Change in Mental Status Sepsis Action Taken by Nursing 09/12/22 10:00 09/12/22 10:00 Temperature Temperature Source Pulse Rate 83 Pulse Rate [Apical] Pulse Rate from SpO2 Sensor 79 Pulse Rhythm Pulse Strength Respiratory Rate 36 H Respiratory Effort / Characteristics Respiratory Depth Respiratory Pattern Blood Pressure 111/78 Blood Pressure [Right Arm] Blood Pressure Mean 89 Blood Pressure Mean [Right Arm] Blood Pressure Position Pulse Oximetry 95 Oxygen Delivery Method Oxygen Flow Rate Sepsis Recent Fever Within 48 Hours Sepsis New/Unexplained Change in Mental Status Sepsis Action Taken by Nursing Laboratory Data 09/12/22 05:36 09/12/22 05:36 Lab Results 09/12/22 09/12/22 09/12/22 Range/Units 05:36 05:36 05:36 WBC 18.80 H (4.8-10.8) K/ul RBC 4.30 L (4.70-6.10) M/uL Hgb 12.6 L (14.0-18.0) g/dl Hct 37.6 L (42.0-52.0) % MCV 87.4 (80.0-100.0) fL MCH 29.3 (25.0-34.0) pg MCHC 33.5 (32.0-36.0) g/dL RDW Std Deviation 43.4 (36.4-46.3) fL RDW Coeff of Jose Guadalupe 13.7 (11.5-14.5) % Plt Count 163 (130-400) K/uL MPV 11.3 (9.4-12.4) fL Immature Gran % (Auto) 0.7 % Neut % (Auto) 88.3 % Lymph % (Auto) 3.3 % [place] % (Auto) 7.1 % Eos % (Auto) 0.3 % Baso % (Auto) 0.3 % Neut # (Auto) 16.60 H (1.40-6.50) K/uL Lymph # (Auto) 0.62 L (1.2-3.4) K/uL [place] # (Auto) 1.33 H (0.11-0.59) K/uL Eos # (Auto) 0.05 (0-0.50) K/uL Baso # (Auto) 0.06 (0-0.2) K/uL Immature Gran # (Auto) 0.14 (0.01-0.20) K/uL Sodium 134 L (136-145) mmol/L Potassium 3.7 (3.5-5.1) mmol/L Chloride 101 (98-107) mmol/L Carbon Dioxide 26 (21-32) mmol/L Anion Gap 7 (3-11) BUN 16 (6-23) mg/dl Creatinine 0.77 (0.6-1.4) mg/dl Est Cr Clr Drug Dosing 125.6 ml/min Est GFR ( Amer) 102.2 ml/min Est GFR (Non-Af Amer) 88.1 ml/min BUN/Creatinine Ratio 20.8 H (10-20) Glucose 129 H (70-99(Fasting)) mg/dl Lactate (0.4-2.0) mmol/L Calcium 8.7 (8.6-10.3) mg/dl Magnesium 2.0 (1.7-2.4) mg/dl Total Bilirubin 0.8 (0.2-1.0) mg/dl Direct Bilirubin 0.2 (0-0.2) mg/dl AST 15 (13-39) U/L ALT 20 (7-52) U/L Alkaline Phosphatase 60 (34-104) U/L Troponin I High Sens 30.4 H (0-20) pg/ml B-Natriuretic Peptide (0-100) pg/ml Total Protein 7.0 (6.0-8.3) gm/dl Albumin 4.0 (3.4-5.0) gm/dl Procalcitonin 0.19 (0-0.5) ng/ml Urine Color Urine Appearance (Clear) Urine pH (4.5-7.5) Ur Specific [place] (1.000-1.030) Urine Protein (Negative) Urine Glucose (UA) (Negative) Urine Ketones (Negative) Urine Blood (Negative) Urine Nitrite (Negative) Urine Bilirubin (Negative) Urine Urobilinogen (Negative) Ur Leukocyte Esterase (Negative) Urine WBC (Auto) (0-5) /hpf Urine RBC (Auto) (0-4) /hpf U Hyaline Cast (Auto) (0-5) /lpf U Epithel Cells (Auto) (0-5) /lpf Urine Bacteria (Auto) (Negative) SARS-CoV-2 (PCR) (Negative) Influenza Type A (PCR) (Neg) Influenza Type B (PCR) (Neg) RSV (RT-PCR) (Neg) 09/12/22 09/12/22 09/12/22 Range/Units 06:49 06:49 07:07 WBC (4.8-10.8) K/ul RBC (4.70-6.10) M/uL Hgb (14.0-18.0) g/dl Hct (42.0-52.0) % MCV (80.0-100.0) fL MCH (25.0-34.0) pg MCHC (32.0-36.0) g/dL RDW Std Deviation (36.4-46.3) fL RDW Coeff of [place] Gu[place]upe (11.5-14.5) % Plt Count (130-400) K/uL MPV (9.4-12.4) fL Immature Gran % (Auto) % Neut % (Auto) % Lymph % (Auto) % [place] % (Auto) % Eos % (Auto) % Baso % (Auto) % Neut # (Auto) (1.40-6.50) K/uL Lymph # (Auto) (1.2-3.4) K/uL [place] # (Auto) (0.11-0.59) K/uL Eos # (Auto) (0-0.50) K/uL Baso # (Auto) (0-0.2) K/uL Immature Gran # (Auto) (0.01-0.20) K/uL Sodium (136-145) mmol/L Potassium (3.5-5.1) mmol/L Chloride (98-107) mmol/L Carbon Dioxide (21-32) mmol/L Anion Gap (3-11) BUN (6-23) mg/dl Creatinine (0.6-1.4) mg/dl Est Cr Clr Drug Dosing ml/min Est GFR ( Amer) ml/min Est GFR (Non-Af Amer) ml/min BUN/Creatinine Ratio (10-20) Glucose (70-99(Fasting)) mg/dl Lactate 1.3 (0.4-2.0) mmol/L Calcium (8.6-10.3) mg/dl Magnesium (1.7-2.4) mg/dl Total Bilirubin (0.2-1.0) mg/dl Direct Bilirubin (0-0.2) mg/dl AST (13-39) U/L ALT (7-52) U/L Alkaline Phosphatase (34-104) U/L Troponin I High Sens (0-20) pg/ml B-Natriuretic Peptide 105 H (0-100) pg/ml Total Protein (6.0-8.3) gm/dl Albumin (3.4-5.0) gm/dl Procalcitonin (0-0.5) ng/ml Urine Color Urine Appearance (Clear) Urine pH (4.5-7.5) Ur Specific [place] (1.000-1.030) Urine Protein (Negative) Urine Glucose (UA) (Negative) Urine Ketones (Negative) Urine Blood (Negative) Urine Nitrite (Negative) Urine Bilirubin (Negative) Urine Urobilinogen (Negative) Ur Leukocyte Esterase (Negative) Urine WBC (Auto) (0-5) /hpf Urine RBC (Auto) (0-4) /hpf U Hyaline Cast (Auto) (0-5) /lpf U Epithel Cells (Auto) (0-5) /lpf Urine Bacteria (Auto) (Negative) SARS-CoV-2 (PCR) NEGATIVE (Negative) Influenza Type A (PCR) Negative (Neg) Influenza Type B (PCR) Negative (Neg) RSV (RT-PCR) Negative (Neg) 09/12/22 Range/Units 07:19 WBC (4.8-10.8) K/ul RBC (4.70-6.10) M/uL Hgb (14.0-18.0) g/dl Hct (42.0-52.0) % MCV (80.0-100.0) fL MCH (25.0-34.0) pg MCHC (32.0-36.0) g/dL RDW Std Deviation (36.4-46.3) fL RDW Coeff of Jose Guadalupe (11.5-14.5) % Plt Count (130-400) K/uL MPV (9.4-12.4) fL Immature Gran % (Auto) % Neut % (Auto) % Lymph % (Auto) % [place] % (Auto) % Eos % (Auto) % Baso % (Auto) % Neut # (Auto) (1.40-6.50) K/uL Lymph # (Auto) (1.2-3.4) K/uL [place] # (Auto) (0.11-0.59) K/uL Eos # (Auto) (0-0.50) K/uL Baso # (Auto) (0-0.2) K/uL Immature Gran # (Auto) (0.01-0.20) K/uL Sodium (136-145) mmol/L Potassium (3.5-5.1) mmol/L Chloride (98-107) mmol/L Carbon Dioxide (21-32) mmol/L Anion Gap (3-11) BUN (6-23) mg/dl Creatinine (0.6-1.4) mg/dl Est Cr Clr Drug Dosing ml/min Est GFR ( Amer) ml/min Est GFR (Non-Af Amer) ml/min BUN/Creatinine Ratio (10-20) Glucose (70-99(Fasting)) mg/dl Lactate (0.4-2.0) mmol/L Calcium (8.6-10.3) mg/dl Magnesium (1.7-2.4) mg/dl Total Bilirubin (0.2-1.0) mg/dl Direct Bilirubin (0-0.2) mg/dl AST (13-39) U/L ALT (7-52) U/L Alkaline Phosphatase (34-104) U/L Troponin I High Sens (0-20) pg/ml B-Natriuretic Peptide (0-100) pg/ml Total Protein (6.0-8.3) gm/dl Albumin (3.4-5.0) gm/dl Procalcitonin (0-0.5) ng/ml Urine Color Dark Yellow Urine Appearance Cloudy A (Clear) Urine pH 5.5 (4.5-7.5) Ur Specific [place] 1.024 (1.000-1.030) Urine Protein 1+ H (Negative) Urine Glucose (UA) Negative (Negative) Urine Ketones Trace H (Negative) Urine Blood Negative (Negative) Urine Nitrite Positive A (Negative) Urine Bilirubin Negative (Negative) Urine Urobilinogen Negative (Negative) Ur Leukocyte Esterase 2+ H (Negative) Urine WBC (Auto) >30 H (0-5) /hpf Urine RBC (Auto) 0-4 (0-4) /hpf U Hyaline Cast (Auto) 5-10 H (0-5) /lpf U Epithel Cells (Auto) 5-10 H (0-5) /lpf Urine Bacteria (Auto) 4+ H (Negative) SARS-CoV-2 (PCR) (Negative) Influenza Type A (PCR) (Neg) Influenza Type B (PCR) (Neg) RSV (RT-PCR) (Neg) Administered Medications Piperacillin Sod/Tazobactam (Sod 4.5 gm/ Dextrose) 120 mls @ 30 mls/hr IV Q8H [facility]; Protocol Stop: 09/22/22 12:59 Last Admin: 09/12/22 12:38 Dose: 30 mls/hr Documented By: JACQUELYN Tamsulosin HCl (Tamsulosin Hcl 0.4 Mg Cap) 0.4 mg PO DAILY ELENO Stop: 10/12/22 11:38 Last Admin: 09/12/22 12:37 Dose: 0.4 mg Documented By: JACQUELYN Discontinued Medications Budesonide (Budesonide 0.5 Mg/2 Ml Vial (Pulmicort)) 0.5 mg NEB NOW STA Stop: 09/12/22 10:41 Last Admin: 09/12/22 11:21 Dose: 0.5 mg Documented By: [id number] Enoxaparin Sodium (Enoxaparin Inj 40 Mg/0.4 Ml Syr) 40 mg SQ Q12 ELENO Stop: 10/12/22 11:38 Last Admin: 09/12/22 13:06 Dose: Not Given Documented By: JACQUELYN Formoterol Fumarate (Formoterol 20 Mcg/2 Ml Vial) 20 mcg NEB NOW STA Stop: 09/12/22 10:41 Last Admin: 09/12/22 11:21 Dose: 20 mcg Documented By: [id number] Sodium Chloride (Nss) 500 mls @ 999 mls/hr IV .Q31M ONE Stop: 09/12/22 07:43 Last Infusion: 09/12/22 08:06 Dose: 0 mls/hr Documented By: Admin: 07/16/23 07:23 Dose: 999 mls/hr Documented By: THOMAS Cefepime HCl (Maxipime) 2,000 mg in 20 mls @ 5 mls/min IV NOW STA Stop: 09/12/22 07:16 Last Admin: 09/12/22 07:27 Dose: Not Given Documented By: THOMAS Piperacillin Sod/Tazobactam Sod (Zosyn) 4.5 gm in 120 mls @ 240 mls/hr IV NOW ONE Stop: 09/12/22 07:43 Last Infusion: 09/12/22 08:06 Dose: 0 mls/hr Documented By: Admin: 09/12/22 07:23 Dose: 240 mls/hr Documented By: THOMAS Ioversol (Optiray 320 125ml) 118 ml IV ONCE ONE Stop: 09/12/22 08:32 Last Admin: 09/12/22 08:32 Dose: 118 ml Documented By: SIXTO Imaging Data Radiologist's Impression: Chest X-Ray 09/12/22 06:32 XR chest 1V portable CLINICAL HISTORY: Sepsis TECHNIQUE: Single frontal radiograph of the chest was obtained. Comparison: Comparison is made to chest radiograph 09/17/2018 FINDINGS: Exam is limited by underpenetration. The cardiomediastinal silhouette is normal. Lungs are underinflated and right lower lung airspace opacity is seen. No evidence of pleural effusion or pneumothorax. IMPRESSION: Right lower lobe atelectasis without evidence of acute abnormality. ACT 112: Negative or not required by law. Electronically signed by: Lele Sloan M.D. 09/12/2022 9:23 AM Abdomen/Pelvis CT 09/12/22 07:15 CT abd pelvis IV con only CLINICAL HISTORY: sepsis, groin swelling TECHNIQUE: Helical axial images of the abdomen and pelvis were obtained and displayed. Automated dose lowering techniques and/or adjustment according to patient size were utilized for this exam. This exam was performed with intravenous contrast. COMPARISON: Comparison is made to CT abdomen pelvis 01/03/2021 FINDINGS: Exam is limited by patient body habitus. Lower chest: Bibasilar atelectasis versus scarring is seen. Liver: Unremarkable. No focal lesions are seen. Gallbladder and biliary tree: No calcified gallstones. Normal caliber wall. No intra- or extrahepatic biliary ductal dilation. Pancreas: Unremarkable, no focal lesions. Spleen: Unremarkable. Adrenals: Unremarkable. Kidneys and ureters: Renal cysts are seen. Bladder: Diffuse homogeneous wall thickening is seen in an underdistended bladder. Reproductive organs: Prostatomegaly is seen. Bowel: Diverticulosis is seen without diverticulitis. The appendix is normal. Lymph nodes Retroperitoneal: Subcentimeter lymph nodes are noted. Pelvic: Subcentimeter lymph nodes are noted. Mesenteric: Unremarkable. Peritoneum: Minimal soft tissue and fatty stranding is noted. Vessels: Atherosclerotic calcifications are seen. Abdominal wall: Unremarkable. 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 Degenerative changes are seen in the spine. IMPRESSION: 1. Diffuse thickening of the bladder wall is nonspecific and may be secondary t o underdistention, however correlation with urinalysis is recommended to exclude UTI. 2. Redemonstration of is seen mesentery which is nonspecific. ACT 112: Negative or not required by law. Electronically signed by: Lele Sloan M.D. 09/12/2022 8:[address] 09/12/22 07:15 CT head/brain wo con CLINICAL HISTORY: AMS earlier Technique: Contiguous axial CT images of the head were acquired from the base of the skull to the vertex without intravenous contrast administration. Images were viewed in brain, subdural and bone windows. Automated dose lowering techniques and/or adjustment according to patient size were utilized for this exam. Comparison: Comparison is made to CT head 01/20/2019 Findings: Areas of decreased attenuation are present in the periventricular and subcortical white matter bilaterally consistent with small vessel ischemic disease. Generalized cerebral atrophy with commensurate enlargement of the ventricles, sulci, and cisterns is also present. There is no acute intracranial hemorrhage or evidence of acute territorial infarction. No shift of the midline structures, mass effect, or extra-axial abnormalities are shown. Atherosclerotic calcifications are present in the intracranial segments of the internal carotid arteries. Calcifications of the falx noted. Imaged portions of the paranasal sinuses and mastoid air cells are clear. The o rbits appear normal. There are no acute fractures of the calvaria or scalp swelling. Impression: No acute intracranial hemorrhage, no evidence of acute territorial infarction or other acute intracranial disease process. ACT 112: Negative or not required by law. Electronically signed by: Lele Sloan M.D. 09/12/2022 8:[address] 09/12/22 07:20 CT chest diagnostic w con CLINICAL HISTORY: sepsis TECHNIQUE: Multidetector row helical CT of the chest was performed with intravenous contrast. Coronal and sagittal reformations were obtained. Automated dose lowering techniques and/or adjustment according to patient size were utilized for this exam. CT DOSE: 4978.51 mGy.cm Comparison: Comparison is made to CT chest 09/08/2022 FINDINGS: Lungs and pleura: Mild atelectasis is seen. A few pulmonary nodules measure up to 5 mm (series 8 images 60 and 68). Stable 12 mm nodule in the left upper lobe (image 60). Heart and pericardium: Heart size is normal. No pericardial effusion. Vessels: Moderate atherosclerotic changes in the aorta and coronary arteries. The ascending aorta measures up to 47 mm. Mediastinum and tala: Unremarkable. Chest wall and lower neck: Unremarkable. Abdomen: For findings below the diaphragm, please refer to CT of the abdomen dated the same. Bones: Unremarkable. IMPRESSION: Stable pulmonary nodules as above. ACT 112: Negative or not required by law. Electronically signed by: Lele Sloan M.D. 09/12/2022 8:52 AM Discharge Plan Visit Data Chief Complaint: Shortness of Breath/Dyspnea Stated Complaint: SOB, AMS, Weakness ED Provider: Raj Arellano Discharge Problem: Acute UTI (urinary tract infection), Sepsis, Hypoxia Patient Disposition: Admitted As Inpatient Discharge Instructions Interventions: ED Discharge Assessment Last Done: 09/12/22 11:40
[2022-09-12 07:06] LABS: Basophils # (auto) 0.06 K/uL (0-0.2); Basophils % (auto) 0.3 %; Eosinophils # (auto) 0.05 K/uL (0-0.50); Eosinophils % (auto) 0.3 %; Hematocrit (blood only) 37.6 % (42.0-52.0); Hemoglobin 12.6 g/dl (14.0-18.0); Immature Granulocytes # (auto) 0.14 K/uL (0.01-0.20); Immature Granulocytes % (auto) 0.7 %; Lymphocytes # (auto) 0.62 K/uL (1.2-3.4); Lymphocytes % (auto) 3.3 %; Mean Corpuscular Hemoglobin 29.3 pg (25.0-34.0); Mean Corpuscular Hgb Conc 33.5 g/dL (32.0-36.0); Mean Corpuscular Volume 87.4 fL (80.0-100.0); Mean Platelet Volume 11.3 fL (9.4-12.4); Monocytes # (auto) 1.33 K/uL (0.11-0.59); Monocytes % (auto) 7.1 %; Neutrophils % (auto) 88.3 %; Platelet Count 163 K/uL (130-400); RDW Coefficient of Variation 13.7 % (11.5-14.5); RDW Standard Deviation 43.4 fL (36.4-46.3)
[2022-09-12 07:11] LABS: BUN Creatinine Ratio 20.8 (10-20); Bilirubin Direct 0.2 mg/dl (0-0.2); Bilirubin,Total 0.8 mg/dl (0.2-1.0); Calcium 8.7 mg/dl (8.6-10.3); Creatinine Clr Calc Pharmacy 125.6 ml/min; Est GFR (African American) 102.2 ml/min; Est GFR (Non-African American) 88.1 ml/min; Potassium 3.7 mmol/L (3.5-5.1)
[2022-09-12] MEDS ORDERED: SODIUM CHLORIDE 0.9% 500 ML IV ONE (07:13)
[2022-09-12] MEDS ORDERED: CEFEPIME 2,000 MG/20 ML VIAL IV STA (07:13)
[2022-09-12] MEDS ORDERED: PIPERACILLIN/TAZOBACTAM 4.5 GM/120 ML BAG IV ONE (07:14)
[2022-09-12 07:16] LABS: Troponin I High Sensitivity 30.4 pg/ml (0-20)
[2022-09-12 08:06] LABS: Appearance Urine Cloudy (Clear); Bacteria Urine Automated 4+ (Negative); Bilirubin Urine Negative (Negative); Blood Urine Negative (Negative); Color Urine Dark Yellow; Glucose Urine UA Negative (Negative); Ketones Urine Trace (Negative); Leukocyte Esterase Urine 2+ (Negative); Nitrite Urine Positive (Negative); Protein Urine 1+ (Negative); RBC Urine Automated 0-4 /hpf (0-4); Specific Gravity Urine 1.024 (1.000-1.030); Urobilinogen Urine Negative (Negative); WBC Urine Automated >30 /hpf (0-5); pH Urine 5.5 (4.5-7.5)
[2022-09-12 08:07] LABS: Influenza A virus by PCR Negative (Neg); Influenza B virus by PCR Negative (Neg); RSV by PCR Negative (Neg); SARS CoV2 RNA(COVID-19) Ceph NEGATIVE (Negative)
[2022-09-12] MEDS ORDERED: OPTIRAY 320 125ml IV ONE (08:31)
--- NOTE | 2022-09-12 08:43 | CT Scan Report ---
CT head/brain wo con CLINICAL HISTORY: AMS earlier Technique: Contiguous axial CT images of the head were acquired from the base of the skull to the isamar brooks without intravenous contrast administration. Images were viewed in brain, subdural and bone [facility] . Automated dose lowering techniques and/or adjustment according to patient size were utilized for this exam. Comparison: Comparison is made to CT head 01/20/2019 Findings: Areas of decreased attenuation are present in the periventricular and subcortical white matter bilate rally consistent with small vessel ischemic disease. Generalized cerebral atrophy with commensurate e nlargement of the ventricles, sulci, and cisterns is also present. There is no acute intracranial hem orrhage or evidence of acute territorial infarction. No shift of the midline structures, mass effect, or extra-axial abnormalities are shown. Atherosclerotic calcifications are present in the intracran ial segments of the internal carotid arteries. Calcifications of the falx noted. Imaged portions of the paranasal sinuses and mastoid air cells are clear. The orbits appear normal. There are no acute fractures of the calvaria or scalp swelling. Impression: No acute intracranial hemorrhage, no evidence of acute territorial infarction or other acute intracra nial disease process. ACT 112: Negative or not required by law. Electronically signed by: Lele Sloan M.D. 09/12/2022 8:41 AM
--- NOTE | 2022-09-12 08:54 | CT Scan Report ---
CT chest diagnostic w con CLINICAL HISTORY: sepsis TECHNIQUE: Multidetector row helical CT of the chest was performed with intravenous contrast. Coronal and sagittal reformations were obtained. Automated dose lowering techniques and/or adjustment accord ing to patient size were utilized for this exam. CT DOSE: 4978.51 mGy.cm Comparison: Comparison is made to CT chest 09/08/2022 FINDINGS: Lungs and pleura: Mild atelectasis is seen. A few pulmonary nodules measure up to 5 mm (series 8 imag es 60 and 68). Stable 12 mm nodule in the left upper lobe (image 60). Heart and pericardium: Heart size is normal. No pericardial effusion. Vessels: Moderate atherosclerotic changes in the aorta and coronary arteries. The ascending aorta collins sures up to 47 mm. Mediastinum and tala: Unremarkable. Chest wall and lower neck: Unremarkable. Abdomen: For findings below the diaphragm, please refer to CT of the abdomen dated the same. Bones: Unremarkable. IMPRESSION: Stable pulmonary nodules as above. ACT 112: Negative or not required by law. Electronically signed by: Lele Sloan M.D. 09/12/2022 8:52 AM
--- NOTE | 2022-09-12 09:02 | CT Scan Report ---
CT abd pelvis IV con only CLINICAL HISTORY: sepsis, groin swelling TECHNIQUE: Helical axial images of the abdomen and pelvis were obtained and displayed. Automated dose lowering techniques and/or adjustment according to patient size were utilized for this exam. This e xam was performed with intravenous contrast. COMPARISON: Comparison is made to CT abdomen pelvis 01/03/2021 FINDINGS: Exam is limited by patient body habitus. Lower chest: Bibasilar atelectasis versus scarring is seen. Liver: Unremarkable. No focal lesions are seen. Gallbladder and biliary tree: No calcified gallstones. Normal caliber wall. No intra- or extrahepatic biliary ductal dilation. Pancreas: Unremarkable, no focal lesions. Spleen: Unremarkable. Adrenals: Unremarkable. Kidneys and ureters: Renal cysts are seen. Bladder: Diffuse homogeneous wall thickening is seen in an underdistended bladder. Reproductive organs: Prostatomegaly is seen. Bowel: Diverticulosis is seen without diverticulitis. The appendix is normal. Lymph nodes Retroperitoneal: Subcentimeter lymph nodes are noted. Pelvic: Subcentimeter lymph nodes are noted. Mesenteric: Unremarkable. Peritoneum: Minimal soft tissue and fatty stranding is noted. Vessels: Atherosclerotic calcifications are seen. Abdominal wall: Unremarkable. 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 Degenerative changes are seen in the spine. IMPRESSION: 1. Diffuse thickening of the bladder wall is nonspecific and may be secondary to underdistention, ho wever correlation with urinalysis is recommended to exclude UTI. 2. Redemonstration of is seen mesentery which is nonspecific. ACT 112: Negative or not required by law. Electronically signed by: Lele Sloan M.D. 09/12/2022 8:59 AM
--- NOTE | 2022-09-12 09:25 | XRay Report ---
XR chest 1V portable CLINICAL HISTORY: Sepsis TECHNIQUE: Single frontal radiograph of the chest was obtained. Comparison: Comparison is made to chest radiograph 09/17/2018 FINDINGS: Exam is limited by underpenetration. The cardiomediastinal silhouette is normal. Lungs are underinfla [place] and right lower lung airspace opacity is seen. No evidence of pleural effusion or pneumothorax. IMPRESSION: Right lower lobe atelectasis without evidence of acute abnormality. ACT 112: Negative or not required by law. Electronically signed by: Lele Sloan M.D. 09/12/2022 9:23 AM
--- NOTE | 2022-09-12 10:02 | History & Physical Report ---
Date of Service September 12, 2022 Assessment & Plan (1) Sepsis: Plan: -Admit to med/tele on cont pulse oximetry -Currently stable on his baseline 3L NC and hemodynamically stable -At this time his source appears to be his UTI but need to continue his workup of testicular pain as well -Significant leukocytosis with left shift, no signs of consolidation on CXR or CT Chest, no GI symptoms, no signs of wounds of skin infections -UA appears infected -Lactate WNL -S/P one dose of zosyn and 500 mL NSS in the ED -Will continue with zosyn for now as he already tolerated a dose in the ED -Follow blood and urine cultures -SQ lovenox for DVT PPX -HH diet with 2L fluid restriction -AM CBC, CMP, Mag, PT/INR (2) UTI (urinary tract infection): Plan: -Ua appears infected -No previous history of resistant organisms in our system -Continue zosyn for now, tailor abx to urine and blood cultures -Will have nursing staff obtain bladder scan and PVR to monitor for retention (3) AMS (altered mental status): Plan: -Resolved -Patient is alert and completely oriented -Patient's daughter confirms he is back to his baseline mental status -Likely due to acute illness -Continue to monitor (4) Elevated troponin: Plan: -Initial high sen trop elevated at 30 -Patient is without chest pain or acute ST segment or T-wave changes on ECG -Likely due to demand from sepsis -Will repeat a STAT repeat trop on admission, continue to monitor on tele (5) Testicle pain: Plan: -Patient started to develop right scrotal/testicular pain approximately 3 days ago -Denies any perineal pain or other symptoms to suggest acute bacterial prostatitis at this time -Procal WNL and patient is not toxic -Right testicle appears swollen and tender on exam -Will obtain STAT scrotal/testicular US for further evaluation (6) Chronic respiratory failure with hypoxia: Plan: -Currently stable on his baseline 3L NC at the time of the admission -Was likely more hypoxic this am due to lethargy and hx of ADILSON -No signs of PNA or significant fluid in his lungs -Will hold his Breo Ellipta and switch to Budesonide and formoterol nebs while admitted -PRN DuoNebs for SOB -Continue 3L NC and titrate O2 to keep SpO2 between 88-92% (7) Cerebrovascular small vessel disease: Plan: -Continue aspirin (8) Hypertension: Plan: -Stable -Will continue his BID carvedilol -Hold losartan and diltiazem for now to prevent hypotension with sepsis (9) Diastolic congestive heart failure: Plan: -Examines euvolemic -Normally takes 180 mg PO lasix daily -Will give him 40 mg IV lasix this afternoon to prevent volume overload with IV fluids in the ED -Monitor BP and volume status tomorrow and adjust diuretics as needed (10) Hypothyroidism: Plan: -Continue levothyroxine (11) Obstructive sleep apnea: Plan: -Patient typically sleeps from 2am-11am per his daughter -Does where CPAP when he sleeps, other daughter is bringing in CPAP machine now -Communication placed and spoke to nursing staff about having patient wear CPAP while sleeping during the day (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 Sotelo at the time of the admission History of Present Illness Chief Complaint: AMS/letheragy Primary Care Provider: DO Jenna Delgadone is a 76 year old male with a PMH significant for restrictive lung disease, chronic hypoxic respiratory failure on 3L NC baseline, morbid obesity, ADILSON on HS CPAP, pulmonary, elevated right hemidiaphragm, HTN, cerebellar stroke, hypothyroidism, HFpEF, BPH, and Thoracic aortic aneurysm who presented to the [facility] ED on 09/12 via EMS due to AMS/lethargy. In the ED the patient was noted to be stable on 5L NC and otherwise stable. Labs were significant for a leukocytosis of 18 with left shift of 16, hgb of 12.6 (down from 13.9 as of 06/08), HCT of 37, lymphocyte count of 0.62, sodium of 134, initial high sen trop of 30, BNP of 105 (up from 69 as of 10/19, procal suggestive of UTI, and covid19/RSV/Influenza negative. CT head was read as No acute intracranial hemorrhage, no evidence of acute territorial infarction or other acute intracranial disease process.. Chest xray was read as Right lower lobe atelectasis without evidence of acute abnormality.. CT of the chest w con was read as Stable pulmonary nodules as above.. And CT of the abd/pelvis w/IV con was read as 1. Diffuse thickening of the bladder wall is nonspecific and may be secondary to underdistention, however correlation with urinalysis is recommended to exclude UTI. 2. Re-demonstration of is seen mesentery which is nonspecific.. Prior to admission the patient was given a dose of zosyn, and 500 mL NSS. At the time of the exam the patient was sleeping comfortably in bed with his Daughter/POA sitting bedside, history was obtained from both. His Daughter states that the patient was weaker than normal starting yesterday. He was requiring his cane to ambulate in his home and did not have a much energy as normal. This am the patient was reportedly very fatigued/lethargic and confused. His daughter states that the patient had no focal neurologic defects but was just very lethargic and confused. She confirms that he is back to his baseline mental status at the time of the exam. The patient states that he started to develop right testicle/scrotal pain approximately 3 days ago. He denies urinary symptoms such as dysuria, hematuria, and increased urinary frequency. His daughter states that EMS took his temperature and it was 100.4F on arrival. The patient denies chest pain, increased SOB than baseline, caught, abd pain, nausea, vomiting, diarrhea, constipation, melena, increased LE swelling and recent trauma. The patient denies having scrotal/testicle pain like this in the past. The patient is a full code and would want his daughter to make medical decisions for him if he could not make them himself. Please refer to Dr. Sotelo's attestation for any changes to the treatment plan Allergies Allergy/AdvReac Type Severity Reaction Status Date / Time ibuprofen Allergy Severe THROAT Verified 08/11/22 11:01 SWELLING Sulfa (Sulfonamide Allergy Severe Throat Verified 08/11/22 11:01 Antibiotics) tightness atenolol Allergy Mild throat Verified 08/11/22 11:01 swelling levofloxacin Allergy Unknown Unknown Verified 08/11/22 11:01 voltarin Allergy Mild Uncoded 08/11/22 11:01 Home Medications Medication Instructions Recorded Confirmed Type aspirin 81 mg tablet,delayed 81 mg PO HS 12/24/17 09/12/22 History release (Agapito Low Dose Aspirin) kpvrvjcx-[id number] acid 0.4 1 tab PO QAM 12/24/17 09/12/22 History mg-lycopene 300 mcg-lutein 250 mcg tablet (Centrum Silver) naproxen sodium 220 mg capsule 220 mg PO DAILY 12/24/17 09/12/22 History (Aleve) omega 8-qlm-una-fish oil 1,000 mg 1,000 mg PO QAM 12/24/17 09/12/22 History (120 mg-180 mg) capsule (Fish Oil) vit A 300 mcg-C 200 mg-E 27 1 tab PO DAILY 12/24/17 09/12/22 History mg-lutein 2 mg and minerals tablet (Vision Formula (with lutein)) CPAP Machine #1 ea 09/11/19 08/11/22 Rx CPAP Supplies #1 ea 09/19/20 08/11/22 Rx cetirizine 10 mg tablet (Zyrtec) 10 mg PO QAM 01/03/21 09/12/22 History glucosamine-chondroitin 250 mg-200 2 tab PO BID 01/03/21 09/12/22 History mg tablet (Osteo Bi-Flex) capsaicin 0.033 % topical cream 1 applic topical QID PRN pain 06/23/21 09/12/22 Rx (Zostrix) #56.6 grams olopatadine 0.1 % eye drops See Rx Instructions .Route 09/21/21 07/07/22 Rx .COMPLEX #5 mL fluticasone propionate 50 2 spray intranasal QAM 09/28/21 09/12/22 History mcg/actuation nasal spray,suspension alfuzosin 10 mg tablet,extended 10 mg PO DAILY #90 tabs 02/26/22 09/12/22 Rx release 24 hr (Uroxatral) fluticasone furoate 100 1 inh inhalation QAM #60 ea 03/10/22 09/12/22 Rx mcg-vilanterol 25 mcg/dose inhalation powder furosemide 40 mg tablet See Rx Instructions .Route 04/05/22 09/12/22 Rx .COMPLEX #90 tabs rosuvastatin 5 mg tablet 5 mg PO .COMPLEX #90 tabs 04/05/22 09/12/22 Rx carvedilol 3.125 mg tablet 3.125 mg PO BID #180 tabs 06/09/22 09/12/22 Rx levothyroxine 50 mcg tablet 50 mcg PO QAM #90 tabs 08/02/22 09/12/22 Rx coenzyme Q10 100 mg capsule 200 mg PO QAM 08/11/22 09/12/22 History (CoQ-10) diclofenac sodium 1 % topical gel 2 g topical QID PRN Pain #100 grams 08/11/22 09/12/22 Rx (Voltaren Arthritis Pain) dutasteride 0.5 mg capsule 0.5 mg PO DAILY #90 caps 08/13/22 09/12/22 Rx (Avodart) furosemide 80 mg tablet See Rx Instructions .Route 09/02/22 09/12/22 Rx .COMPLEX #90 tabs Vitamin B12 1 tab PO DAILY 09/12/22 09/12/22 History allopurinol 300 mg tablet 300 mg PO DAILY 09/12/22 09/12/22 History cholecalciferol (vitamin D3) 125 5,000 unit PO DAILY 09/12/22 09/12/22 History mcg (5,000 unit) tablet (Vitamin D3) diltiazem HCl 360 mg capsule,24 360 mg PO DAILY 09/12/22 09/12/22 History hr,extended release docusate sodium 100 mg capsule 100 mg PO BID 09/12/22 09/12/22 History (Stool Softener) losartan 100 mg tablet 100 mg PO DAILY 09/12/22 09/12/22 History potassium chloride 20 mEq 40 meq PO DAILY 09/12/22 09/12/22 History tablet,extended release(part/cryst) Past Med/Surg History Medical History Arthritis, multiple joint involvement BPH with obstruction/lower urinary tract symptoms Cerebellar stroke Cerebrovascular small vessel disease Diastolic congestive heart failure Diastolic dysfunction DJD (degenerative joint disease) of hip Dyslipidemia Elevated prostate specific antigen (PSA) Enlarged aorta Gout High blood pressure Hyperglycemia Hypothyroidism Internal hemorrhoids Laryngopharyngeal reflux Lumbar radiculopathy Multiple pulmonary nodules Nephrolithiasis Numbness of tongue Obstructive sleep apnea Peripheral edema Polyneuropathy Pulmonary hypertension Restless legs syndrome Shortness of breath on exertion SNHL (sensorineural hearing loss) Spinal stenosis Thoracic aortic aneurysm Urinary retention Venous ulcers of both lower extremities Surgical History H/O knee surgery History of ankle surgery History of carpal tunnel surgery History of colonoscopy History of hip replacement Status post left foot surgery Family History Father Hypertension Heart disease Myocardial infarction Mother Heart disease Other Allergies Hearing loss Nephrolithiasis Denies family history of Ovarian cancer Prostate cancer Diabetes Breast cancer Lung cancer Colorectal cancer Stroke Social History Smoking Status: Former smoker Tobacco Type: Cigarettes Age Started Using Tobacco: 16; Age Quit Using Tobacco: 62; packs per day: 1; Cigarettes Per Day: 1pk / day; Second Hand Exposure: No; Do You Dip or Chew Tobacco: Yes; Hx Alcohol Use: No Hx Substance Use: No Preferred Language: Sami Communication Ability: Effective Visual Impairment: Limited Hearing Ability: Use of Hearing Aid Quill Skinner Required: No Beliefs That Will Affect Care: None marital status: Current Living Situation: Spouse current occupational status: retired How many Children do You have: 2 Feels Safe at Home: Yes Childhood Exposure to Second-Hand Smoke: Yes Diet: regular caffeine: Yes Dental Care, Regularly: Yes Physical Activity Frequency: Does not Exercise Seatbelt Use: always Sunscreen Use: Yes Gender Identity: Male Assistive Devices: Cane, CPAP, Denture - Upper, Hearing Aid - Bilateral, Oxygen - at Night and Oxygen - Continuous Physical Exam Physical Exam: Physical Exam: General: In no acute distress, stated age, morbidly obese, ill but non-toxic appearing HEENT: Normocephalic, atraumatic, no scleral icterus, pupils around round, symmetrical, and reactive to light, NC in place, moist mucus membranes, trachea midline, no thyromegaly Chest/Pulm: No respiratory distress, symmetrical chest expansion, distant lung sounds due to body habitus Cardiac: RRR, no murmurs noted Abdomen: Negative for ascites and bruising, normoactive bowel sounds, soft, non-tender to palpation throughout : Patient with swelling of the scrotum, no tenderness to palpation of the left testicle, significant tenderness to palpation of the right testicle, no relief of pain with elevation of the testicles Musculoskeletal: Symmetrical and without signs of acute trauma, upper and lower extremities with full ROM, no atrophy, spasticity, or flaccidity Extremities: Radial, dorsalis pedis, and posterior tibial pulses are intact and symmetrical, no edema noted in the BL LE's Skin: Warm, dry, no rashes , lesions, or scars noted Neuro: Alert and oriented to person, place, month, year, and president, no focal defects, CN II-XII tested and intact, no tremors noted Psych: No acute distress, calm and cooperative during the exam Results & Data Results & Data Vital Signs (Past 12 Hours) Vital Signs Temp Pulse Pulse Resp BP BP Pulse Ox 09/12/22 09:30 82 20 129/68 96 09/12/22 09:10 84 09/12/22 08:00 86 22 115/54 L 96 09/12/22 07:27 87 20 100/77 95 09/12/22 05:27 86 09/12/22 05:29 37.4 C 84 22 122/79 95 09/12/22 05:15 94 09/12/22 05:15 O2 Del Method O2 Flow Rate 09/12/22 09:30 Nasal Cannula 5 09/12/22 09:10 09/12/22 08:00 Nasal Cannula 5 09/12/22 07:27 Nasal Cannula 5 09/12/22 05:27 09/12/22 05:29 Nasal Cannula 5 09/12/22 05:15 Nasal Cannula 5 09/12/22 05:15 Nasal Cannula 5 Laboratory Results Abnormal lab results 09/12/22 09/12/22 09/12/22 Range/Units 05:36 05:36 07:07 WBC 18.80 H (4.8-10.8) K/ul RBC 4.30 L (4.70-6.10) M/uL Hgb 12.6 L (14.0-18.0) g/dl Hct 37.6 L (42.0-52.0) % Neut # (Auto) 16.60 H (1.40-6.50) K/uL Lymph # (Auto) 0.62 L (1.2-3.4) K/uL [place] # (Auto) 1.33 H (0.11-0.59) K/uL Sodium 134 L (136-145) mmol/L BUN/Creatinine Ratio 20.8 H (10-20) Glucose 129 H (70-99(Fasting)) mg/dl Troponin I High Sens 30.4 H (0-20) pg/ml B-Natriuretic Peptide 105 H (0-100) pg/ml Urine Appearance (Clear) Urine Protein (Negative) Urine Ketones (Negative) Urine Nitrite (Negative) Ur Leukocyte Esterase (Negative) Urine WBC (Auto) (0-5) /hpf U Hyaline Cast (Auto) (0-5) /lpf U Epithel Cells (Auto) (0-5) /lpf Urine Bacteria (Auto) (Negative) 09/12/22 Range/Units 07:19 WBC (4.8-10.8) K/ul RBC (4.70-6.10) M/uL Hgb (14.0-18.0) g/dl Hct (42.0-52.0) % Neut # (Auto) (1.40-6.50) K/uL Lymph # (Auto) (1.2-3.4) K/uL [place] # (Auto) (0.11-0.59) K/uL Sodium (136-145) mmol/L BUN/Creatinine Ratio (10-20) Glucose (70-99(Fasting)) mg/dl Troponin I High Sens (0-20) pg/ml B-Natriuretic Peptide (0-100) pg/ml Urine Appearance Cloudy A (Clear) Urine Protein 1+ H (Negative) Urine Ketones Trace H (Negative) Urine Nitrite Positive A (Negative) Ur Leukocyte Esterase 2+ H (Negative) Urine WBC (Auto) >30 H (0-5) /hpf U Hyaline Cast (Auto) 5-10 H (0-5) /lpf U Epithel Cells (Auto) 5-10 H (0-5) /lpf Urine Bacteria (Auto) 4+ H (Negative) Diagnostic Findings Chest X-Ray 09/12/22 06:32 XR chest 1V portable CLINICAL HISTORY: Sepsis TECHNIQUE: Single frontal radiograph of the chest was obtained. Comparison: Comparison is made to chest radiograph 09/17/2018 FINDINGS: Exam is limited by underpenetration. The cardiomediastinal silhouette is normal. Lungs are underinflated and right lower lung airspace opacity is seen. No evidence of pleural effusion or pneumothorax. IMPRESSION: Right lower lobe atelectasis without evidence of acute abnormality. ACT 112: Negative or not required by law. Electronically signed by: Lele Sloan M.D. 09/12/2022 9:23 AM Abdomen/Pelvis CT 09/12/22 07:15 CT abd pelvis IV con only CLINICAL HISTORY: sepsis, groin swelling TECHNIQUE: Helical axial images of the abdomen and pelvis were obtained and displayed. Automated dose lowering techniques and/or adjustment according to patient size were utilized for this exam. This exam was performed with intravenous contrast. COMPARISON: Comparison is made to CT abdomen pelvis 01/03/2021 FINDINGS: Exam is limited by patient body habitus. Lower chest: Bibasilar atelectasis versus scarring is seen. Liver: Unremarkable. No focal lesions are seen. Gallbladder and biliary tree: No calcified gallstones. Normal caliber wall. No i ntra- or extrahepatic biliary ductal dilation. Pancreas: Unremarkable, no focal lesions. Spleen: Unremarkable. Adrenals: Unremarkable. Kidneys and ureters: Renal cysts are seen. Bladder: Diffuse homogeneous wall thickening is seen in an underdistended bladder. Reproductive organs: Prostatomegaly is seen. Bowel: Diverticulosis is seen without diverticulitis. The appendix is normal. Lymph nodes Retroperitoneal: Subcentimeter lymph nodes are noted. Pelvic: Subcentimeter lymph nodes are noted. Mesenteric: Unremarkable. Peritoneum: Minimal soft tissue and fatty stranding is noted. Vessels: Atherosclerotic calcifications are seen. Abdominal wall: Unremarkable. 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 Degenerative changes are seen in the spine. IMPRESSION: 1. Diffuse thickening of the bladder wall is nonspecific and may be secondary to underdistention, however correlation with urinalysis is recommended to exclude UTI. 2. Redemonstration of is seen mesentery which is nonspecific. ACT 112: Negative or not required by law. Electronically signed by: Lele Sloan M.D. 09/12/2022 8:[address] 09/12/22 07:15 CT head/brain wo con CLINICAL HISTORY: AMS earlier Technique: Contiguous axial CT images of the head were acquired from the base of the skull to the vertex without intravenous contrast administration. Images were viewed in brain, subdural and bone windows. Automated dose lowering techniques and/or adjustment according to patient size were utilized for this exam. Comparison: Comparison is made to CT head 01/20/2019 Findings: Areas of decreased attenuation are present in the periventricular and subcortical white matter bilaterally consistent with small vessel ischemic disease. Generalized cerebral atrophy with commensurate enlargement of the ventricles, sulci, and cisterns is also present. There is no acute intracranial hemorrhage or evidence of acute territorial infarction. No shift of the midline structures, mass effect, or extra-axial abnormalities are shown. Atherosclerotic calcifications are present in the intracranial segments of the internal carotid arteries. Calcifications of the falx noted. Imaged portions of the paranasal sinuses and mastoid air cells are clear. The orbits appear normal. There are no acute fractures of the calvaria or scalp swelling. Impression: No acute intracranial hemorrhage, no evidence of acute territorial infarction or other acute intracranial disease process. ACT 112: Negative or not required by law. Electronically signed by: Lele Sloan M.D. 09/12/2022 8:[address] 09/12/22 07:20 CT chest diagnostic w con CLINICAL HISTORY: sepsis TECHNIQUE: Multidetector row helical CT of the chest was performed with intravenous contrast. Coronal and sagittal reformations were obtained. Automated dose lowering techniques and/or adjustment according to patient size were utilized for this exam. CT DOSE: 4978.51 mGy.cm Comparison: Comparison is made to CT chest 09/08/2022 FINDINGS: Lungs and pleura: Mild atelectasis is seen. A few pulmonary nodules measure up to 5 mm (series 8 images 60 and 68). Stable 12 mm nodule in the left upper lobe (image 60). Heart and pericardium: Heart size is normal. No pericardial effusion. Vessels: Moderate atherosclerotic changes in the aorta and coronary arteries. The ascending aorta measures up to 47 mm. Mediastinum and tala: Unremarkable. Chest wall and lower neck: Unremarkable. Abdomen: For findings below the diaphragm, please refer to CT of the abdomen dated the same. Bones: Unremarkable. IMPRESSION: Stable pulmonary nodules as above. ACT 112: Negative or not required by law. Electronically signed by: Lele Sloan M.D. 09/12/2022 8:52 AM ECG Additional Comments: Sinus rhythm with 1st degree A-V block Left anterior fascicular block Abnormal E CG When compared with ECG of 24-DEC-2017 22:36, [place] interval has increased Left anterior fascicular block is now Present Code Status & VTE Plan Code Status Full code VTE Prophylaxis Plan VTE Prophylaxis will be ordered: Yes Supervising Physician Co-Signing Physician Notes I personally saw and examined the patient. I verified all godoy points and agree with Asad Henry PA-C with the following exceptions and/or additions: 76 year old male presents to the ER with right testicular swelling, generalized weakness, confusion. Started 3 days ago. Already feeling significantly improved when I saw him in 2W from admission. O/E Morbidly obese, HS RRR, no murmurs, Chest CTAB, Abdo SNT, no CVA tenderness A/P Sepsis - lactate 1.3, no need for fluid resuscitation, Lasix appropriately given at reduction in his usual dosing to avoid hypotension but also pulmonary edema. Suspected source UTI vs. prostate vs. epididymitis. IV Zosyn. Follow up blood and urine cultures. UTI, suspected prostatitis and epididymitis - would favor 4 weeks of antibiotics given epididymitis and elevated in PSA, consult urology PG Care Time/CCT Total # of Minutes Spent Total Time Spent with Patient: Total time spent is greater than 50% in coordination of care (as documented) at patient's floor/unit and/or counseling patient: Coding [place] [address] INT INP/OBS CARE 3/75MIN Patient Type Established Medical Decision Making High Complexity Diagnoses Sepsis A41.9 UTI (urinary tract infection) N39.0 AMS (altered mental status) R41.82 Elevated troponin R77.8 Testicle pain N50.819 Chronic respiratory failure with hypoxia J96.11 Cerebrovascular small vessel disease I67.9 Hypertension I10 Hypertension type: essential hypertension Diastolic congestive heart failure I50.32 Heart failure chronicity: chronic Hypothyroidism E03.9 Obstructive sleep apnea G47.33 BPH with obstruction/lower urinary tract symptoms N40.1; N13.8 Acute epididymitis N45.1 Acute bacterial prostatitis N41.0 (8) Hypertension Hypertension type: essential hypertension Qualified Code(s): I10 - Essential (primary) hypertension (9) Diastolic congestive heart failure Heart failure chronicity: chronic Qualified Code(s): I50.32 - Chronic diastolic (congestive) heart failure
[2022-09-12] MEDS ORDERED: BUDESONIDE 0.5 MG/2 ML VIAL (PULMICORT) NEB STA (10:40)
[2022-09-12] MEDS ORDERED: FORMOTEROL 20 MCG/2 ML VIAL NEB STA (10:40)
[2022-09-12] MEDS ORDERED: ENOXAPARIN INJ 40 MG/0.4 ML SYR SQ SCH (11:39)
[2022-09-12] MEDS ORDERED: ACETAMINOPHEN 325 MG TAB PO PRN (11:39)
--- NOTE | 2022-09-12 12:19 | Ultrasound Report ---
US scrotum/testicle CLINICAL HISTORY: sepsis, right testicle/scrotal pain TECHNIQUE: Real-time sonographic images of the scrotal contents were obtained. Comparison: Comparison is made to scrotal ultrasound 10/10/2019 FINDINGS: The right testicle measures 4.5 x 3.1 x 3.2 cm. The left testicle measures 4.0 x 3.0 x 3.2 cm. Dopple r flow is seen bilaterally, right greater than left. Bilateral testicular cysts are seen. Hyperemia o f the right epididymis is seen. Large septated right hydrocele is seen, there is also a large left hy drocele. No varicoceles were seen. IMPRESSION: 1. Increased vascularity compatible with right epididymo-orchitis. 2. Large bilateral hydroceles. 3. Incidental note of bilateral stable testicular cysts. ACT 112: Negative or not required by law. Electronically signed by: Lele Sloan M.D. 09/12/2022 12:17 PM
[2022-09-12] MEDS: TAMSULOSIN HCL 0.4 MG CAP PO SCH (12:37)
[2022-09-12] MEDS: PIPERACILLIN/TAZOBACTAM 4.5 GM in DEXTROSE 5% 100 ML IV SCH ×2 (12:38→20:33)
--- NOTE | 2022-09-12 14:17 | Urology Consultation ---
Date of Consultation September 12, 2022 Assessment & Plan (1) Sepsis: Sepsis appears to be of urinary origin. Based on his urinalysis he likely has a bacterial cystitis with associated epididymoorchitis. I do not appreciate anything to suggest an underlying abscess or Jean's gangrene. I do not think he requires surgical intervention at this time, and he will be a high risk surgical candidate if that is required. I agree with treatment with broad- spectrum antibiotics, following culture data and narrowing as sensitivities become available. Urology will continue to follow along and monitor for any changes. (2) Testicle pain: Testicular pain likely represents epididymoorchitis. Agree with treatment with broad-spectrum antibiotics and adjust as culture data becomes available. (3) BPH with obstruction/lower urinary tract symptoms: Known history of BPH and lower urinary tract symptoms. Would recommend continuing alfuzosin and dutasteride. (4) Acute UTI (urinary tract infection): History of Present Illness Reason for Consultation: Sepsis, epididymoorchitis, scrotal pain Attending Physician: Malik Sotelo MD History of Present Illness This is a 76-year-old male with history of CAD, CHF, Prior CVA followed by urology for screening PSA as well as BPH/lower urinary tract symptoms. He presented to the emergency department by ambulance on 09/12/2022 after a syncopal event at home associated with worsening fatigue and urinary symptoms over the last couple days. Sepsis work-up was initiated in the emergency department and he was started on IV antibiotics. Work-up in the ED was notable for leukocytosis (WBC 18.8). He was mildly anemic with hemoglobin 12.6. Creatinine was normal at 0.77. Lactate was normal at 1.3. BNP was slightly elevated at 105. Urinalysis was notable for positive nitrites, 2+ leukocyte esterase and 4+ bacteria, overall concerning for infection. Blood and urine cultures are pending. A CT scan of the abdomen and pelvis was performed. I independently reviewed these images. Both kidneys are in normal position with no hydronephrosis and no stones. There are some cysts on the kidneys. His bladder is decompressed and his prostate is mildly enlarged. He additionally had a scrotal ultrasound performed this demonstrated hyperemia of the right epididymis as well as a septated hydrocele on the right side. There was some fluid around the left testicle as well. Allergies Allergy/AdvReac Type Severity Reaction Status Date / Time ibuprofen Allergy Severe THROAT Verified 08/11/22 11:01 SWELLING Sulfa (Sulfonamide Allergy Severe Throat Verified 08/11/22 11:01 Antibiotics) tightness atenolol Allergy Mild throat Verified 08/11/22 11:01 swelling levofloxacin Allergy Unknown Unknown Verified 08/11/22 11:01 voltarin Allergy Mild Uncoded 08/11/22 11:01 Home Medications Medication Instructions Recorded Confirmed Type aspirin 81 mg tablet,delayed 81 mg PO HS 12/24/17 09/12/22 History release (Agapito Low Dose Aspirin) ugyxydcy-svx-qhoab acid 0.4 1 tab PO QAM 12/24/17 09/12/22 History mg-lycopene 300 mcg-lutein 250 mcg tablet (Centrum Silver) naproxen sodium 220 mg capsule 220 mg PO DAILY 12/24/17 09/12/22 History (Aleve) omega 7-ciu-kwg-fish oil 1,000 mg 1,000 mg PO QAM 12/24/17 09/12/22 History (120 mg-180 mg) capsule (Fish Oil) vit A 300 mcg-C 200 mg-E 27 1 tab PO DAILY 12/24/17 09/12/22 History mg-lutein 2 mg and minerals tablet (Vision Formula (with lutein)) CPAP Machine #1 ea 09/11/19 08/11/22 Rx CPAP Supplies #1 ea 09/19/20 08/11/22 Rx cetirizine 10 mg tablet (Zyrtec) 10 mg PO QAM 01/03/21 09/12/22 History glucosamine-chondroitin 250 mg-200 2 tab PO BID 01/03/21 09/12/22 History mg tablet (Osteo Bi-Flex) capsaicin 0.033 % topical cream 1 applic topical QID PRN pain 06/23/21 09/12/22 Rx (Zostrix) #56.6 grams olopatadine 0.1 % eye drops See Rx Instructions .Route 09/21/21 07/07/22 Rx .COMPLEX #5 mL fluticasone propionate 50 2 spray intranasal QAM 09/28/21 09/12/22 History mcg/actuation nasal spray,suspension alfuzosin 10 mg tablet,extended 10 mg PO DAILY #90 tabs 02/26/22 09/12/22 Rx release 24 hr (Uroxatral) fluticasone furoate 100 1 inh inhalation QAM #60 ea 03/10/22 09/12/22 Rx mcg-vilanterol 25 mcg/dose inhalation powder furosemide 40 mg tablet See Rx Instructions .Route 04/05/22 09/12/22 Rx .COMPLEX #90 tabs rosuvastatin 5 mg tablet 5 mg PO .COMPLEX #90 tabs 04/05/22 09/12/22 Rx carvedilol 3.125 mg tablet 3.125 mg PO BID #180 tabs 06/09/22 09/12/22 Rx levothyroxine 50 mcg tablet 50 mcg PO QAM #90 tabs 08/02/22 09/12/22 Rx coenzyme Q10 100 mg capsule 200 mg PO QAM 08/11/22 09/12/22 History (CoQ-10) diclofenac sodium 1 % topical gel 2 g topical QID PRN Pain #100 grams 08/11/22 09/12/22 Rx (Voltaren Arthritis Pain) dutasteride 0.5 mg capsule 0.5 mg PO DAILY #90 caps 08/13/22 09/12/22 Rx (Avodart) furosemide 80 mg tablet See Rx Instructions .Route 09/02/22 09/12/22 Rx .COMPLEX #90 tabs Vitamin B12 1 tab PO DAILY 09/12/22 09/12/22 History allopurinol 300 mg tablet 300 mg PO DAILY 09/12/22 09/12/22 History cholecalciferol (vitamin D3) 125 5,000 unit PO DAILY 09/12/22 09/12/22 History mcg (5,000 unit) tablet (Vitamin D3) diltiazem HCl 360 mg capsule,24 360 mg PO DAILY 09/12/22 09/12/22 History hr,extended release docusate sodium 100 mg capsule 100 mg PO BID 09/12/22 09/12/22 History (Stool Softener) losartan 100 mg tablet 100 mg PO DAILY 09/12/22 09/12/22 History potassium chloride 20 mEq 40 meq PO DAILY 09/12/22 09/12/22 History tablet,extended release(part/cryst) Patient History Medical History Arthritis, multiple joint involvement BPH with obstruction/lower urinary tract symptoms Cerebellar stroke Cerebrovascular small vessel disease Diastolic congestive heart failure Diastolic dysfunction DJD (degenerative joint disease) of hip Dyslipidemia Elevated prostate specific antigen (PSA) Enlarged aorta Gout High blood pressure Hyperglycemia Hypothyroidism Internal hemorrhoids Laryngopharyngeal reflux Lumbar radiculopathy Multiple pulmonary nodules Nephrolithiasis Numbness of tongue Obstructive sleep apnea Peripheral edema Polyneuropathy Pulmonary hypertension Restless legs syndrome Shortness of breath on exertion SNHL (sensorineural hearing loss) Spinal stenosis Thoracic aortic aneurysm Urinary retention Venous ulcers of both lower extremities Surgical History H/O knee surgery History of ankle surgery History of carpal tunnel surgery History of colonoscopy History of hip replacement Status post left foot surgery Family History Father Hypertension Heart disease Myocardial infarction Mother Heart disease Other Allergies Hearing loss Nephrolithiasis Denies family history of Ovarian cancer Prostate cancer Diabetes Breast cancer Lung cancer Colorectal cancer Stroke Social History Smoking Status: Former smoker Tobacco Type: Cigarettes Age Started Using Tobacco: 16; Age Quit Using Tobacco: 62; packs per day: 1; Cigarettes Per Day: 1pk / day; Second Hand Exposure: No; Do You Dip or Chew Tobacco: Yes; Hx Alcohol Use: No Hx Substance Use: No Preferred Language: Armenian Communication Ability: Effective Visual Impairment: Limited Hearing Ability: Use of Hearing Aid Inbound Ing[employer]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 Beliefs That Will Affect Care: None marital status: Current Living Situation: Spouse current occupational status: retired How many Children do You have: 2 Feels Safe at Home: Yes Safety Concerns: Feels Safe At This Time Childhood Exposure to Second-Hand Smoke: Yes Diet: regular caffeine: Yes Dental Care, Regularly: Yes Physical Activity Frequency: Does not Exercise Seatbelt Use: always Sunscreen Use: Yes Gender Identity: Male Assistive Devices: Cane, CPAP, Denture - Upper, Hearing Aid - Bilateral, Oxygen - at Night and Oxygen - Continuous Review of Systems Review of Systems: 12 point review of systems negative except for otherwise indicated. Respiratory: Shortness of breath Genitourinary: + as per Subjective / HPI Physical Exam Constitutional: well developed and + obese Eyes: + anicteric sclerae; pupils not irregular Respiratory: Breathing supplemental oxygen by nasal cannula Cardiovascular: well perfused Gastrointestinal (Abdomen): Inspection/Auscultation: abdomen normal to inspection (Protuberant) Musculoskeletal: Extremities: extremities normal to inspection Skin: normal turgor; no rashes and no lesions Neurologic: moves all extremities and awake Psychiatric: Orientation: alert and oriented x 3 Genitourinary: Penis with orthotopic meatus, no discharge or drainage. Scrotal swelling, firmer on the right compared with the left. He is also more tender on the right side, specifically focally over the right epididymis. There is no fluctuance. There is minimal erythema of the scrotal skin. There are no draining areas to suggest underlying abscess. No crepitus appreciated. No tenderness over the perineum. Results & Data Vital Signs (Past 12 Hours) Vital Signs Temp Pulse Pulse Resp BP BP Pulse Ox 09/12/22 12:11 91 H 6 L 09/12/22 11:30 85 25 H 93 09/12/22 11:30 126/76 09/12/22 11:00 81 32 H 95 09/12/22 11:00 112/67 09/12/22 10:32 127/58 L 09/12/22 10:32 88 18 96 09/12/22 10:30 89 30 H 92 09/12/22 10:00 83 36 H 95 09/12/22 10:00 111/78 09/12/22 09:31 84 37 H 95 09/12/22 09:31 129/68 09/12/22 09:30 86 24 95 09/12/22 09:01 85 31 H 96 09/12/22 09:01 120/65 09/12/22 09:00 84 31 H 95 09/12/22 08:30 89 19 09/12/22 08:01 115/54 L 09/12/22 08:01 87 36 H 93 09/12/22 08:00 86 25 H 96 09/12/22 07:30 85 36 H 96 09/12/22 07:23 84 33 H 96 09/12/22 07:23 100/77 09/12/22 07:00 84 20 96 09/12/22 06:30 83 19 97 09/12/22 06:00 84 27 H 94 09/12/22 05:30 85 28 H 95 09/12/22 05:21 86 25 H 92 09/12/22 11:22 85 25 H 95 09/12/22 11:00 83 18 112/67 95 09/12/22 11:02 96 09/12/22 10:32 85 22 127/58 L 94 09/12/22 10:00 79 20 111/78 95 09/12/22 09:30 82 20 129/68 96 09/12/22 09:10 84 09/12/22 08:00 86 22 115/54 L 96 09/12/22 07:27 87 20 100/77 95 09/12/22 05:27 86 09/12/22 05:29 37.4 C 84 22 122/79 95 09/12/22 05:15 94 09/12/22 05:15 O2 Del Method O2 Flow Rate 09/12/22 12:11 09/12/22 11:30 09/12/22 11:30 09/12/22 11:00 09/12/22 11:00 09/12/22 10:32 09/12/22 10:32 09/12/22 10:30 09/12/22 10:00 09/12/22 10:00 09/12/22 09:31 09/12/22 09:31 09/12/22 09:30 09/12/22 09:01 09/12/22 09:01 09/12/22 09:00 09/12/22 08:30 09/12/22 08:01 09/12/22 08:01 09/12/22 08:00 09/12/22 07:30 09/12/22 07:23 09/12/22 07:23 09/12/22 07:00 09/12/22 06:30 09/12/22 06:00 09/12/22 05:30 09/12/22 05:21 09/12/22 11:22 Nasal Cannula 3 09/12/22 11:00 Nasal Cannula 5 09/12/22 11:02 Nasal Cannula 5 09/12/22 10:32 Nasal Cannula 5 09/12/22 10:00 Nasal Cannula 5 09/12/22 09:30 Nasal Cannula 5 09/12/22 09:10 09/12/22 08:00 Nasal Cannula 5 09/12/22 07:27 Nasal Cannula 5 09/12/22 05:27 09/12/22 05:29 Nasal Cannula 5 09/12/22 05:15 Nasal Cannula 5 09/12/22 05:15 Nasal Cannula 5 PG Care Time/CCT Total # of Minutes Spent Total Time Spent with Patient: Total time spent is greater than 50% in coordination of care (as documented) at patient's floor/unit and/or counseling patient: Coding Level of Care Code 51019 INT INP/OBS CARE 2/55MIN Diagnoses Sepsis A41.9 Sepsis acute organ dysfunction status: without acute organ dysfunction Sepsis type: sepsis due to unspecified organism Testicle pain N50.819 BPH with obstruction/lower urinary tract symptoms N40.1; N13.8 Acute UTI (urinary tract infection) N39.0 (1) Sepsis Sepsis acute organ dysfunction status: without acute organ dysfunction Sepsis type: sepsis due to unspecified organism Qualified Code(s): A41.9 - Sepsis, unspecified organism
[2022-09-12] MEDS ORDERED: dilTIAZem HCL 180 MG CAPCR PO STA (14:41)
[2022-09-12] MEDS ORDERED: FUROSEMIDE 40 MG/4 ML VIAL IV ONE (15:00)
[2022-09-12] MEDS: allopurinoL 300 MG TAB PO SCH (16:36)
[2022-09-12] MEDS: BUDESONIDE 0.5 MG/2 ML VIAL (PULMICORT) NEB SCH (19:42)
[2022-09-12] MEDS: FORMOTEROL 20 MCG/2 ML VIAL NEB SCH (19:42)
[2022-09-12] MEDS: DOCUSATE SODIUM 100 MG CAP PO SCH (21:50)
[2022-09-12] MEDS: ASPIRIN 81 MG ECTAB PO SCH (21:51)
[2022-09-12] MEDS: carvediloL 3.125 MG TAB PO SCH (21:51)
[2022-09-12] MEDS: ENOXAPARIN INJ 40 MG/0.4 ML SYR SQ SCH (21:51)
[2022-09-13] MEDS: LEVOTHYROXINE SODIUM 50 MCG TABLET PO SCH (05:38)
[2022-09-13] MEDS: PIPERACILLIN/TAZOBACTAM 4.5 GM in DEXTROSE 5% 100 ML IV SCH ×3 (05:51→20:34)
--- NOTE | 2022-09-13 06:20 | Electrocardiogram Report ---
Test Reason : Blood Pressure : / mmHG Vent. Rate : 084 BPM Atrial Rate : 084 BPM P-R Int : 248 ms QRS Dur : 102 ms QT Int : 392 ms P-R-T Axes : 045 -46 016 degrees QTc Int : 463 ms Sinus rhythm with 1st degree A-V block Left anterior fascicular block Abnormal ECG When compared with ECG of 24-DEC-2017 22:36, MA interval has increased Left anterior fascicular block is now Present Confirmed by Paul Jay ([id number]) on 09/12/2022 12:41:05 PM Referred By: REFERRED SELF Confirmed By:Paul Jay
[2022-09-13] MEDS: FORMOTEROL 20 MCG/2 ML VIAL NEB SCH ×2 (07:28→19:21)
[2022-09-13] MEDS: BUDESONIDE 0.5 MG/2 ML VIAL (PULMICORT) NEB SCH ×2 (07:28→19:21)
[2022-09-13] MEDS: DOCUSATE SODIUM 100 MG CAP PO SCH ×2 (08:26→20:33)
[2022-09-13] MEDS: FINASTERIDE 5 MG TAB PO SCH (08:26)
[2022-09-13] MEDS: ROSUVASTATIN CALCIUM 5 MG TAB PO SCH (08:26)
[2022-09-13] MEDS: carvediloL 3.125 MG TAB PO SCH ×2 (08:26→20:34)
[2022-09-13] MEDS: allopurinoL 300 MG TAB PO SCH (08:27)
[2022-09-13] MEDS: ENOXAPARIN INJ 40 MG/0.4 ML SYR SQ SCH ×2 (08:27→20:34)
[2022-09-13] MEDS: TAMSULOSIN HCL 0.4 MG CAP PO SCH (08:27)
[2022-09-13 08:34] LABS: Basophils # (auto) 0.05 K/uL (0-0.2); Basophils % (auto) 0.2 %; Eosinophils % (auto) 0.5 %; Hematocrit (blood only) 36.1 % (42.0-52.0); Hemoglobin 12.3 g/dl (14.0-18.0); Immature Granulocytes # (auto) 0.16 K/uL (0.01-0.20); Immature Granulocytes % (auto) 0.8 %; Lymphocytes # (auto) 0.84 K/uL (1.2-3.4); Lymphocytes % (auto) 4.2 %; Mean Corpuscular Hemoglobin 29.3 pg (25.0-34.0); Mean Corpuscular Hgb Conc 34.1 g/dL (32.0-36.0); Mean Platelet Volume 10.8 fL (9.4-12.4); Monocytes # (auto) 1.08 K/uL (0.11-0.59); Monocytes % (auto) 5.4 %; Neutrophils # (auto) 17.82 K/uL (1.40-6.50); Neutrophils % (auto) 88.9 %; Platelet Count 158 K/uL (130-400); RDW Coefficient of Variation 13.8 % (11.5-14.5); RDW Standard Deviation 42.7 fL (36.4-46.3); White Blood Count 20.05 K/ul (4.8-10.8)
[2022-09-13 08:57] LABS: Albumin Globulin Ratio 1.1 (0.9-2); Albumin Level 3.9 gm/dl (3.4-5.0); BUN Creatinine Ratio 21.7 (10-20); Bilirubin,Total 1.2 mg/dl (0.2-1.0); Calcium 8.5 mg/dl (8.6-10.3); Creatinine Clr Calc Pharmacy 116.5 ml/min; Est GFR (African American) 99.1 ml/min; Est GFR (Non-African American) 85.5 ml/min; Globulin 3.4 gm/dl (2.5-4.0); Magnesium 2.2 mg/dl (1.7-2.4); Potassium 3.5 mmol/L (3.5-5.1); Total Protein 7.3 gm/dl (6.0-8.3)
[2022-09-13 09:00] LABS: INR 1.2 (0.9-1.1); Prothrombin Time 12.7 Seconds (9.0-12.0)
[2022-09-13] MEDS ORDERED: FORMOTEROL 20 MCG/2 ML VIAL NEB SCH (09:00)
[2022-09-13] MEDS ORDERED: BUDESONIDE 0.5 MG/2 ML VIAL (PULMICORT) NEB SCH (09:00)
--- NOTE | 2022-09-13 12:03 | Urology Progress Note ---
Date of Service September 13, 2022 Assessment & Plan (1) Acute epididymitis: (2) Acute UTI (urinary tract infection): Plan: Follow-up of right epididymoorchitis, UTI Afebrile overnight and hemodynamically stable Labs reviewed - creatinine 0.83, WBC 20.05, Hgb 12.3 Urine culture showing Gram negative bacilli Blood cultures no growth x24 hours Continue broad-spectrum antibiotics and narrow per sensitivity data when available Recommend scrotal elevation when sitting/laying flat and can try alternating ice and/or heat to area Continue supportive care, antibiotics and medical management per medicine service will follow Admission and Anticipated Discharge Date Admission Date: September 12, 2022 Subjective Patient seen and examined at bedside. present. He is awake, alert and sitting up in bedside chair. Subjectively improved today. Notes mild right scrotal discomfort. Denies nausea, vomiting, fever or chills. Review of Systems Constitutional: as per Subjective / HPI Gastrointestinal: as per Subjective / HPI Genitourinary: + as per Subjective / HPI Physical Exam Constitutional: + morbidly obese; no acute distress Respiratory: no respiratory distress and no labored breathing on supplemental oxygen Neurologic: moves all extremities and awake Psychiatric: Orientation: alert and oriented x 3 Genitourinary: Scrotal swelling R>L, firmer on the right compared with the left. More tender on the right, focally over the right epididymis. There is no fluctuance. There is minimal erythema of the scrotal skin. There are no draining areas to suggest underlying abscess. No crepitus appreciated. No tenderness over the perineum. Results & Data Vital Signs (Past 12 Hours) Vital Signs Temp Pulse Pulse Resp BP Pulse Ox O2 Del Method 09/13/22 11:26 36.8 C 78 20 126/66 96 Nasal Cannula 09/13/22 08:30 Nasal Cannula 09/13/22 07:53 96 Nasal Cannula 09/13/22 07:48 36.9 C 80 20 130/69 89 L Room Air 09/13/22 07:29 90 18 87 L Room Air 09/13/22 07:17 81 O2 Flow Rate 09/13/22 11:26 5 09/13/22 08:30 5 09/13/22 07:53 5 09/13/22 07:48 09/13/22 07:29 09/13/22 07:17 PG Care Time/CCT Total # of Minutes Spent Total Time Spent with Patient: Total time spent is greater than 50% in coordination of care (as documented) at patient's floor/unit and/or counseling patient: Coding Level of Care Code 02788 SUB INP/OBS CARE 03/24MIN Diagnoses Acute epididymitis N45.1 Acute UTI (urinary tract infection) N39.0
[2022-09-13] MEDS: ASPIRIN 81 MG ECTAB PO SCH (20:34)
--- NOTE | 2022-09-13 22:35 | Hospitalist Progress Note ---
Date of Service September 13, 2022 Assessment & Plan (1) Sepsis: Plan: -Admit to med/tele on cont pulse oximetry -Currently stable on his baseline 3L NC and hemodynamically stable -At this time his source appears to be his UTI awaiting cultures. appreciate input from Urology. -Significant leukocytosis with left shift, no signs of consolidation on CXR or CT Chest, no GI symptoms, no signs of wounds of skin infections -UA appears infected -Lactate WNL -S/P one dose of zosyn and 500 mL NSS in the ED -Will continue with zosyn for now as he already tolerated a dose in the ED -Follow blood and urine cultures -SQ lovenox for DVT PPX -HH diet with 2L fluid restriction (2) UTI (urinary tract infection): Plan: -Ua appears infected -No previous history of resistant organisms in our system -Continue zosyn for now, tailor abx to urine and blood cultures -Will have nursing staff obtain bladder scan and PVR to monitor for retention (3) AMS (altered mental status): Plan: -Resolved -Patient is alert and completely oriented -Patient's daughter confirms he is back to his baseline mental status -Likely due to acute illness -Continue to monitor (4) Elevated troponin: Plan: -Initial high sen trop elevated at 30 -Patient is without chest pain or acute ST segment or T-wave changes on ECG -Likely due to demand from sepsis -Will repeat a STAT repeat trop on admission, continue to monitor on tele (5) Testicle pain: Plan: -Patient started to develop right scrotal/testicular pain approximately 3 days ago -Denies any perineal pain or other symptoms to suggest acute bacterial prost atitis at this time -Procal WNL and patient is not toxic -Right testicle appears swollen and tender on exam -reviewed U/S results (6) Chronic respiratory failure with hypoxia: Plan: -Currently stable on his baseline 3L NC at the time of the admission -Was likely more hypoxic this am due to lethargy and hx of ADILSON -No signs of PNA or significant fluid in his lungs -Will hold his Breo Ellipta and switch to Budesonide and formoterol nebs while admitted -PRN DuoNebs for SOB -Continue 3L NC and titrate O2 to keep SpO2 between 88-92% (7) Cerebrovascular small vessel disease: Plan: -Continue aspirin (8) Hypertension: Plan: -Stable -Will continue his BID carvedilol -Hold losartan and diltiazem for now to prevent hypotension with sepsis (9) Diastolic congestive heart failure: Plan: -Examines euvolemic -Normally takes 180 mg PO lasix daily -Will give him 40 mg IV lasix this afternoon to prevent volume overload with IV fluids in the ED -Monitor BP and volume status tomorrow and adjust diuretics as needed (10) Hypothyroidism: Plan: -Continue levothyroxine (11) Obstructive sleep apnea: Plan: -Patient typically sleeps from 2am-11am per his daughter -Does where CPAP when he sleeps, other daughter is bringing in CPAP machine now -Communication placed and spoke to nursing staff about having patient wear CPAP while sleeping during the day (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 Sotelo at the time of the admission Admission and Anticipated Discharge Date Admission Date: September 12, 2022 Subjective Patient reports no new symptoms. Review of Systems Review of Systems: All systems reviewed & are unremarkable except as noted in HPI & below Physical Exam Physical Exam: General: In no acute distress, stated age, morbidly obese, ill but non-toxic appearing HEENT: Normocephalic, atraumatic, no scleral icterus, pupils around round, symmetrical, and reactive to light, NC in place, moist mucus membranes, trachea midline, no thyromegaly Chest/Pulm: No respiratory distress, symmetrical chest expansion, distant lung sounds due to body habitus Cardiac: RRR, no murmurs noted Abdomen: Negative for ascites and bruising, normoactive bowel sounds, soft, non-tender to palpation throughout : Patient with swelling of the scrotum, no tenderness to palpation of the left testicle, significant tenderness to palpation of the right testicle, no relief of pain with elevation of the testicles Musculoskeletal: Symmetrical and without signs of acute trauma, upper and lower extremities with full ROM, no atrophy, spasticity, or flaccidity Extremities: Radial, dorsalis pedis, and posterior tibial pulses are intact and symmetrical, no edema noted in the BL LE's Skin: Warm, dry, no rashes , lesions, or scars noted Neuro: Alert and oriented to person, place, month, year, and president, no focal defects, CN II-XII tested and intact, no tremors noted Psych: No acute distress, calm and cooperative during the exam Results & Data Results & Data Vital Signs (Past 12 Hours) Vital Signs Temp Pulse Pulse Resp BP Pulse Ox O2 Del Method 09/13/22 20:19 36.8 C 82 20 145/71 H 96 Room Air 09/13/22 19:24 80 18 95 CPAP 09/13/22 15:23 36.5 C 79 16 126/79 90 CPAP 09/13/22 15:13 79 09/13/22 13:17 71 09/13/22 11:26 36.8 C 78 20 126/66 96 Nasal Cannula O2 Flow Rate 09/13/22 20:19 09/13/22 19:24 5 09/13/22 15:23 09/13/22 15:13 09/13/22 13:17 09/13/22 11:26 5 PG Care Time/CCT Total # of Minutes Spent Total Time Spent with Patient: Total time spent is greater than 50% in coordination of care (as documented) at patient's floor/unit and/or counseling patient: Coding Level of Care Code 39834 SUB INP/OBS CARE 2/35MIN Diagnoses Sepsis A41.9 UTI (urinary tract infection) N39.0 AMS (altered mental status) R41.82 Elevated troponin R77.8 Testicle pain N50.819 Chronic respiratory failure with hypoxia J96.11 Cerebrovascular small vessel disease I67.9 Hypertension I10 Hypertension type: essential hypertension Diastolic congestive heart failure I50.32 Heart failure chronicity: chronic Hypothyroidism E03.9 Obstructive sleep apnea G47.33 BPH with obstruction/lower urinary tract symptoms N40.1; N13.8 Acute epididymitis N45.1 Acute bacterial prostatitis N41.0 (8) Hypertension Hypertension type: essential hypertension Qualified Code(s): I10 - Essential (primary) hypertension (9) Diastolic congestive heart failure Heart failure chronicity: chronic Qualified Code(s): I50.32 - Chronic diastolic (congestive) heart failure
[2022-09-14] MEDS: PIPERACILLIN/TAZOBACTAM 4.5 GM in DEXTROSE 5% 100 ML IV SCH ×3 (05:48→19:22)
[2022-09-14] MEDS: LEVOTHYROXINE SODIUM 50 MCG TABLET PO SCH (05:49)
[2022-09-14] MEDS: FORMOTEROL 20 MCG/2 ML VIAL NEB SCH ×2 (07:37→18:03)
[2022-09-14] MEDS: BUDESONIDE 0.5 MG/2 ML VIAL (PULMICORT) NEB SCH ×2 (07:37→18:03)
[2022-09-14] MEDS: ENOXAPARIN INJ 40 MG/0.4 ML SYR SQ SCH ×2 (08:37→19:22)
[2022-09-14] MEDS: TAMSULOSIN HCL 0.4 MG CAP PO SCH (08:38)
[2022-09-14] MEDS: FINASTERIDE 5 MG TAB PO SCH (08:38)
[2022-09-14] MEDS: allopurinoL 300 MG TAB PO SCH (08:38)
[2022-09-14] MEDS: carvediloL 3.125 MG TAB PO SCH ×2 (08:39→19:23)
[2022-09-14] MEDS: DOCUSATE SODIUM 100 MG CAP PO SCH ×2 (08:40→19:26)
[2022-09-14 10:36] LABS: Hematocrit (blood only) 35.8 % (42.0-52.0); Hemoglobin 12.2 g/dl (14.0-18.0); Mean Corpuscular Hemoglobin 29.3 pg (25.0-34.0); Mean Corpuscular Hgb Conc 34.1 g/dL (32.0-36.0); Mean Corpuscular Volume 86.1 fL (80.0-100.0); Mean Platelet Volume 11.5 fL (9.4-12.4); Platelet Count 172 K/uL (130-400); RDW Coefficient of Variation 13.5 % (11.5-14.5); RDW Standard Deviation 42.2 fL (36.4-46.3); Red Blood Count 4.16 M/uL (4.70-6.10); White Blood Count 13.86 K/ul (4.8-10.8)
[2022-09-14 10:47] LABS: Albumin Level 3.6 gm/dl (3.4-5.0); BUN Creatinine Ratio 22.4 (10-20); Bilirubin,Total 0.9 mg/dl (0.2-1.0); Calcium 8.8 mg/dl (8.6-10.3); Creatinine Clr Calc Pharmacy 126.9 ml/min; Est GFR (African American) 102.7 ml/min; Est GFR (Non-African American) 88.6 ml/min; Globulin 3.6 gm/dl (2.5-4.0); Magnesium 2.3 mg/dl (1.7-2.4); Potassium 3.4 mmol/L (3.5-5.1); Total Protein 7.2 gm/dl (6.0-8.3)
[2022-09-14 10:54] LABS: INR 1.1 (0.9-1.1); Prothrombin Time 11.9 Seconds (9.0-12.0)
[2022-09-14 10:58] LABS: Basophils # (auto) 0.04 K/uL (0-0.2); Basophils % (auto) 0.3 %; Eosinophils # (auto) 0.22 K/uL (0-0.50); Eosinophils % (auto) 1.6 %; Immature Granulocytes % (auto) 0.7 %; Lymphocytes # (auto) 0.41 K/uL (1.2-3.4); Monocytes # (auto) 0.39 K/uL (0.11-0.59); Monocytes % (auto) 2.8 %; Neutrophils % (auto) 91.6 %
[2022-09-14 11:09] LABS: Chlam trach RNA(Genit,Ureth,Ur Not Detected (NotDetected); GC(Neis gon)RNA(Genit,Ureth,Ur Not Detected (NotDetected)
--- NOTE | 2022-09-14 16:05 | Urology Progress Note ---
Date of Service September 14, 2022 Assessment & Plan (1) Acute epididymitis: (2) Acute UTI (urinary tract infection): Plan: Follow-up of right epididymoorchitis, UTI Afebrile overnight and hemodynamically stable Labs reviewed - creatinine 0.76, WBC 13.86, Hgb 12.2 Urine culture grew out E. coli Blood cultures no growth x48 hours Can narrow antibiotics per sensitivity data Continue IV antibiotics for now Recommend scrotal elevation when sitting/laying flat and can try alternating ice and/or heat to area Continue supportive care, antibiotics and medical management per medicine service Will arrange outpatient follow-up with our service Admission and Anticipated Discharge Date Admission Date: September 12, 2022 Subjective Patient seen and examined at bedside this afternoon. Family present at bedside. Subjectively feeling better. Reports right scrotal discomfort improving. Voiding without difficulty, denies dysuria or hematuria. Denies nausea, vomiting, fever or chills. Review of Systems Constitutional: as per Subjective / HPI Gastrointestinal: as per Subjective / HPI Genitourinary: + as per Subjective / HPI Physical Exam Constitutional: + morbidly obese; no acute distress Respiratory: no respiratory distress and no labored breathing Neurologic: moves all extremities and awake Psychiatric: Orientation: alert and oriented x 3 Results & Data Vital Signs (Past 12 Hours) Vital Signs Temp Pulse Resp BP Pulse Ox Pulse Ox Pulse Ox 09/14/22 15:48 37.6 C H 78 16 135/70 94 09/14/22 11:40 94 91 09/14/22 11:21 37.2 C 84 16 150/83 H 95 09/14/22 10:02 09/14/22 07:56 37.0 C 88 16 138/88 96 09/14/22 07:38 82 20 95 09/14/22 04:17 37.0 C 86 20 148/79 H 92 O2 Del Method O2 Flow Rate O2 Flow Rate O2 Flow Rate 09/14/22 15:48 Nasal Cannula 4 09/14/22 11:40 4 4 09/14/22 11:21 Nasal Cannula 4 09/14/22 10:02 Nasal Cannula 5 09/14/22 07:56 Nasal Cannula 4 09/14/22 07:38 Nasal Cannula 4 09/14/22 04:17 Room Air, CPAP PG Care Time/CCT Total # of Minutes Spent Total Time Spent with Patient: Total time spent is greater than 50% in coordination of care (as documented) at patient's floor/unit and/or counseling patient: Coding Level of Care Code 03150 SUB INP/OBS CARE Diagnoses Acute epididymitis N45.1 Acute UTI (urinary tract infection) N39.0
--- NOTE | 2022-09-14 19:06 | XRay Report ---
TWO VIEW CHEST CLINICAL HISTORY: Hypoxia. FINDINGS: PA and lateral chest radiographs are compared to chest x-ray and chest CT dated 09/12/2022. The heart is enlarged noting atherosclerotic calcification of the thoracic aorta. There is mild pulmo nary vascular congestion. There is elevation of the right hemidiaphragm with bibasilar atelectasis. N o airspace consolidation or pleural effusion is identified. There is no pneumothorax. The skeletal st ructures are osteopenic. The bony thorax appears intact. Degenerative change is noted in the thoracic spine. IMPRESSION: Cardiomegaly with mild pulmonary vascular congestion. ACT 112: Negative or not required by law. Electronically signed by: Pravin Shepherd M.D. 09/14/2022 7:03 PM
[2022-09-14] MEDS: ASPIRIN 81 MG ECTAB PO SCH (19:23)
[2022-09-14] MEDS: ALBUT/IPRATROP 3MG/0.5MG NEB 3 ML VIAL NEB PRN (19:39)
--- NOTE | 2022-09-14 21:23 | Hospitalist Progress Note ---
Date of Service September 14, 2022 Assessment & Plan (1) Sepsis: Plan: -Admit to med/tele on cont pulse oximetry -Currently stable on his baseline 3L NC and hemodynamically stable -At this time his source appears to be his UTI cultures showing e coli sentive to cephalospoorins, will contine IV antibiotics for another day and then transition to orals. WBC improving. appreciate input from Urology. -Significant leukocytosis with left shift, no signs of consolidation on CXR or CT Chest, no GI symptoms, no signs of wounds of skin infections -UA appears infected -Lactate WNL -S/P one dose of zosyn and 500 mL NSS in the ED -Will continue with zosyn for now as he already tolerated a dose in the ED -Follow blood and urine cultures -SQ lovenox for DVT PPX -HH diet with 2L fluid restriction (2) UTI (urinary tract infection): Plan: -Ua appears infected -No previous history of resistant organisms in our system -Continue zosyn for now, tailor abx to urine and blood cultures -Will have nursing staff obtain bladder scan and PVR to monitor for retention will remain on IV antibiotics for another day and then transition to oral antibiotics. (3) AMS (altered mental status): Plan: Metabolic encephalopathy -Resolved -Patient is alert and completely oriented -Patient's daughter confirms he is back to his baseline mental status -Likely due to acute illness -Continue to monitor (4) Elevated troponin: Plan: Demand ischemia -Initial high sen trop elevated at 30 -Patient is without chest pain or acute ST segment or T-wave changes on ECG -Likely due to demand from sepsis -Will repeat a STAT repeat trop on admission, continue to monitor on tele (5) Testicle pain: Plan: -Patient started to develop right scrotal/testicular pain approximately 3 days ago -Denies any perineal pain or other symptoms to suggest acute bacterial prostatitis at this time -Procal WNL and patient is not toxic -Right testicle appears swollen and tender on exam -reviewed U/S results (6) Chronic respiratory failure with hypoxia: Plan: -Currently stable on his baseline 3L NC at the time of the admission -Was likely more hypoxic this am due to lethargy and hx of ADILSON possibe some pulmonary edema, will obtain chest x ray. -No signs of PNA or significant fluid in his lungs -Will hold his Breo Ellipta and switch to Budesonide and formoterol nebs while admitted -PRN DuoNebs for SOB -Continue 3L NC and titrate O2 to keep SpO2 between 88-92% (7) Cerebrovascular small vessel disease: Plan: -Continue aspirin (8) Hypertension: Plan: -Stable -Will continue his BID carvedilol -Hold losartan and diltiazem for now to prevent hypotension with sepsis (9) Diastolic congestive heart failure: Plan: -Examines euvolemic -Normally takes 180 mg PO lasix daily -Will give him 40 mg IV lasix this afternoon to prevent volume overload with IV fluids in the ED -Monitor BP and volume status tomorrow and adjust diuretics as needed (10) Hypothyroidism: Plan: -Continue levothyroxine (11) Obstructive sleep apnea: Plan: -Patient typically sleeps from 2am-11am per his daughter -Does where CPAP when he sleeps, other daughter is bringing in CPAP machine now -Communication placed and spoke to nursing staff about having patient wear CPAP while sleeping during the day (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 (14) Acute bacterial prostatitis: Plan The patient was discussed with Dr. Sotelo at the time of the admission Admission and Anticipated Discharge Date Admission Date: September 12, 2022 Subjective Patient reports breathing better, he has no new symptoms. Review of Systems Review of Systems: All systems reviewed & are unremarkable except as noted in HPI & below Physical Exam Physical Exam: General: In no acute distress, stated age, morbidly obese, ill but non-toxic appearing HEENT: Normocephalic, atraumatic, no scleral icterus, pupils around round, symmetrical, and reactive to light, NC in place, moist mucus membranes, trachea midline, no thyromegaly Chest/Pulm: No respiratory distress, symmetrical chest expansion, distant lung sounds due to body habitus Cardiac: RRR, no murmurs noted Abdomen: Negative for ascites and bruising, normoactive bowel sounds, soft, non-tender to palpation throughout : Patient with swelling of the scrotum, no tenderness to palpation of the left testicle, significant tenderness to palpation of the right testicle, no relief of pain with elevation of the testicles Musculoskeletal: Symmetrical and without signs of acute trauma, upper and lower extremities with full ROM, no atrophy, spasticity, or flaccidity Extremities: Radial, dorsalis pedis, and posterior tibial pulses are intact and symmetrical, no edema noted in the BL LE's Skin: Warm, dry, no rashes , lesions, or scars noted Neuro: Alert and oriented to person, place, month, year, and president, no focal defects, CN II-XII tested and intact, no tremors noted Psych: No acute distress, calm and cooperative during the exam Results & Data Results & Data Vital Signs (Past 12 Hours) Vital Signs Temp Pulse Pulse Resp BP Pulse Ox Pulse Ox 09/14/22 19:39 79 18 96 09/14/22 19:35 37.4 C 81 20 115/59 L 97 09/14/22 14:20 80 09/14/22 18:07 81 22 97 09/14/22 15:48 37.6 C H 78 16 135/70 94 09/14/22 11:40 94 09/14/22 11:21 37.2 C 84 16 150/83 H 95 09/14/22 10:02 Pulse Ox O2 Del Method O2 Flow Rate O2 Flow Rate O2 Flow Rate 09/14/22 19:39 Nasal Cannula 3 09/14/22 19:35 Nasal Cannula 3 09/14/22 14:20 09/14/22 18:07 Nasal Cannula 4 09/14/22 15:48 Nasal Cannula 4 09/14/22 11:40 91 4 4 09/14/22 11:21 Nasal Cannula 4 09/14/22 10:02 Nasal Cannula 5 PG Care Time/CCT Total # of Minutes Spent Total Time Spent with Patient: Total time spent is greater than 50% in coordination of care (as documented) at patient's floor/unit and/or counseling patient: Coding Level of Care Code 71900 SUB INP/OBS CARE 3/50MIN Diagnoses Sepsis A41.9 UTI (urinary tract infection) N39.0 AMS (altered mental status) R41.82 Elevated troponin R77.8 Testicle pain N50.819 Chronic respiratory failure with hypoxia J96.11 Cerebrovascular small vessel disease I67.9 Hypertension I10 Hypertension type: essential hypertension Diastolic congestive heart failure I50.32 Heart failure chronicity: chronic Hypothyroidism E03.9 Obstructive sleep apnea G47.33 BPH with obstruction/lower urinary tract symptoms N40.1; N13.8 Acute epididymitis N45.1 Acute bacterial prostatitis N41.0 (8) Hypertension Hypertension type: essential hypertension Qualified Code(s): I10 - Essential (primary) hypertension (9) Diastolic congestive heart failure Heart failure chronicity: chronic Qualified Code(s): I50.32 - Chronic diastolic (congestive) heart failure
[2022-09-15] MEDS: ALBUT/IPRATROP 3MG/0.5MG NEB 3 ML VIAL NEB PRN (04:13)
[2022-09-15] MEDS: PIPERACILLIN/TAZOBACTAM 4.5 GM in DEXTROSE 5% 100 ML IV SCH (05:28)
[2022-09-15] MEDS: LEVOTHYROXINE SODIUM 50 MCG TABLET PO SCH (05:29)
[2022-09-15 07:00] LABS: Basophils # (auto) 0.03 K/uL (0-0.2); Basophils % (auto) 0.3 %; Eosinophils # (auto) 0.09 K/uL (0-0.50); Eosinophils % (auto) 0.9 %; Hematocrit (blood only) 35.2 % (42.0-52.0); Hemoglobin 11.7 g/dl (14.0-18.0); Immature Granulocytes # (auto) 0.09 K/uL (0.01-0.20); Immature Granulocytes % (auto) 0.9 %; Lymphocytes # (auto) 0.42 K/uL (1.2-3.4); Lymphocytes % (auto) 4.1 %; Mean Corpuscular Hgb Conc 33.2 g/dL (32.0-36.0); Mean Corpuscular Volume 87.3 fL (80.0-100.0); Mean Platelet Volume 10.6 fL (9.4-12.4); Monocytes # (auto) 0.75 K/uL (0.11-0.59); Monocytes % (auto) 7.2 %; Neutrophils # (auto) 8.98 K/uL (1.40-6.50); Neutrophils % (auto) 86.6 %; Platelet Count 179 K/uL (130-400); RDW Coefficient of Variation 13.5 % (11.5-14.5); RDW Standard Deviation 43.5 fL (36.4-46.3); Red Blood Count 4.03 M/uL (4.70-6.10); White Blood Count 10.36 K/ul (4.8-10.8)
[2022-09-15] MEDS: FORMOTEROL 20 MCG/2 ML VIAL NEB SCH (07:02)
[2022-09-15] MEDS: BUDESONIDE 0.5 MG/2 ML VIAL (PULMICORT) NEB SCH (07:02)
[2022-09-15 07:25] LABS: INR 1.1 (0.9-1.1); Prothrombin Time 12.4 Seconds (9.0-12.0)
[2022-09-15 07:26] LABS: Albumin Level 3.5 gm/dl (3.4-5.0); BUN Creatinine Ratio 21.6 (10-20); C Reactive Protein 17.88 mg/dl (0-0.5); Calcium 8.5 mg/dl (8.6-10.3); Creatinine Clr Calc Pharmacy 130.5 ml/min; Est GFR (African American) 103.8 ml/min; Est GFR (Non-African American) 89.6 ml/min; Globulin 3.4 gm/dl (2.5-4.0); Magnesium 2.3 mg/dl (1.7-2.4); Potassium 3.6 mmol/L (3.5-5.1); Total Protein 6.9 gm/dl (6.0-8.3)
[2022-09-15] MEDS: DOCUSATE SODIUM 100 MG CAP PO SCH (08:47)
[2022-09-15] MEDS: ENOXAPARIN INJ 40 MG/0.4 ML SYR SQ SCH (08:47)
[2022-09-15] MEDS: TAMSULOSIN HCL 0.4 MG CAP PO SCH (08:47)
[2022-09-15] MEDS: ROSUVASTATIN CALCIUM 5 MG TAB PO SCH (08:48)
[2022-09-15] MEDS: FINASTERIDE 5 MG TAB PO SCH (08:48)
[2022-09-15] MEDS: carvediloL 3.125 MG TAB PO SCH (08:48)
[2022-09-15] MEDS: allopurinoL 300 MG TAB PO SCH (08:49)
[2022-09-15] MEDS ORDERED: FUROSEMIDE 40 MG/4 ML VIAL IV ONE (09:53)
[2022-09-15] MEDS ORDERED: CEFDINIR 300 MG CAP PO SCH (10:00)
[2022-09-15 11:42] LABS: PCO2 VBG 54 mmHg (38-50); PO2 VBG 36 mmHg; pH VBG 7.38 (7.36-7.41)
[2022-09-15 11:43] LABS: Base Excess VBG 5.3 mEq/L; HCO3 VBG 32 mmol/L; Oxygen Saturation VBG < 60.0 %
[2022-09-15] MEDS ORDERED: MICONAZOLE NITRATE POWDER 85 GM EXT PRN (13:27)
[2022-09-15] MEDS ORDERED: FUROSEMIDE INJ 20 MG/2 ML VIAL IV ONE (14:12)
--- NOTE | 2022-09-15 14:16 | Discharge Summary ---
Date of Service September 15, 2022 Admission HPI Per Admitting Provider Aiden is a 76 year old male with a PMH significant for restrictive lung disease, chronic hypoxic respiratory failure on 3L NC baseline, morbid obesity, ADILSON on HS CPAP, pulmonary, elevated right hemidiaphragm, HTN, cerebellar stroke, hypothyroidism, HFpEF, BPH, and Thoracic aortic aneurysm who presented to the [facility] ED on 09/12 via EMS due to AMS/lethargy. In the ED the patient was noted to be stable on 5L NC and otherwise stable. Labs were significant for a leukocytosis of 18 with left shift of 16, hgb of 12.6 (down from 13.9 as of 06/08), HCT of 37, lymphocyte count of 0.62, sodium of 134, initial high sen trop of 30, BNP of 105 (up from 69 as of 10/19, procal suggestive of UTI, and covid19/RSV/Influenza negative. CT head was read as No acute intracranial hemorrhage, no evidence of acute territorial infarction or other acute intracranial disease process.. Chest xray was read as Right lower lobe atelectasis without evidence of acute abnormality.. CT of the chest w con was read as Stable pulmonary nodules as above.. And CT of the abd/pelvis w/IV con was read as 1. Diffuse thickening of the bladder wall is nonspecific and may be secondary to underdistention, however correlation with ur inalysis is recommended to exclude UTI. 2. Re-demonstration of is seen mesentery which is nonspecific.. Prior to admission the patient was given a dose of zosyn, and 500 mL NSS. At the time of the exam the patient was sleeping comfortably in bed with his Daughter/POA sitting bedside, history was obtained from both. His Daughter states that the patient was weaker than normal starting yesterday. He was requiring his cane to ambulate in his home and did not have a much energy as normal. This am the patient was reportedly very fatigued/lethargic and confused. His daughter states that the patient had no focal neurologic defects but was just very lethargic and confused. She confirms that he is back to his baseline mental status at the time of the exam. The patient states that he started to d evelop right testicle/scrotal pain approximately 3 days ago. He denies urinary symptoms such as dysuria, hematuria, and increased urinary frequency. His daughter states that EMS took his temperature and it was 100.4F on arrival. The patient denies chest pain, increased SOB than baseline, caught, abd pain, nausea, vomiting, diarrhea, constipation, melena, increased LE swelling and recent trauma. The patient denies having scrotal/testicle pain like this in the past. The patient is a full code and would want his daughter to make medical decisions for him if he could not make them himself. Please refer to Dr. Sotelo's attestation for any changes to the treatment plan Discharge Exam General: In no acute distress, stated age, morbidly obese, ill but non-toxic appearing HEENT: Normocephalic, atraumatic, no scleral icterus, pupils around round, symmetrical, and reactive to light, NC in place, moist mucus membranes, trachea midline, no thyromegaly Chest/Pulm: No respiratory distress, symmetrical chest expansion, distant lung sounds due to body habitus Cardiac: RRR, no murmurs noted Abdomen: Negative for ascites and bruising, normoactive bowel sounds, soft, non-tender to palpation throughout : Patient with swelling of the scrotum, no tenderness to palpation of the left testicle, significant tenderness to palpation of the right testicle, no relief of pain with elevation of the testicles Musculoskeletal: Symmetrical and without signs of acute trauma, upper and lower extremities with full ROM, no atrophy, spasticity, or flaccidity Extremities: Radial, dorsalis pedis, and posterior tibial pulses are intact and symmetrical, no edema noted in the BL LE's Skin: Warm, dry, no rashes , lesions, or scars noted Neuro: Alert and oriented to person, place, month, year, and president, no focal defects, CN II-XII tested and intact, no tremors noted Psych: No acute distress, calm and cooperative during the exam Discharge Data Allergies Allergy/AdvReac Type Severity Reaction Status Date / Time ibuprofen Allergy Severe THROAT Verified 08/11/22 11:01 SWELLING Sulfa (Sulfonamide Allergy Severe Throat Verified 08/11/22 11:01 Antibiotics) tightness atenolol Allergy Mild throat Verified 08/11/22 11:01 swelling diclofenac [From Voltaren] Allergy Mild Unknown Verified 09/14/22 19:33 levofloxacin Allergy Unknown Unknown Verified 08/11/22 11:01 Consultations 09/12/22 09:20 ED Decision to Admit Stat 09/12/22 12:49 Consult Urology Routine Ordered Studies 09/12/22 07:15 CT abd pelvis IV con only Stat CT head/brain wo con Stat 09/12/22 07:20 CT chest diagnostic w con Stat 09/12/22 10:34 US scrotum/testicle Stat Hospital Course (1) Sepsis: -Admit to med/tele on cont pulse oximetry -Currently stable on his baseline 3L NC and hemodynamically stable -At this time his source appears to be his UTI cultures showing e coli sentive to cephalospoorins, will contine IV antibiotics for another day and then transition to orals. WBC improving. appreciate input from Urology. -Significant leukocytosis with left shift, no signs of consolidation on CXR or CT Chest, no GI symptoms, no signs of wounds of skin infections -UA appears infected -Lactate WNL -S/P one dose of zosyn and 500 mL NSS in the ED -Will continue with zosyn for now as he already tolerated a dose in the ED -Follow blood and urine cultures -SQ lovenox for DVT PPX -HH diet with 2L fluid restriction (2) UTI (urinary tract infection): -Ua appears infected -No previous history of resistant organisms in our system -Continue zosyn for now, tailor abx to urine and blood cultures -Will have nursing staff obtain bladder scan and PVR to monitor for retention will remain on IV antibiotics for another day and then transition to oral antib iotics. (3) AMS (altered mental status): Metabolic encephalopathy -Resolved -Patient is alert and completely oriented -Patient's daughter confirms he is back to his baseline mental status -Likely due to acute illness -Continue to monitor (4) Elevated troponin: Demand ischemia -Initial high sen trop elevated at 30 -Patient is without chest pain or acute ST segment or T-wave changes on ECG -Likely due to demand from sepsis -Will repeat a STAT repeat trop on admission, continue to monitor on tele (5) Testicle pain: -Patient started to develop right scrotal/testicular pain approximately 3 days ago -Denies any perineal pain or other symptoms to suggest acute bacterial prostatitis at this time -Procal WNL and patient is not toxic -Right testicle appears swollen and tender on exam -reviewed U/S results (6) Chronic respiratory failure with hypoxia: -Currently stable on his baseline 3L NC at the time of the admission -Was likely more hypoxic this am due to lethargy and hx of ADILSON possibe some pulmonary edema, will obtain chest x ray. -No signs of PNA or significant fluid in his lungs -Will hold his Breo Ellipta and switch to Budesonide and formoterol nebs while admitted -PRN DuoNebs for SOB -Continue 3L NC and titrate O2 to keep SpO2 between 88-92% (7) Cerebrovascular small vessel disease: -Continue aspirin (8) Hypertension: -Stable -Will continue his BID carvedilol -Hold losartan and diltiazem for now to prevent hypotension with sepsis (9) Diastolic congestive heart failure: -Examines euvolemic -Normally takes 180 mg PO lasix daily -Will give him 40 mg IV lasix this afternoon to prevent volume overload with IV fluids in the ED -Monitor BP and volume status tomorrow and adjust diuretics as needed (10) Hypothyroidism: -Continue levothyroxine (11) Obstructive sleep apnea: -Patient typically sleeps from 2am-11am per his daughter -Does where CPAP when he sleeps, other daughter is bringing in CPAP machine now -Communication placed and spoke to nursing staff about having patient wear CPAP while sleeping during the day (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 (14) Acute bacterial prostatitis: Plan The patient was discussed with Dr. Sotelo at the time of the admission Discharge Plan Discharge Items Reason For Visit: AMS/LETHERAGY Follow-up/Referrals: Broderick Chávez DO [Primary Care Provider] - Medications and DC Order Prescriptions: No Action (DME) CPAP Supplies Misc See Rx Instructions .MEDSUPPLY Qty: 1 0RF Rx Instructions: CPAP supplies. G47.33 olopatadine 0.1 % drops See Rx Instructions .ROUTE .COMPLEX Qty: 5 6RF Dose Instruction: PLACE 1 DROP INTO EACH EYE ONCE DAILY NEEDED FOR EYE IRRITATION Rx Instructions: PLACE 1 DROP INTO EACH EYE ONCE DAILY NEEDED FOR EYE IRRITATION furosemide 40 mg tablet See Rx Instructions .ROUTE .COMPLEX Qty: 90 3RF Dose Instruction: TAKE ONE TABLET BY MOUTH ONCE DAILY TOTAL DOSE 120 MG--Take with 80mg Rx Instructions: TAKE ONE TABLET BY MOUTH ONCE DAILY at bedtime. TOTAL DOSE 120 MG--Take with 80mg rosuvastatin 5 mg tablet 5 mg PO .COMPLEX Qty: 90 3RF Rx Instructions: 5 mg orally --; carvedilol 3.125 mg tablet 3.125 mg PO BID Qty: 180 3RF Rx Instructions: must administer with a meal/food levothyroxine 50 mcg tablet 50 mcg PO QAM Qty: 90 0RF dutasteride [Avodart] 0.5 mg capsule 0.5 mg PO DAILY Qty: 90 3RF furosemide 80 mg tablet See Rx Instructions .ROUTE .COMPLEX Qty: 90 1RF Dose Instruction: TAKE 1 TABLET BY MOUTH ONCE DAILY IN THE EVENING Rx Instructions: TAKE 1 TABLET BY MOUTH ONCE DAILY at noon diclofenac sodium [Voltaren Arthritis Pain] 1 % gel 2 g TOPICAL QID PRN (Reason: Pain) Qty: 100 4RF fluticasone furoate-vilanterol 100-25 mcg/dose blister with device 1 inh INH QAM Qty: 60 12RF Rx Instructions: 1 inhalation inhalation daily; (DME) CPAP Machine Misc See Rx Instructions .ROUTE .MEDSUPPLY Qty: 1 0RF Rx Instructions: NEW CPAP 10CM. CPAP SUPPLIES. HEATED HUMIDITY. JOHN 99.CARE PLUS O2 Zostrix 0.033 % cream 1 applic topical QID PRN (Reason: pain) Qty: 56.6 0RF Rx Instructions: do not wash area for at least 30 min after application alfuzosin [Uroxatral] 10 mg tablet extended release 24 hr 10 mg PO DAILY Qty: 90 3RF Rx Instructions: After the same meal each day aspirin [Agapito Low Dose Aspirin] 81 mg Tablet,Delayed Release (Dr/Ec) 81 mg PO HS Centrum Silver 0.4-300-250 mg-mcg-mcg Tablet 1 tab PO QAM Vision Formula (with lutein) 1,000 unit-200 mg-60 unit-2 mg Tablet 1 tab PO DAILY omega 7-rbf-onm-fish oil [Fish Oil] 1,000 mg (120 mg-180 mg) Capsule 1,000 mg PO QAM naproxen sodium [Aleve] 220 mg Capsule 220 mg PO DAILY coenzyme Q10 [CoQ-10] 100 mg capsule 200 mg PO QAM fluticasone propionate 50 mcg/actuation spray,suspension 2 spray INTNAS QAM Rx Instructions: administer into each nostril cetirizine [Zyrtec] 10 mg Tablet 10 mg PO QAM glucosamine-chondroitin [Osteo Bi-Flex] 250-200 mg Tablet 2 tab PO BID docusate sodium [Stool Softener] 100 mg Capsule 100 mg PO BID cholecalciferol (vitamin D3) [Vitamin D3] 125 mcg (5,000 unit) Tablet 5,000 unit PO DAILY Vitamin B12 1 tab PO DAILY Rx Instructions: Daughter not sure of the strength diltiazem HCl 360 mg capsule,extended release 24 hr 360 mg PO DAILY potassium chloride 20 mEq tablet,ER particles/crystals 40 meq PO DAILY allopurinol 300 mg tablet 300 mg PO DAILY losartan 100 mg tablet 100 mg PO DAILY Admission Data Admit Date/Time: 09/12/22 10:10 Attending Provider: Rodolfo Bedoya Admit Provider: Malik Sotelo Primary Care Provider: Broderick Chávez Other Providers: Jose Sullivan ; Raj Valdovinos ; [facility] Coding Diagnoses Sepsis A41.9 UTI (urinary tract infection) N39.0 AMS (altered mental status) R41.82 Elevated troponin R77.8 Testicle pain N50.819 Chronic respiratory failure with hypoxia J96.11 Cerebrovascular small vessel disease I67.9 Hypertension I10 Hypertension type: essential hypertension Diastolic congestive heart failure I50.32 Heart failure chronicity: chronic Hypothyroidism E03.9 Obstructive sleep apnea G47.33 BPH with obstruction/lower urinary tract symptoms N40.1; N13.8 Acute epididymitis N45.1 Acute bacterial prostatitis N41.0
[2022-09-17 06:33] LABS: A calco-baum cmplx NotReported Not Detected (NotDetected); Bact fragilis Not Reported Not Detected (NotDetected); C auris Not Reported Not Detected (NotDetected); Calbicans Not Reported Not Detected (NotDetected); Candida glabrata Not Reported Not Detected (NotDetected); Candida krusei Not Reported Not Detected (NotDetected); Cneoformans/gatti Not Reported Not Detected (NotDetected); Cparapsilosis Not Reported Not Detected (NotDetected); Ctropicalis Not Reported Not Detected (NotDetected); E cloacae compx Not Reported Not Detected (NotDetected); Efaecalis Not Reported Not Detected (NotDetected); Efaecium Not Reported Not Detected (NotDetected); Enterobacterales Not Reported Not Detected (NotDetected); Escherichia coli Not Reported Not Detected (NotDetected); H influenzae Not Reported Not Detected (NotDetected); K aerogenes Not Reported Not Detected (NotDetected); Koxytoca Not Reported Not Detected (NotDetected); Kpneumoniae grp Not Reported Not Detected (NotDetected); Lmonocyt Not Reported Not Detected (NotDetected); N meningitidis Not Reported Not Detected (NotDetected); P aeruginosa Not Reported Not Detected (NotDetected); Proteus spp Not Reported Not Detected (NotDetected); Salmonella spp Not Reported Not Detected (NotDetected); Smarcescens Not Reported Not Detected (NotDetected); Staph lugdunensis Not Reported Not Detected (NotDetected); Staph spp. Not Reported Not Detected (NotDetected); Staphaureus Not Reported Not Detected (NotDetected); Staphepi Not Reported Not Detected (NotDetected); Stenmaltophilia Not Reported Not Detected (NotDetected); Strep agal(GrpB) Not Reported Not Detected (NotDetected); Strep pneum Not Reported Not Detected (NotDetected); Strep pyog (GrpA) Not Reported Not Detected (NotDetected); Strep spp Not Reported Not Detected (NotDetected)
== END 2022-09-15 15:08 | DRG 871 ==
LOC: ED 05:08 → EDINP 10:10 → SUATTDRO 10:10 → EDINP 14:15 → 2W 14:55

== ENCOUNTER 2024-11-17 21:10 | Inpatient (IN) ==
--- NOTE | 2024-11-17 21:35 | Emergency Department Note ---
Impression & Plan Shortness of breath, Weakness, Elevated troponin ED Provider Note NAME: BRENDAN LOPEZ AGE: 78 SEX: M : 1945 ARRIVES VIA: Walk-In INFORMANT: Patient ED PROVIDER(S): Sanket Fink DO CHIEF COMPLAINT: Shortness of breath HPI: Patient is a 78-year-old male with a past medical history of COVID, prediabetes, BPH chronic hypoxia with a history of COPD on 3 L nasal cannula that presents to the ER for shortness of breath. He notes shortness of breath has been present for the past 2 weeks. He was placed on steroids this past weekend and his shortness of breath has slightly improved since the diagnosis of COVID. Daughter present at bedside initially felt the shortness of breath had been getting worse and consequently not why she brought him in. Family notes that he has been hypoxic and dropping down to the 80s with his oxygen walking at home. They also note that he becomes significantly dyspneic with any movement. ADDITIONAL HISTORY OBTAINED: Per HPI Chronic Medical/Social Conditions Affecting Care: Per HPI PAST MEDICAL HISTORY:See Below PAST SURGICAL HISTORY:See Below FAMILY HISTORY:See Below SOCIAL HISTORY:See Below HOME MEDICATIONS:See Below ALLERGIES:See Below VITALS:See Below PHYSICAL EXAMINATION: GENERAL: Sitting up in bed, alert, well appearing, well nourished, no distress, non-toxic EYE EXAM: normal conjunctiva. PERRL and EOM's grossly intact. OROPHARYNX: mucous membranes are moist NECK: supple, no nuchal rigidity, no adenopathy, non-tender LUNGS: Clear to auscultation. Normal chest wall mechanics HEART: no murmurs, S1 normal and S2 normal ABDOMEN: abdomen soft, non-tender, normo-active bowel sounds, no masses, no rebound or guarding. UPPER EXTREMITIES: upper extremities are grossly normal. LOWER EXTREMITIES: No pitting edema. NEURO EXAM: Normal sensorium, cranial nerves II-XII grossly intact, normal speech, no gross weakness of arms, no gross weakness of legs. MEDICAL DECISION MAKING: Patient is a 78-year-old male who presents ER for above-stated complaint. IV was established and blood work was obtained. He has a history of chronic hypoxia on 3 L nasal cannula. Labs show no significant leukocytosis and a or anemia. BMP with LFTs and bilirubin was fairly unremarkable. Troponin elevated at 63 with a baseline that appears to be around 30. Lipase is normal. Chest x- ray shows enlarged cardiac silhouette. Patient was placed on usual 3 L nasal cannula. Family notes that he has been intermittently hypoxic at home with movement. He has been more short of breath. He consequently was discussed with the hospitalist for further evaluation management and treatment. Consults/Care Managements Discussions: Per [facility] Triage Nursing notes reviewed. Limited review of prior medical records performed Vital Signs: reviewed and remarkable for 106% on chronic 3 L Differential diagnosis: Differential diagnoses includes but is not limited to pneumonia, bronchitis, COPD/Asthma exacerbation, pneumothorax, pulmonary embolism, congestive heart failure, acute coronary syndrome ER treatment provided: See below Diagnostics interpreted by me include EKG and cardiac monitoring as listed below: -Cardiac Monitoring: An order was placed for continuous cardiac monitoring. The monitor shows a rate of 70 with sinus rhythm. -ECG: Sinus rhythm with first-degree AV block Left axis PVCs QTc 486 -Laboratory studies:Interpreted by me as stated above in MDM and shown below. Imaging studies: Xrays: As interpreted by me: Portable AP upright 1 view of the chest shows enlarged cardiac silhouette CTs show: none Procedures:none Critical Care: None Past Med/Surg History Problem List (Updated 11/17/24 @ 23:33 by Sanket Fink DO) Elevated troponin (Acute) Weakness (Acute) Shortness of breath (Acute) COVID-19 (Acute) Prediabetes BPH (benign prostatic hyperplasia) Acute bacterial prostatitis Acute epididymitis (Acute) Acute UTI (urinary tract infection) (Acute) Sepsis (Acute) Hypoxia (Acute) Elevated troponin Chronic respiratory failure with hypoxia AMS (altered mental status) Testicle pain UTI (urinary tract infection) Sepsis Inflamed seborrheic keratosis Vitamin D deficiency Hypertension (Chronic) Bilateral leg edema (Chronic) Cerebrovascular small vessel disease (Chronic) Follows Dr. Scott Diastolic congestive heart failure (Chronic) Follows Dr. Scott Dyslipidemia (Chronic) Elevated prostate specific antigen (PSA) (Chronic) Enlarged aorta (Chronic) Gout (Chronic) Hyperglycemia (Chronic) Hypothyroidism (Chronic) Lumbar radiculopathy Lung nodule, solitary (Chronic) Obesity, morbid, BMI 40.0-49.9 (Chronic) Obstructive sleep apnea (Chronic) cpap Pulmonary hypertension (Chronic) Restless legs syndrome (Chronic) Shortness of breath on exertion (Chronic) Thoracic aortic aneurysm (Chronic) Follows Dr. Scott Cerebellar stroke (Chronic) ~ 1.5 years ago, tongue numbness on occassion - follows Dr. Scott BPH with obstruction/lower urinary tract symptoms History of hip replacement right Left asymmetrical SNHL SNHL (sensorineural hearing loss) bilateral - h/a Arthritis, multiple joint involvement Restrictive lung disease Elevated diaphragm Pulmonary nodule Obstructive Sleep Apnea-Hypopnea Syndrome (Chronic) Impacted cerumen of left ear Sensorineural hearing loss (SNHL) of both ears Dyspnea Abdominal aortic aneurysm Coronary artery calcification seen on CAT scan Encounter for pre-operative examination History of colon polyps Chronic venous insufficiency Neuropathic ulcer of toe (Acute) Ex-smoker Weakness Medical History (Updated 11/17/24 @ 23:33 by Sanket Fink DO) B12 deficiency Venous ulcers of both lower extremities Spinal stenosis inject prn by Dr. Shobha Reid Polyneuropathy Urinary retention Peripheral edema Numbness of tongue on occasion per pt Nephrolithiasis Multiple pulmonary nodules Laryngopharyngeal reflux Internal hemorrhoids Diastolic dysfunction High blood pressure DJD (degenerative joint disease) of hip Surgical History Status post left foot surgery History of colonoscopy History of carpal tunnel surgery left History of ankle surgery H/O knee surgery left Family History Father Hypertension Heart disease Myocardial infarction Mother Heart disease Other Allergies Hearing loss Nephrolithiasis Denies family history of Ovarian cancer Prostate cancer Diabetes Breast cancer Lung cancer Colorectal cancer Stroke Social History (Updated 03/21/24 @ 11:11 by Buffy Martinez) Smoking Status: Former smoker Tobacco Type: Cigarettes and Smokeless Tobacco (Dip or Chew) Age Started Using Tobacco: 16; Age Quit Using Tobacco: 62; packs per day: 1; Cigarettes Per Day: 1pk / day; Second Hand Exposure: No; Do You Dip or Chew Tobacco: Yes; Hx Alcohol Use: No Hx Substance Use: No Preferred Language: Korean Communication Ability: Effective Visual Impairment: Limited Hearing Ability: Use of Hearing Aid [employer] Required: No Beliefs That Will Affect Care: None marital status: Current Living Situation: Spouse current occupational status: retired How many Children do You have: 2 Feels Safe at Home: Yes Childhood Exposure to Second-Hand Smoke: Yes Diet: regular caffeine: Yes Dental Care, Regularly: Yes Physical Activity Frequency: Does not Exercise Seatbelt Use: always Sunscreen Use: Yes Gender Identity: Male Assistive Devices: CPAP Allergies Allergies Allergy/AdvReac Type Severity Reaction Status Date / Time atenolol Allergy Severe throat Verified 11/11/24 22:44 swelling ibuprofen Allergy Severe THROAT Verified 11/11/24 22:44 SWELLING Sulfa (Sulfonamide Allergy Severe Throat Verified 11/11/24 22:44 Antibiotics) tightness diclofenac [From Voltaren] Allergy Mild Unknown Verified 11/11/24 22:44 levofloxacin Allergy Unknown Unknown Verified 11/11/24 22:44 Home Meds Home Medications Medication Instructions Recorded Confirmed aspirin 81 mg tablet,delayed 81 mg PO HS 12/24/17 11/17/24 release (Agapito Low Dose Aspirin) lzbhfwwu-jwe-oqsey acid 0.4 1 tab PO QAM 12/24/17 11/17/24 mg-lycopene 300 mcg-lutein 250 mcg tablet (Centrum Silver) omega 2-nsk-yjj-fish oil 1,000 mg 1,000 mg PO QAM 12/24/17 11/17/24 (120 mg-180 mg) capsule (Fish Oil) vit A 300 mcg-C 200 mg-E 27 1 tab PO DAILY 12/24/17 11/17/24 mg-lutein 2 mg and minerals tablet (Vision Formula (with lutein)) cetirizine 10 mg tablet (Zyrtec) 10 mg PO QAM 01/03/21 11/17/24 coenzyme Q10 100 mg capsule 200 mg PO QAM 08/11/22 11/17/24 (CoQ-10) cholecalciferol (vitamin D3) 125 5,000 unit PO DAILY 09/12/22 11/17/24 mcg (5,000 unit) tablet (Vitamin D3) docusate sodium 100 mg capsule 100 mg PO BID 09/12/22 11/17/24 (Stool Softener) melatonin 10 mg tablet 10 mg PO HS PRN Sleep 09/29/22 11/17/24 naproxen sodium 220 mg capsule 220 mg PO DAILY PRN Pain 03/02/23 11/17/24 (Aleve) olopatadine 0.1 % eye drops 1 drp OPB DAILY PRN Eye Irritation 09/19/24 11/17/24 trazodone 50 mg tablet 100 mg PO HS 09/19/24 11/17/24 Crenshaw Xl Suppliment 2 tab PO DAILY 11/11/24 11/17/24 allopurinol 300 mg tablet 300 mg PO DAILY 11/11/24 11/17/24 cyanocobalamin (vitamin B-12) 1,000 mcg PO Q OTHER DAY 11/11/24 11/17/24 1,000 mcg tablet (Vitamin B-12) diclofenac sodium 1 % topical gel 2 g topical QID PRN Pain 11/11/24 11/17/24 diltiazem HCl 360 mg capsule,24 360 mg PO DAILY 11/11/24 11/17/24 hr,extended release furosemide 80 mg tablet 80 mg PO DAILY 11/11/24 11/17/24 potassium chloride 20 mEq 40 meq PO DAILY 11/11/24 11/17/24 tablet,extended release(part/cryst) rosuvastatin 5 mg tablet 5 mg PO 3XWK 11/11/24 11/17/24 Previous Rx's Medication Instructions Recorded CPAP Supplies #1 ea 09/19/20 capsaicin 0.033 % topical cream 1 applic topical QID PRN pain 06/23/21 (Zostrix) #56.6 grams CPAP Machine #1 ea 10/21/22 Portable Oxygen #1 ea 08/16/23 losartan 50 mg tablet 50 mg PO DAILY 90 days #90 tabs 11/28/23 fluticasone propionate 50 2 spray intranasal QAM #16 grams 12/05/23 mcg/actuation nasal spray,suspension alfuzosin 10 mg tablet,extended 10 mg PO DAILY #90 tabs 02/15/24 release 24 hr (Uroxatral) dutasteride 0.5 mg capsule 0.5 mg PO DAILY #90 caps 02/15/24 (Avodart) carvedilol 6.25 mg tablet 6.25 mg PO BID #180 tabs 05/07/24 pramipexole 0.25 mg tablet 0.25 mg PO QPM PRN restless legs 06/04/24 #30 tabs albuterol sulfate 90 mcg/actuation 2 puff inhalation Q6H PRN 06/05/24 aerosol inhaler shortness of breath or wheezing #1 inhaler fluticasone 250 mcg-salmeterol 50 1 inh inhalation BID #3 Inhalers 06/20/24 mcg/dose blistr powdr for inhalation (Advair Diskus) levothyroxine 50 mcg tablet 50 mcg PO QAM #90 tabs 10/01/24 prednisone 20 mg tablet 40 mg (2 x 20 mg) PO DAILY 5 days 11/13/24 #10 tabs Results & Data (ED) Vital Signs Vital Signs - 24 hr 11/17/24 21:20 11/17/24 21:50 11/17/24 21:52 Temperature 36.7 C Temperature Source Oral Pulse Rate 68 Pulse Rate [Right Finger] Pulse Rate from SpO2 Sensor Respiratory Rate 22 Respiratory Effort / Characteristics Non-Labored Spontaneous Respiratory Depth Normal Respiratory Pattern Regular Blood Pressure 139/80 157/76 H Blood Pressure [Right Arm] Blood Pressure Mean 99 111 Blood Pressure Mean [Right Arm] Blood Pressure Position Sitting Pulse Oximetry 96 97 Oxygen Delivery Method Nasal Cannula Nasal Cannula Oxygen Flow Rate 3 3 Sepsis Recent Fever Within 48 Hours No Sepsis New/Unexplained Change in Mental Status N/A Sepsis Action Taken by Nursing No Action Required 11/17/24 22:09 11/17/24 22:33 11/17/24 23:00 Temperature Temperature Source Pulse Rate 77 66 Pulse Rate [Right Finger] 68 Pulse Rate from SpO2 Sensor 65 67 Respiratory Rate 20 33 H 16 Respiratory Effort / Characteristics Respiratory Depth Normal Respiratory Pattern Blood Pressure 147/72 H Blood Pressure [Right Arm] 138/80 Blood Pressure Mean 97 Blood Pressure Mean [Right Arm] 99 Blood Pressure Position Pulse Oximetry 96 96 97 Oxygen Delivery Method Nasal Cannula Nasal Cannula Nasal Cannula Oxygen Flow Rate 3 3 3 Sepsis Recent Fever Within 48 Hours Sepsis New/Unexplained Change in Mental Status Sepsis Action Taken by Nursing Laboratory Data 11/17/24 21:47 11/17/24 21:47 Lab Results 11/17/24 Range/Units 21:47 WBC 8.66 (4.8-10.8) K/ul RBC 4.66 L (4.70-6.10) M/uL Hgb 13.0 L (14.0-18.0) g/dl Hct 40.1 L (42.0-52.0) % MCV 86.1 (80.0-100.0) fL MCH 27.9 (25.0-34.0) pg MCHC 32.4 (32.0-36.0) g/dL RDW Std Deviation 43.5 (36.4-46.3) fL RDW Coeff of Jose Guadalupe 14.0 (11.5-14.5) % Plt Count 177 (130-400) K/uL MPV 10.4 (9.4-12.4) fL Immature Gran % (Auto) 1.6 % Neut % (Auto) 84.2 % Lymph % (Auto) 8.1 % [place] % (Auto) 5.9 % Eos % (Auto) 0.1 % Baso % (Auto) 0.1 % Neut # (Auto) 7.29 H (1.40-6.50) K/uL Lymph # (Auto) 0.70 L (1.20-3.40) K/uL [place] # (Auto) 0.51 (0.11-0.59) K/uL Eos # (Auto) 0.01 (0.00-0.50) K/uL Baso # (Auto) 0.01 (0.00-0.20) K/uL Immature Gran # (Auto) 0.14 (0.01-0.20) K/uL Sodium 138 (136-145) mmol/L Potassium 3.7 (3.5-5.1) mmol/L Chloride 99 (98-107) mmol/L Carbon Dioxide 32 (21-32) mmol/L Anion Gap 7 (3-11) BUN 15 (6-23) mg/dl Creatinine 0.73 (0.6-1.4) mg/dl Est Cr Clr Drug Dosing Not Reportable eGFR 93.13 BUN/Creatinine Ratio 20.5 H (10-20) Glucose 171 H (70-99(Fasting)) mg/dl Calcium 8.8 (8.6-10.3) mg/dl Total Bilirubin 0.4 (0.2-1.0) mg/dl AST 36 (13-39) U/L ALT 63 H (7-52) U/L Alkaline Phosphatase 75 (34-104) U/L Troponin I High Sens 62.9 H* (0-20) pg/ml Total Protein 7.0 (6.0-8.3) gm/dl Albumin 3.6 (3.4-5.0) gm/dl Globulin 3.4 (2.5-4.0) gm/dl Albumin/Globulin Ratio 1.1 (0.9-2) Lipase 24 (11-82) U/L Discharge Plan Visit Data Chief Complaint: Referred by Doctor Stated Complaint: REFERRRED BY DR PARHAM, DIFF BREATHING - XRAYS ED Provider: Sanket Fink Discharge Problem: Shortness of breath, Weakness, Elevated troponin Condition: Fair Forms Stand Alone Forms: [facility] [employer] Prescriptions Prescriptions: No Action (DME) CPAP Supplies Misc See Rx Instructions .MEDSUPPLY Qty: 1 0RF Rx Instructions: CPAP supplies. G47.33 (DME) CPAP Machine Misc See Rx Instructions .ROUTE .MEDSUPPLY Qty: 1 0RF Rx Instructions: NEW CPAP @10CM. CPAP SUPPLIES, mask of pts choice, filters, tubing, heated humidification,water chamber and compliance download capabilities [id number] . JOHN 99.CARE PLUS O2 (DME) Portable Oxygen Misc See Rx Instructions .MEDSUPPLY Qty: 1 0RF Rx Instructions: Oxygen 1 liters continuous via nasal cannula on exertion with portable concentrator. JOHN 99 losartan 50 mg tablet 50 mg PO DAILY 90 Days Qty: 90 3RF fluticasone propionate 50 mcg/actuation spray,suspension 2 spray INTNAS QAM Qty: 16 2RF Rx Instructions: administer into each nostril carvedilol 6.25 mg tablet 6.25 mg PO BID Qty: 180 3RF Rx Instructions: must administer with a meal/food pramipexole 0.25 mg tablet 0.25 mg PO QPM PRN (Reason: restless legs) Qty: 30 2RF Rx Instructions: administer 2 - 3 hours before bedtime albuterol sulfate 90 mcg/actuation HFA aerosol inhaler 2 puff inhalation Q6H PRN (Reason: shortness of breath or wheezing) Qty: 1 2RF levothyroxine 50 mcg tablet 50 mcg PO QAM Qty: 90 3RF prednisone 20 mg tablet 40 mg PO DAILY 5 Days Qty: 10 0RF Zostrix 0.033 % cream 1 applic topical QID PRN (Reason: pain) Qty: 56.6 0RF Rx Instructions: do not wash area for at least 30 min after application melatonin 10 mg tablet 10 mg PO HS PRN (Reason: Sleep) dutasteride [Avodart] 0.5 mg capsule 0.5 mg PO DAILY Qty: 90 3RF alfuzosin [Uroxatral] 10 mg tablet extended release 24 hr 10 mg PO DAILY Qty: 90 3RF Rx Instructions: After the same meal each day fluticasone propion-salmeterol [Advair Diskus] 250-50 mcg/dose blister with device 1 inh inhalation BID Qty: 3 3RF olopatadine 0.1 % drops 1 drp OPB DAILY PRN (Reason: Eye Irritation) Dose Instruction: PLACE 1 DROP INTO EACH EYE ONCE DAILY NEEDED FOR EYE IRRITATION trazodone 50 mg tablet 100 mg PO HS aspirin [Agapito Low Dose Aspirin] 81 mg Tablet,Delayed Release (Dr/Ec) 81 mg PO HS Centrum Silver 0.4-300-250 mg-mcg-mcg Tablet 1 tab PO QAM Vision Formula (with lutein) 1,000 unit-200 mg-60 unit-2 mg Tablet 1 tab PO DAILY omega 0-stx-qkn-fish oil [Fish Oil] 1,000 mg (120 mg-180 mg) Capsule 1,000 mg PO QAM coenzyme Q10 [CoQ-10] 100 mg capsule 200 mg PO QAM naproxen sodium [Aleve] 220 mg capsule 220 mg PO DAILY PRN (Reason: Pain) cetirizine [Zyrtec] 10 mg Tablet 10 mg PO QAM docusate sodium [Stool Softener] 100 mg Capsule 100 mg PO BID cholecalciferol (vitamin D3) [Vitamin D3] 125 mcg (5,000 unit) Tablet 5,000 unit PO DAILY cyanocobalamin (vitamin B-12) [Vitamin B-12] 1,000 mcg Tablet 1,000 mcg PO Q OTHER DAY Crenshaw Xl Suppliment 2 tab PO DAILY diltiazem HCl 360 mg capsule,extended release 24hr 360 mg PO DAILY potassium chloride 20 mEq tablet,ER particles/crystals 40 meq PO DAILY furosemide 80 mg tablet 80 mg PO DAILY allopurinol 300 mg tablet 300 mg PO DAILY rosuvastatin 5 mg tablet 5 mg PO 3XWK Rx Instructions: TAKES MON, WED, & FRI. diclofenac sodium 1 % gel 2 g topical QID PRN (Reason: Pain) Referrals Referrals: Broderick Chávez DO [Primary Care Provider] -
[2024-11-17 22:01] LABS: Hematocrit (blood only) 40.1 % (42.0-52.0); Hemoglobin 13.0 g/dl (14.0-18.0); Immature Granulocytes # (auto) 0.14 K/uL (0.01-0.20); Immature Granulocytes % (auto) 1.6 %; Mean Corpuscular Hemoglobin 27.9 pg (25.0-34.0); Mean Corpuscular Volume 86.1 fL (80.0-100.0); Platelet Count 177 K/uL (130-400); RDW Standard Deviation 43.5 fL (36.4-46.3); Red Blood Count 4.66 M/uL (4.70-6.10); White Blood Count 8.66 K/ul (4.8-10.8)
[2024-11-17 22:19] LABS: Alanine Aminotransferase 63 U/L (7-52); Albumin Globulin Ratio 1.1 (0.9-2); Alkaline Phosphatase 75 U/L (34-104); Anion Gap 7 (3-11); Bilirubin,Total 0.4 mg/dl (0.2-1.0); Blood Urea Nitrogen 15 mg/dl (6-23); Calcium 8.8 mg/dl (8.6-10.3); Carbon Dioxide 32 mmol/L (21-32); Chloride 99 mmol/L (98-107); Globulin 3.4 gm/dl (2.5-4.0); Glucose 171 mg/dl (70-99(Fasting)); Lipase 24 U/L (11-82); Potassium 3.7 mmol/L (3.5-5.1); Sodium 138 mmol/L (136-145); Total Protein 7.0 gm/dl (6.0-8.3)
--- NOTE | 2024-11-18 00:05 | History & Physical Report ---
Date of Service November 18, 2024 Assessment & Plan (1) COVID-19: (2) Elevated troponin: (3) Hypertension: (4) Hypothyroidism: (5) Obstructive sleep apnea: Plan 78yo male with Covid 19 infection (appx day 7), worsening SOB and LEIJA. #Covid - saturating well on his baseline 3L NC. No wheeze. CXR results pending but possibly new RUL infiltrate developing. Patient is afebrile, no leukocytosis -Admit to medical with telemetry -Maintain isolation precautions -Dexamethasone 6mg IV daily -Continue supplemental O2 as needed -Will initiate Azithromycin for now -Albuterol PRN #Elevated troponin - possibly secondary to volume overload. EKG with frequent PACs -Trend troponin #Thoracic aortic aneurysm -Continue Carvedilol and Crestor -Being monitored by Cardiology #Suspect some degree of volume overload, possible fluid retention from steroid use -Lasix 80mg IV daily #Hypertension -Continue Losartan 50mg po daily -Continue Diltiazem -Continue Carvedilol #Hyperlipidemia -Continue Crestor 5mg po 3x weekly #Hypothyroidism -Continue Synthroid 50mcg po qAM #ADILSON -CPAP qHS with oxygen Ppx - Lovenox 40mg BID History of Present Illness Chief Complaint: worsening shortness of breath Primary Care Provider: DO Aiden Delgado Digna is a 78yo male with history of ADILSON, Restrictive lung disease and chronic respiratory failure with hypoxia on 3L home O2 presenting from home with worsening shortness of breath. Patient was found to have Covid19 on 11/11/24. He was given Lasix 40mg IV and Dexamethasone 8mg IV in the ER and was ultimately discharged home on Prednisone. Patient has been taking the Prednisone which he completed today. Patient presents today with complaint of worsening SOB and LEIJA. He was noted to be hypoxic at home with saturations of 88% with ambulation. He also notes cough and orthopnea. No chest pain, palpitations, abdominal pain, nausea, vomiting, diarrhea In the ER he is afebrile, HD stable, adequate oxygenation on baseline 3L O2 Allergies Allergy/AdvReac Type Severity Reaction Status Date / Time atenolol Allergy Severe throat Verified 11/11/24 22:44 swelling ibuprofen Allergy Severe THROAT Verified 11/11/24 22:44 SWELLING Sulfa (Sulfonamide Allergy Severe Throat Verified 09/14/25 22:44 Antibiotics) tightness diclofenac [From Voltaren] Allergy Mild Unknown Verified 11/11/24 22:44 levofloxacin Allergy Unknown Unknown Verified 11/11/24 22:44 Home Medications Medication Instructions Recorded Confirmed Type aspirin 81 mg tablet,delayed 81 mg PO HS 12/24/17 11/17/24 History release (Agapito Low Dose Aspirin) cijtwhfr-prf-agntd acid 0.4 1 tab PO QAM 12/24/17 11/17/24 History mg-lycopene 300 mcg-lutein 250 mcg tablet (Centrum Silver) omega 7-uhx-rmr-fish oil 1,000 mg 1,000 mg PO QAM 12/24/17 11/17/24 History (120 mg-180 mg) capsule (Fish Oil) vit A 300 mcg-C 200 mg-E 27 1 tab PO DAILY 12/24/17 11/17/24 History mg-lutein 2 mg and minerals tablet (Vision Formula (with lutein)) CPAP Supplies #1 ea 09/19/20 11/17/24 Rx cetirizine 10 mg tablet (Zyrtec) 10 mg PO QAM 01/03/21 11/17/24 History capsaicin 0.033 % topical cream 1 applic topical QID PRN pain 06/23/21 11/17/24 Rx (Zostrix) #56.6 grams coenzyme Q10 100 mg capsule 200 mg PO QAM 08/11/22 11/17/24 History (CoQ-10) cholecalciferol (vitamin D3) 125 5,000 unit PO DAILY 09/12/22 11/17/24 History mcg (5,000 unit) tablet (Vitamin D3) docusate sodium 100 mg capsule 100 mg PO BID 09/12/22 11/17/24 History (Stool Softener) melatonin 10 mg tablet 10 mg PO HS PRN Sleep 09/29/22 11/17/24 History CPAP Machine #1 ea 10/21/22 11/17/24 Rx naproxen sodium 220 mg capsule 220 mg PO DAILY PRN Pain 03/02/23 11/17/24 History (Aleve) Portable Oxygen #1 ea 08/16/23 11/17/24 Rx losartan 50 mg tablet 50 mg PO DAILY 90 days #90 tabs 11/28/23 11/17/24 Rx fluticasone propionate 50 2 spray intranasal QAM #16 grams 12/05/23 11/17/24 Rx mcg/actuation nasal spray,suspension alfuzosin 10 mg tablet,extended 10 mg PO DAILY #90 tabs 02/15/24 11/17/24 Rx release 24 hr (Uroxatral) dutasteride 0.5 mg capsule 0.5 mg PO DAILY #90 caps 02/15/24 11/17/24 Rx (Avodart) carvedilol 6.25 mg tablet 6.25 mg PO BID #180 tabs 05/07/24 11/17/24 Rx pramipexole 0.25 mg tablet 0.25 mg PO QPM PRN restless legs 06/04/24 11/17/24 Rx #30 tabs albuterol sulfate 90 mcg/actuation 2 puff inhalation Q6H PRN 06/05/24 11/17/24 Rx aerosol inhaler shortness of breath or wheezing #1 inhaler fluticasone 250 mcg-salmeterol 50 1 inh inhalation BID #3 Inhalers 06/20/24 11/17/24 Rx mcg/dose blistr powdr for inhalation (Advair Diskus) olopatadine 0.1 % eye drops 1 drp OPB DAILY PRN Eye Irritation 09/19/24 11/17/24 History trazodone 50 mg tablet 100 mg PO HS 09/19/24 11/17/24 History levothyroxine 50 mcg tablet 50 mcg PO QAM #90 tabs 10/01/24 11/17/24 Rx [place] Xl Suppliment 2 tab PO DAILY 11/11/24 11/17/24 History allopurinol 300 mg tablet 300 mg PO DAILY 11/11/24 11/17/24 History cyanocobalamin (vitamin B-12) 1,000 mcg PO Q OTHER DAY 11/11/24 11/17/24 History 1,000 mcg tablet (Vitamin B-12) diclofenac sodium 1 % topical gel 2 g topical QID PRN Pain 11/11/24 11/17/24 History diltiazem HCl 360 mg capsule,24 360 mg PO DAILY 11/11/24 11/17/24 History hr,extended release furosemide 80 mg tablet 80 mg PO DAILY 11/11/24 11/17/24 History potassium chloride 20 mEq 40 meq PO DAILY 11/11/24 11/17/24 History tablet,extended release(part/cryst) rosuvastatin 5 mg tablet 5 mg PO 3XWK 11/11/24 11/17/24 History prednisone 20 mg tablet 40 mg (2 x 20 mg) PO DAILY 5 days 11/13/24 11/17/24 Rx #10 tabs Past Med/Surg History Problem List Elevated troponin (Acute) Weakness (Acute) Shortness of breath (Acute) COVID-19 (Acute) Prediabetes BPH (benign prostatic hyperplasia) Acute bacterial prostatitis Acute epididymitis (Acute) Acute UTI (urinary tract infection) (Acute) Sepsis (Acute) Hypoxia (Acute) Elevated troponin Chronic respiratory failure with hypoxia AMS (altered mental status) Testicle pain UTI (urinary tract infection) Sepsis Inflamed seborrheic keratosis Vitamin D deficiency Hypertension (Chronic) Bilateral leg edema (Chronic) Cerebrovascular small vessel disease (Chronic) Follows Dr. Scott Diastolic congestive heart failure (Chronic) Follows Dr. Scott Dyslipidemia (Chronic) Elevated prostate specific antigen (PSA) (Chronic) Enlarged aorta (Chronic) Gout (Chronic) Hyperglycemia (Chronic) Hypothyroidism (Chronic) Lumbar radiculopathy Lung nodule, solitary (Chronic) Obesity, morbid, BMI 40.0-49.9 (Chronic) Obstructive sleep apnea (Chronic) cpap Pulmonary hypertension (Chronic) Restless legs syndrome (Chronic) Shortness of breath on exertion (Chronic) Thoracic aortic aneurysm (Chronic) Follows Dr. Scott Cerebellar stroke (Chronic) ~ 1.5 years ago, tongue numbness on occassion - follows Dr. 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 Shobah Reid Polyneuropathy Urinary retention Peripheral edema Numbness of tongue on occasion per pt Nephrolithiasis Multiple pulmonary nodules Laryngopharyngeal reflux Internal hemorrhoids Diastolic dysfunction High blood pressure DJD (degenerative joint disease) of hip Surgical History Status post left foot surgery History of colonoscopy History of carpal tunnel surgery left History of ankle surgery H/O knee surgery left Family History Father Hypertension Heart disease Myocardial infarction Mother Heart disease Other Allergies Hearing loss Nephrolithiasis Denies family history of Ovarian cancer Prostate cancer Diabetes Breast cancer Lung cancer Colorectal cancer Stroke Social History Smoking Status: Former smoker Tobacco Type: Cigarettes and Smokeless Tobacco (Dip or Chew) Age Started Using Tobacco: 16; Age Quit Using Tobacco: 62; packs per day: 1; Cigarettes Per Day: 1pk / day; Second Hand Exposure: No; Do You Dip or Chew Tobacco: Yes; Hx Alcohol Use: No Hx Substance Use: No Preferred Language: Bengali Communication Ability: Effective Visual Impairment: Limited Hearing Ability: Use of Hearing Aid Collision Repair Technician Required: No Beliefs That Will Affect Care: None marital status: Current Living Situation: Spouse current occupational status: retired How many Children do You have: 2 Feels Safe at Home: Yes Childhood Exposure to Second-Hand Smoke: Yes Diet: regular caffeine: Yes Dental Care, Regularly: Yes Physical Activity Frequency: Does not Exercise Seatbelt Use: always Sunscreen Use: Yes Gender Identity: Male Assistive Devices: CPAP Review of Systems Review of Systems: All systems reviewed & are unremarkable except as noted in HPI & below Physical Exam Physical Exam: General: patient resting comfortably, NAD, non-toxic in appearance, AA&O x 4 Skin: warm, dry, intact, no rashes or lesions HEENT: NC/AT, PERRL, EOMI, anicteric sclera, conjunctiva without injection, external ear normal to inspection and nontender, nares patent, moist mucus membranes, dentition intact, no oropharyngeal lesions, neck supple, trachea midline, no LAD, no thyromegaly, no JVD Heart: +S1/S2, regular, no m/r/g Lungs: equal air entry bilaterally, no rales/rhonchi/wheezes Abd: +BS, soft, NT/ND, no masses/organomegaly/ascites Ext: warm, 2+ pulses in UE/LE bilaterally, no clubbing/cyanosis, 2+ edema bilateral LE L > R (baseline per patient and daughter) Neuro: nonfocal, patient AA&O x 4, speech intact, no facial droop, moving all extremities on command with equal strength 5/5 Results & Data Results & Data Vital Signs (Past 12 Hours) Vital Signs Temp Pulse Pulse Resp BP BP Pulse Ox 11/17/24 23:00 68 16 138/80 97 11/17/24 22:33 66 33 H 147/72 H 96 11/17/24 22:09 77 20 96 11/17/24 21:52 97 11/17/24 21:50 157/76 H 11/17/24 21:20 36.7 C 68 22 139/80 96 O2 Del Method O2 Flow Rate 11/17/24 23:00 Nasal Cannula 3 11/17/24 22:33 Nasal Cannula 3 11/17/24 22:09 Nasal Cannula 3 11/17/24 21:52 Nasal Cannula 3 11/17/24 21:50 11/17/24 21:20 Nasal Cannula 3 Laboratory Results Laboratory Results WBC 8.66 K/ul (4.8-10.8) 11/17/24 21:47 RBC 4.66 M/uL (4.70-6.10) L 11/17/24 21:47 Hgb 13.0 g/dl (14.0-18.0) L 11/17/24 21:47 Hct 40.1 % (42.0-52.0) L 11/17/24 21:47 MCV 86.1 fL (80.0-100.0) 11/17/24 21:47 MCH 27.9 pg (25.0-34.0) 11/17/24 21:47 MCHC 32.4 g/dL (32.0-36.0) 11/17/24 21:47 RDW Std Deviation 43.5 fL (36.4-46.3) 11/17/24 21:47 RDW Coeff of Jose Guadalupe 14.0 % (11.5-14.5) 11/17/24 21:47 Plt Count 177 K/uL (130-400) 11/17/24 21:47 MPV 10.4 fL (9.4-12.4) 11/17/24 21:47 Immature Gran % (Auto) 1.6 % 11/17/24 21:47 Neut % (Auto) 84.2 % 11/17/24 21:47 Lymph % (Auto) 8.1 % 11/17/24 21:47 Rich % (Auto) 5.9 % 11/17/24 21:47 Eos % (Auto) 0.1 % 11/17/24 21:47 Baso % (Auto) 0.1 % 11/17/24 21:47 Neut # (Auto) 7.29 K/uL (1.40-6.50) H 11/17/24 21:47 Lymph # (Auto) 0.70 K/uL (1.20-3.40) L 11/17/24 21:47 Rich # (Auto) 0.51 K/uL (0.11-0.59) 11/17/24 21:47 Eos # (Auto) 0.01 K/uL (0.00-0.50) 11/17/24 21:47 Baso # (Auto) 0.01 K/uL (0.00-0.20) 11/17/24 21:47 Immature Gran # (Auto) 0.14 K/uL (0.01-0.20) 11/17/24 21:47 Sodium 138 mmol/L (136-145) 11/17/24 21:47 Potassium 3.7 mmol/L (3.5-5.1) 11/17/24 21:47 Chloride 99 mmol/L (98-107) 11/17/24 21:47 Carbon Dioxide 32 mmol/L (21-32) 11/17/24 21:47 Anion Gap 7 (3-11) 11/17/24 21:47 BUN 15 mg/dl (6-23) 11/17/24 21:47 Creatinine 0.73 mg/dl (0.6-1.4) 11/17/24 21:47 Est Cr Clr Drug Dosing Not Reportable 11/17/24 21:47 eGFR 93.13 11/17/24 21:47 BUN/Creatinine Ratio 20.5 (10-20) H 11/17/24 21:47 Glucose 171 mg/dl (70-99(Fasting)) H 11/17/24 21:47 Calcium 8.8 mg/dl (8.6-10.3) 11/17/24 21:47 Total Bilirubin 0.4 mg/dl (0.2-1.0) 11/17/24 21:47 AST 36 U/L (13-39) 11/17/24 21:47 ALT 63 U/L (7-52) H 11/17/24 21:47 Alkaline Phosphatase 75 U/L (34-104) 11/17/24 21:47 Troponin I High Sens 67.5 pg/ml (0-20) H* 11/17/24 23:29 Total Protein 7.0 gm/dl (6.0-8.3) 11/17/24 21:47 Albumin 3.6 gm/dl (3.4-5.0) 11/17/24 21:47 Globulin 3.4 gm/dl (2.5-4.0) 11/17/24 21:47 Albumin/Globulin Ratio 1.1 (0.9-2) 11/17/24 21:47 Lipase 24 U/L (11-82) 11/17/24 21:47 Code Status & VTE Plan VTE Prophylaxis Plan VTE Prophylaxis will be ordered: Yes PG Care Time/CCT Total # of Minutes Spent Total Time Spent with Patient: Total time spent is greater than 50% in coordination of care (as documented) at patient's floor/unit and/or counseling patient: Coding Level of Care Code 61252 INT INP/OBS CARE 3/75MIN Diagnoses COVID-19 U07.1 Elevated troponin R79.89 Essential hypertension I10 Hypertension type: essential hypertension Hypothyroidism E03.9 Obstructive sleep apnea G47.33 (3) Hypertension Hypertension type: essential hypertension Qualified Code(s): I10 - Essential (primary) hypertension
--- NOTE | 2024-11-18 02:42 | XRay Report ---
Exam(s): XR CXR 1 VIEW EXAM: XR Chest, 1 View CLINICAL HISTORY: Chest pain, nonspecific. TECHNIQUE: Frontal view of the chest. COMPARISON: 11/11/2024 FINDINGS: Apical lordotic view. Cardiomegaly. Hypoventilation with bibasilar atelectasis. Infiltrate versus atelectasis in the right mid lung field. Probable small left pleural effusion. No pneumothorax. Bones are unchanged. IMPRESSION: Hypoventilation with bibasilar atelectasis. Infiltrate versus atelectasis in the right mid lung field. Probable small left pleural effusion. Electronically signed by: Ramu Guerrero M.D. 11/18/24 02:41 AM
[2024-11-18] MEDS ORDERED: DEXAMETHASONE SOD INJ 4 MG/ML VIAL IV STA (02:43)
[2024-11-18] MEDS ORDERED: PRAMIPEXOLE DIHYDROCHLO 0.25 MG TAB PO PRN (02:43)
[2024-11-18] MEDS: dexAMETHasone 6 MG in SYRINGE 0 ML IV ONE (03:07)
[2024-11-18] MEDS: LEVOTHYROXINE SODIUM 50 MCG TABLET PO SCH (06:00)
[2024-11-18] MEDS: CETIRIZINE HCL 10 MG TABLET PO SCH (08:08)
[2024-11-18] MEDS: AZITHROMYCIN 250 MG TAB PO SCH (08:08)
[2024-11-18] MEDS: FUROSEMIDE 40 MG/4 ML VIAL IV SCH (08:08)
[2024-11-18] MEDS: LOSARTAN POTASSIUM 50 MG TAB PO SCH (08:08)
[2024-11-18] MEDS: FLUTICASONE PROPIONATE NA SPR 16 GM BTL SCH (08:09)
[2024-11-18] MEDS: ENOXAPARIN INJ 40 MG/0.4 ML SYR SQ SCH (08:09)
[2024-11-18] MEDS: DOCUSATE SODIUM 100 MG CAP PO SCH (08:16)
[2024-11-18] MEDS ORDERED: DEXAMETHASONE SOD INJ 4 MG/ML VIAL IV SCH (09:00)
[2024-11-18] MEDS: ALBUTEROL HFA 8 GM INHALER INH PRN (09:12)
[2024-11-18] MEDS: FLUTICASONE/SALMETEROL 250/50 (ADVAIR) 14 PUFF/1 INHALER INH SCH (09:37)
[2024-11-18] MEDS: FLUTICASONE/VILANTEROL 200/25MCG 14 PUFFS/INHALER INH SCH (10:33)
--- NOTE | 2024-11-18 12:41 | Hospitalist Progress Note ---
Date of Service November 18, 2024 Assessment & Plan (1) COVID-19: (2) Elevated troponin: (3) Hypertension: (4) Hypothyroidism: (5) Obstructive sleep apnea: Plan 78yo male with Covid 19 infection (appx day 7), worsening SOB and LEIJA. #Covid - saturating well on his baseline 3L NC. No wheeze. CXR results pending but possibly new RUL infiltrate developing. Patient is afebrile, no leukocytosis -Admit to medical with telemetry -Maintain isolation precautions -Dexamethasone 6mg IV daily -Continue supplemental O2 as needed -Continue 5-day course of azithromycin - Outside the number for Paxlovid, ongoing supportive care #Elevated troponin - possibly secondary to volume overload. EKG with frequent PACs # Volume overload -Trend troponin, stable check x 2 recheck in AM, sooner with any change in s tatus -Continue Lasix 80 mg IV to goal diuresis of 23 additional liters then reassess -Respiratory support as above #Thoracic aortic aneurysm -Continue Carvedilol and Crestor -Being monitored by Cardiology - No abdominal pain or discomfort #Hypertension -Continue Losartan 50mg po daily -Continue Diltiazem -Continue Carvedilol #Hyperlipidemia -Continue Crestor 5mg po 3x weekly #Hypothyroidism -Continue Synthroid 50mcg po qAM #ADILSON -CPAP qHS with oxygen - Home equipment is in the room with the patient Ppx - Lovenox 40mg BID Admission and Anticipated Discharge Date Admission Date: November 18, 2024 Subjective Breathing much better this morning. Has been urinating quite a bit. No significant fevers chills. Still generalized malaise. Denies any chest pain no palpitations no dizziness or orthostasis. Answered several questions for patient and family in regards to COVID testing, timeframe and expected course of treatment. Otherwise no events or concerns per nursing. No new complaints per patient. Physical Exam Constitutional: Sitting at the bedside, no apparent distress oxygen in place Eyes: Mildly injected and sclera clear Neck: Trachea midline Respiratory: Good air movement throughout, fine crackles at the bases Cardiovascular: Regular rate and rhythm no murmurs rubs or gallops Gastrointestinal (Abdomen): Nontender nondistended Musculoskeletal: 1+ edema to lower extremities bilaterall y chronic venous stasis changes Skin: No rash present lower EXTR no pallor or Results & Data Results & Data Vital Signs (Past 12 Hours) Vital Signs Temp Pulse Pulse Resp BP BP Pulse Ox 11/18/24 10:41 36.2 C L 60 18 127/68 96 11/18/24 07:15 11/18/24 07:13 37.1 C 68 20 173/80 H 94 11/18/24 02:44 11/18/24 02:44 36.9 C 68 20 159/84 H 96 11/18/24 02:19 70 16 146/87 H 93 11/18/24 01:00 71 16 148/85 H 94 O2 Del Method O2 Flow Rate 11/18/24 10:41 Nasal Cannula 3.0 11/18/24 07:15 Nasal Cannula 3 11/18/24 07:13 CPAP 11/18/24 02:44 Nasal Cannula 3 11/18/24 02:44 Nasal Cannula 3 11/18/24 02:19 Nasal Cannula 3 11/18/24 01:00 Nasal Cannula 3 Laboratory Results 11/17/24 11/17/24 23:29 21:47 WBC 8.66 RBC 4.66 L Hgb 13.0 L Hct 40.1 L MCV 86.1 MCH 27.9 MCHC 32.4 RDW Std Deviation 43.5 RDW Coeff of Jose Guadalupe 14.0 Plt Count 177 MPV 10.4 Immature Gran % (Auto) 1.6 Neut % (Auto) 84.2 Lymph % (Auto) 8.1 [place] % (Auto) 5.9 Eos % (Auto) 0.1 Baso % (Auto) 0.1 Neut # (Auto) 7.29 H Lymph # (Auto) 0.70 L [place] # (Auto) 0.51 Eos # (Auto) 0.01 Baso # (Auto) 0.01 Immature Gran # (Auto) 0.14 Sodium 138 Potassium 3.7 Chloride 99 Carbon Dioxide 32 Anion Gap 7 BUN 15 Creatinine 0.73 Est Cr Clr Drug Dosing Not Reportable eGFR 93.13 BUN/Creatinine Ratio 20.5 H Glucose 171 H Calcium 8.8 Total Bilirubin 0.4 AST 36 ALT 63 H Alkaline Phosphatase 75 Troponin I High Sens 67.5 H* 62.9 H* Total Protein 7.0 Albumin 3.6 Globulin 3.4 Albumin/Globulin Ratio 1.1 Lipase 24 Hepatitis C Ab Screen Negative Diagnostic Findings Chest X-Ray 11/17/24 21:32 Exam(s): XR CXR 1 VIEW EXAM: XR Chest, 1 View CLINICAL HISTORY: Chest pain, nonspecific. TECHNIQUE: Frontal view of the chest. COMPARISON: 11/11/2024 FINDINGS: Apical lordotic view. Cardiomegaly. Hypoventilation with bibasilar atelectasis. Infiltrate versus atelectasis in the right mid lung field. Probable small left pleural effusion. No pneumothorax. Bones are unchanged. IMPRESSION: Hypoventilation with bibasilar atelectasis. Infiltrate versus atelectasis in the right mid lung field. Probable small left pleural effusion. Electronically signed by: Ramu Guerrero M.D. 11/18/24 02:41 AM PG Care Time/CCT Total # of Minutes Spent Total Time Spent with Patient: Total time spent is greater than 50% in coordination of care (as documented) at patient's floor/unit and/or counseling patient: Coding Level of Care Code 76312 SUB INP/OBS CARE 2/35MIN Diagnoses COVID-19 U07.1 Elevated troponin R79.89 Essential hypertension I10 Hypertension type: essential hypertension Hypothyroidism E03.9 Obstructive sleep apnea G47.33 (3) Hypertension Hypertension type: essential hypertension Qualified Code(s): I10 - Essential (primary) hypertension
--- NOTE | 2024-11-18 13:03 | Electrocardiogram Report ---
Test Reason : Blood Pressure : */* mmHG Vent. Rate : 73 BPM Atrial Rate : 73 BPM P-R Int : 196 ms QRS Dur : 80 ms QT Int : 442 ms P-R-T Axes : 81 -68 -30 degrees QTcB Int : 486 ms Sinus rhythm with Premature supraventricular complexes and with frequent Premature ventricular comple xes Left axis deviation Incomplete right bundle branch block Pulmonary disease pattern Nonspecific ST and T wave abnormality Abnormal ECG When compared with ECG of 11-Nov-2024 20:44, No Significant changes have occurred Confirmed by Meghna Singleton ([id number]) on 11/18/2024 1:02:52 PM Referred By: REFERRED SELF Confirmed By: Meghna Singleton
[2024-11-18] MEDS: ASPIRIN 81 MG ECTAB PO SCH (21:12)
[2024-11-19] MEDS: MELATONIN 3 MG TAB PO PRN (00:38)
[2024-11-19 06:48] LABS: Hematocrit (blood only) 37.3 % (42.0-52.0); Hemoglobin 12.6 g/dl (14.0-18.0); Immature Granulocytes # (auto) 0.11 K/uL (0.01-0.20); Immature Granulocytes % (auto) 1.0 %; Mean Corpuscular Hemoglobin 29.2 pg (25.0-34.0); Mean Corpuscular Volume 86.3 fL (80.0-100.0); Platelet Count 180 K/uL (130-400); RDW Standard Deviation 43.2 fL (36.4-46.3); Red Blood Count 4.32 M/uL (4.70-6.10); White Blood Count 11.32 K/ul (4.8-10.8)
[2024-11-19 07:24] LABS: Anion Gap 5.0 (3-11); Blood Urea Nitrogen 20.0 mg/dl (6-23); Calcium 8.6 mg/dl (8.6-10.3); Carbon Dioxide 34.0 mmol/L (21-32); Chloride 99.0 mmol/L (98-107); Creatinine Clr Calc Pharmacy 143.4 ml/min; Glucose 111.0 mg/dl (70-99(Fasting)); Potassium 3.7 mmol/L (3.5-5.1); Sodium 138.0 mmol/L (136-145)
[2024-11-19 07:43] VITALS: BP 149/75; RESP 20; TEMP 98.4; O2SAT 96
[2024-11-19] MEDS: ROSUVASTATIN CALCIUM 5 MG TAB PO SCH (08:05)
[2024-11-19] MEDS: dexAMETHasone 6 MG in SYRINGE 0 ML IV SCH (08:09)
[2024-11-19 12:25] VITALS: PULSE 67
--- NOTE | 2024-11-19 12:27 | Discharge Summary ---
Discharge Summary Date of Service November 19, 2024 Principal Dx & Hospital Course #1 = Principal Diagnosis (1) COVID-19: (2) Elevated troponin: (3) Hypertension: (4) Hypothyroidism: Plan 78yo male with A history of COPD, restrictive lung disease, chronic respiratory failure with hypoxemia on 2 LNC O2, prediabetes, BPH, HTN, TIA, AAA, HLD, hypothyroidism, ADILSON on CPAP, here with Covid 19 infection, worsening SOB, And acute on chronic respiratory failure with hypoxemia requiring 4L NC #Covid -19/Acute on chronic respiratory failure with hypoxemia/Acute on chronic HFpEF- saturating well on his baseline 2L NC. No wheeze. CXR results with new RUL infiltrate developing, As well as possible small left sided pleural effusion. Patient is afebrile, no leukocytosis, And much improved after being treated with IV dexamethasone and IV Lasix - Discharge to home with dexamethasone 6 mg p.o. daily x 8 more days and 1 more day of a 3-day course of azithromycin 500 mg p.o. daily -Continue supplemental O2 at 2LC Baseline O2 - Outside the number for Paxlovid Or Remdesivir -Continue home p.o. Lasix and potassium -Check CXR in 4 weeks to ensure resolution of infiltrates #Elevated troponin - possibly secondary to volume overload. EKG with frequent PACs, No chest pain. Troponin remained fairly stable in the 60s-70s -Trend troponin, stable check x 2 recheck in AM, sooner with any change in status #Thoracic aortic aneurysm/AAA- Most recent CT scan shows TAA measuring 5.1 cm and AAA measuring 4.4 cm -Continue Carvedilol and Crestor -Being monitored by Cardiology - No abdominal pain or discomfort -Recommend follow-up with vascular surgery as an outpatient #Hypertension-BPs are controlled to mildly elevated here -Continue Losartan 50mg po daily -Continue Diltiazem -Continue Carvedilol #Hyperlipidemia -Continue Crestor 5mg po 3x weekly #Hypothyroidism-recent TSH normal i n08/2024 -Continue Synthroid 50mcg po qAM #ADILSON -CPAP qHS with oxygen #BPH-continue home dutasteride,uroxatral Ppx - Lovenox 40mg BID Dispo-stable for dc to home, PT worked with pt and stable for dc to home Notes For Next Care Provider Check CXR in 4-6 weeks to ensure resolution of infiltrates Medication Changes From Visit Added dexamethasone and azithromycin Admission HPI Per Admitting Provider Aiden Sawyer is a 78yo male with history of ADILSON, Restrictive lung disease and chronic respiratory failure with hypoxia on 3L home O2 presenting from home with worsening shortness of breath. Patient was found to have Covid19 on 11/11/24. He was given Lasix 40mg IV and Dexamethasone 8mg IV in the ER and was ultimately discharged home on Prednisone. Patient has been taking the Prednisone which he completed today. Patient presents today with complaint of worsening SOB and LEIJA. He was noted to be hypoxic at home with saturations of 88% with ambulation. He also notes cough and orthopnea. No chest pain, palpitations, abdominal pain, nausea, vomiting, diarrhea In the ER he is afebrile, HD stable, adequate oxygenation on baseline 3L O2 Discharge Exam Constitutional WD/WN, vitals as above Respiratory normal respiratory effort, lungs clear to auscultation Cardiovascular Rate/Rhythm: regular rate and regular rhythm Heart Sounds: no murmur Extremities: + edema (1+ pitting edema ankles to the mid tibia bilaterally) Gastrointestinal (Abdomen) normal bowel sounds, soft, nontender, no hepatosplenomegaly Discharge Plan Discharge Items Patient Disposition: Home - Self-Care Reason For Visit: COVID 19 HYPOXIA Discharge Diagnosis: COVID-19 Acute on chronic respiratory failure with hypoxia Condition on Discharge: Good Activity: Resume your previous activity Non-emergency contact: Primary Care Provider Call non-emergency contact if: you have any medication questions and your symptoms worsen Follow-up/Referrals: Broderick Chávez DO [Primary Care Provider] - (Follow-up within 1-2 weeks- Please call for an appointment) Diet: Heart Healthy Addtl Attending Provider Instructions: You were admitted with COVID-19 and low oxygen levels. This improved with treating you with steroids and antibiotics. Please finish out 8 more days of the steroid pill called dexamethasone. Please finish out 1 more day of the antibiotic called azithromycin. Please have a repeat chest x-ray performed in 4 to 6 weeks to ensure that the pneumonia is resolved. Pending Studies at Discharge: No Stand-Alone Forms: My [employer], Smoking Cessation Medications and DC Order Prescriptions: New azithromycin 500 mg tablet 500 mg PO DAILY Qty: 1 0RF dexamethasone 6 mg tablet 6 mg PO DAILY Qty: 8 0RF Continued (DME) CPAP Supplies Misc See Rx Instructions .MEDSUPPLY Qty: 1 0RF Rx Instructions: CPAP supplies. G47.33 (DME) CPAP Machine Misc See Rx Instructions .ROUTE .MEDSUPPLY Qty: 1 0RF Rx Instructions: NEW CPAP @10CM. CPAP SUPPLIES, mask of pts choice, filters, tubing, heated humidification,water chamber and compliance download capabilities [id number] . JOHN 99.[employer] O2 (DME) Portable Oxygen Misc See Rx Instructions .MEDSUPPLY Qty: 1 0RF Rx Instructions: Oxygen 1 liters continuous via nasal cannula on exertion with portable concentrator. JOHN 99 losartan 50 mg tablet 50 mg PO DAILY 90 Days Qty: 90 3RF fluticasone propionate 50 mcg/actuation spray,suspension 2 spray INTNAS QAM Qty: 16 2RF Rx Instructions: administer into each nostril carvedilol 6.25 mg tablet 6.25 mg PO BID Qty: 180 3RF Rx Instructions: must administer with a meal/food pramipexole 0.25 mg tablet 0.25 mg PO QPM PRN (Reason: restless legs) Qty: 30 2RF Rx Instructions: administer 2 - 3 hours before bedtime albuterol sulfate 90 mcg/actuation HFA aerosol inhaler 2 puff inhalation Q6H PRN (Reason: shortness of breath or wheezing) Qty: 1 2RF levothyroxine 50 mcg tablet 50 mcg PO QAM Qty: 90 3RF Zostrix 0.033 % cream 1 applic topical QID PRN (Reason: pain) Qty: 56.6 0RF Rx Instructions: do not wash area for at least 30 min after application melatonin 10 mg tablet 10 mg PO HS PRN (Reason: Sleep) dutasteride [Avodart] 0.5 mg capsule 0.5 mg PO DAILY Qty: 90 3RF alfuzosin [Uroxatral] 10 mg tablet extended release 24 hr 10 mg PO DAILY Qty: 90 3RF Rx Instructions: After the same meal each day fluticasone propion-salmeterol [Advair Diskus] 250-50 mcg/dose blister with device 1 inh inhalation BID Qty: 3 3RF olopatadine 0.1 % drops 1 drp OPB DAILY PRN (Reason: Eye Irritation) Dose Instruction: PLACE 1 DROP INTO EACH EYE ONCE DAILY NEEDED FOR EYE IRRITATION trazodone 50 mg tablet 100 mg PO HS aspirin [Agapito Low Dose Aspirin] 81 mg Tablet,Delayed Release (Dr/Ec) 81 mg PO HS Centrum Silver 0.4-300-250 mg-mcg-mcg Tablet 1 tab PO QAM Vision Formula (with lutein) 1,000 unit-200 mg-60 unit-2 mg Tablet 1 tab PO DAILY omega 1-ele-afw-fish oil [Fish Oil] 1,000 mg (120 mg-180 mg) Capsule 1,000 mg PO QAM coenzyme Q10 [CoQ-10] 100 mg capsule 200 mg PO QAM naproxen sodium [Aleve] 220 mg capsule 220 mg PO DAILY PRN (Reason: Pain) cetirizine [Zyrtec] 10 mg Tablet 10 mg PO QAM docusate sodium [Stool Softener] 100 mg Capsule 100 mg PO BID cholecalciferol (vitamin D3) [Vitamin D3] 125 mcg (5,000 unit) Tablet 5,000 unit PO DAILY cyanocobalamin (vitamin B-12) [Vitamin B-12] 1,000 mcg Tablet 1,000 mcg PO Q OTHER DAY [place] Xl Suppliment 2 tab PO DAILY diltiazem HCl 360 mg capsule,extended release 24hr 360 mg PO DAILY potassium chloride 20 mEq tablet,ER particles/crystals 40 meq PO DAILY furosemide 80 mg tablet 80 mg PO DAILY allopurinol 300 mg tablet 300 mg PO DAILY rosuvastatin 5 mg tablet 5 mg PO [id number] Rx Instructions: TAKES MON, WED, & FRI. diclofenac sodium 1 % gel 2 g topical QID PRN (Reason: Pain) Discontinued prednisone 20 mg tablet 40 mg PO DAILY 5 Days Qty: 10 0RF Discharge Orders: Discharge Order (Routine); Ordered 11/19/24 Ordered By: Susanne Aguilera Admission Data Admit Date/Time: 11/17/24 23:59 Attending Provider: Susanne Aguilera Admit Provider: Michelle Almonte Primary Care Provider: Broderick Chávez Other Providers: Michelle Almonte Hospital Stay Data Consultations 11/17/24 22:45 ED Decision to Admit Stat Pending Results Patient Have Any Pending Studies at Discharge: No Discharge Instructions Given to Patient (Per Discharging Provider) You were admitted with COVID-19 and low oxygen levels. This improved with treating you with steroids and antibiotics. Please finish out 8 more days of the steroid pill called dexamethasone. Please finish out 1 more day of the antibiotic called azithromycin. Please have a repeat chest x-ray performed in 4 to 6 weeks to ensure that the pneumonia is resolved. Total Time Total Time Spent Total Time Spent (In Minutes): 35 min Total Time Includes: Examination of the Patient, Discharge Planning and Medication Reconciliation Coding Level of Care Code 83316 INP/OBS DISCH >30 MIN Diagnoses COVID-19 U07.1 Elevated troponin R79.89 Essential hypertension I10 Hypertension type: essential hypertension Hypothyroidism E03.9
== END 2024-11-19 13:01 | disposition home or self-care (01) | DRG 177 ==
LOC: SUATTDRO → ED 21:10 → 2S 11-18 01:03 → SUATTDRO 11-18 01:03 → 2S 11-18 02:19

== ENCOUNTER 2024-12-01 13:09 | Observation (INO) ==
--- NOTE | 2024-12-01 13:41 | Emergency Department Note ---
History of Present Illness General Chief complaint: Catheter Replacement Stated complaint: CLOGGED CATHETER Time Seen by Provider: 12/01/24 13:25 History of Present Illness Provider complaint: Catheter malfunction Maximum Pain Intensity: 6 79-year-old male presents emergency department for catheter malfunction. Patient states he went home last night after being in the emergency department again and this morning his catheter was not draining properly. Patient reports lower abdominal pain again. Home Medications Medication Instructions Recorded Confirmed Type aspirin 81 mg tablet,delayed 81 mg PO HS 12/24/17 12/01/24 History release (Agapito Low Dose Aspirin) iglswwtr-fjs-fhqkz acid 0.4 1 tab PO QAM 12/24/17 12/01/24 History mg-lycopene 300 mcg-lutein 250 mcg tablet (Centrum Silver) omega 4-urk-gvw-fish oil 1,000 mg 1,000 mg PO QAM 12/24/17 12/01/24 History (120 mg-180 mg) capsule (Fish Oil) vit A 300 mcg-C 200 mg-E 27 1 tab PO DAILY 12/24/17 12/01/24 History mg-lutein 2 mg and minerals tablet (Vision Formula (with lutein)) CPAP Supplies #1 ea 09/19/20 11/17/24 Rx cetirizine 10 mg tablet (Zyrtec) 10 mg PO QAM 01/03/21 12/01/24 History capsaicin 0.033 % topical cream 1 applic topical QID PRN pain 06/23/21 12/01/24 Rx (Zostrix) #56.6 grams coenzyme Q10 100 mg capsule 200 mg PO QAM 08/11/22 12/01/24 History (CoQ-10) cholecalciferol (vitamin D3) 125 5,000 unit PO DAILY 09/12/22 12/01/24 History mcg (5,000 unit) tablet (Vitamin D3) docusate sodium 100 mg capsule 100 mg PO BID 09/12/22 12/01/24 History (Stool Softener) melatonin 10 mg tablet 10 mg PO HS PRN Sleep 09/29/22 12/01/24 History CPAP Machine #1 ea 10/21/22 11/17/24 Rx naproxen sodium 220 mg capsule 220 mg PO DAILY PRN Pain 03/02/23 12/01/24 History (Aleve) Portable Oxygen #1 ea 08/16/23 11/17/24 Rx losartan 50 mg tablet 50 mg PO DAILY 90 days #90 tabs 11/28/23 12/01/24 Rx fluticasone propionate 50 2 spray intranasal QAM #16 grams 12/05/23 12/01/24 Rx mcg/actuation nasal spray,suspension alfuzosin 10 mg tablet,extended 10 mg PO DAILY #90 tabs 02/15/24 12/01/24 Rx release 24 hr (Uroxatral) dutasteride 0.5 mg capsule 0.5 mg PO DAILY #90 caps 02/15/24 12/01/24 Rx (Avodart) carvedilol 6.25 mg tablet 6.25 mg PO BID #180 tabs 05/07/24 12/01/24 Rx pramipexole 0.25 mg tablet 0.25 mg PO QPM PRN restless legs 06/04/24 12/01/24 Rx #30 tabs albuterol sulfate 90 mcg/actuation 2 puff inhalation Q6H PRN 06/05/24 12/01/24 Rx aerosol inhaler shortness of breath or wheezing #1 inhaler fluticasone 250 mcg-salmeterol 50 1 inh inhalation BID #3 Inhalers 06/20/24 12/01/24 Rx mcg/dose blistr powdr for inhalation (Advair Diskus) olopatadine 0.1 % eye drops 1 drp OPB DAILY PRN Eye Irritation 09/19/24 12/01/24 History trazodone 50 mg tablet 100 mg PO HS 09/19/24 12/01/24 History levothyroxine 50 mcg tablet 50 mcg PO QAM #90 tabs 10/01/24 12/01/24 Rx Ovid Xl Suppliment 2 tab PO DAILY 11/11/24 12/01/24 History allopurinol 300 mg tablet 300 mg PO DAILY 11/11/24 12/01/24 History cyanocobalamin (vitamin B-12) 1,000 mcg PO Q OTHER DAY 11/11/24 12/01/24 History 1,000 mcg tablet (Vitamin B-12) diclofenac sodium 1 % topical gel 2 g topical QID PRN Pain 11/11/24 12/01/24 History diltiazem HCl 360 mg capsule,24 360 mg PO DAILY 11/11/24 12/01/24 History hr,extended release furosemide 80 mg tablet 80 mg PO DAILY 11/11/24 12/01/24 History potassium chloride 20 mEq 40 meq PO DAILY 11/11/24 12/01/24 History tablet,extended release(part/cryst) rosuvastatin 5 mg tablet 5 mg PO 3XWK 11/11/24 12/01/24 History benzonatate 200 mg capsule 200 mg PO TID PRN cough #30 caps 11/21/24 12/01/24 Rx Allergies Allergy/AdvReac Type Severity Reaction Status Date / Time atenolol Allergy Severe throat Verified 12/01/24 16:15 swelling ibuprofen Allergy Severe THROAT Verified 12/01/24 16:15 SWELLING Sulfa (Sulfonamide Allergy Severe Throat Verified 12/01/24 16:15 Antibiotics) tightness diclofenac [From Voltaren] Allergy Mild Unknown Verified 12/01/24 16:15 levofloxacin Allergy Unknown Unknown Verified 12/01/24 16:15 Past Med/Surg History Problem List Malfunction of Cueva catheter (Acute) Acute urinary retention (Acute) COVID-19 (Acute) Prediabetes BPH (benign prostatic hyperplasia) Acute bacterial prostatitis Acute epididymitis (Acute) Acute UTI (urinary tract infection) (Acute) Sepsis (Acute) Hypoxia (Acute) Elevated troponin Chronic respiratory failure with hypoxia AMS (altered mental status) Testicle pain UTI (urinary tract infection) Sepsis Inflamed seborrheic keratosis Vitamin D deficiency Hypertension (Chronic) Bilateral leg edema (Chronic) Cerebrovascular small vessel disease (Chronic) Follows Dr. Scott Diastolic congestive heart failure (Chronic) Follows Dr. Scott Dyslipidemia (Chronic) Elevated prostate specific antigen (PSA) (Chronic) Enlarged aorta (Chronic) Gout (Chronic) Hyperglycemia (Chronic) Hypothyroidism (Chronic) Lumbar radiculopathy Lung nodule, solitary (Chronic) Obesity, morbid, BMI 40.0-49.9 (Chronic) Obstructive sleep apnea (Chronic) cpap Pulmonary hypertension (Chronic) Restless legs syndrome (Chronic) Shortness of breath on exertion (Chronic) Thoracic aortic aneurysm (Chronic) Follows Dr. Scott Cerebellar stroke (Chronic) ~ 1.5 years ago, tongue numbness on occassion - follows Dr. 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 Shobha Reid Polyneuropathy Urinary retention Peripheral edema Numbness of tongue on occasion per pt Nephrolithiasis Multiple pulmonary nodules Laryngopharyngeal reflux Internal hemorrhoids Diastolic dysfunction High blood pressure DJD (degenerative joint disease) of hip Surgical History Status post left foot surgery History of colonoscopy History of carpal tunnel surgery left History of ankle surgery H/O knee surgery left Family History Father Hypertension Heart disease Myocardial infarction Mother Heart disease Other Allergies Hearing loss Nephrolithiasis Denies family history of Ovarian cancer Prostate cancer Diabetes Breast cancer Lung cancer Colorectal cancer Stroke Social History Smoking Status: Former smoker Tobacco Type: Cigarettes and Smokeless Tobacco (Dip or Chew) Age Started Using Tobacco: 16; Age Quit Using Tobacco: 62; packs per day: 1; Cigarettes Per Day: 1pk / day; Second Hand Exposure: No; Do You Dip or Chew Tobacco: No; Hx Alcohol Use: No Hx Substance Use: No Preferred Language: Tristanian Communication Ability: Effective Visual Impairment: Limited Hearing Ability: Use of Hearing Aid Sponge Fisherman Required: No Beliefs That Will Affect Care: Uatsdin Uatsdin Beliefs: Religion marital status: Current Living Situation: Spouse current occupational status: retired How many Children do You have: 2 Feels Safe at Home: Yes Childhood Exposure to Second-Hand Smoke: Yes Diet: regular caffeine: Yes Dental Care, Regularly: Yes Physical Activity Frequency: Does not Exercise Seatbelt Use: always Sunscreen Use: Yes Gender Identity: Male Assistive Devices: CPAP, Denture - Upper, Hearing Aid - Bilateral, Oxygen - Continuous, Walker and Wheelchair Physical Exam Vital Signs Vital Signs - 24 hr 12/01/24 13:19 12/01/24 15:00 12/01/24 15:19 Temperature 36.4 C L Temperature Source Temporal Artery Scan Pulse Rate 86 72 Pulse Rate [Apical] 68 Respiratory Rate 16 16 Respiratory Effort / Characteristics Non-Labored Spontaneous Respiratory Depth Normal Normal Respiratory Pattern Regular Blood Pressure 157/83 H Blood Pressure [Right Arm] 141/80 H Blood Pressure Mean 107 Blood Pressure Mean [Right Arm] 100 Blood Pressure Position Sitting Pulse Oximetry 96 96 Oxygen Delivery Method Room Air Nasal Cannula Oxygen Flow Rate 3 Sepsis Recent Fever Within 48 Hours No Sepsis New/Unexplained Change in Mental Status No Sepsis Action Taken by Nursing No Action Required 12/01/24 17:00 Temperature Temperature Source Pulse Rate Pulse Rate [Apical] 69 Respiratory Rate 16 Respiratory Effort / Characteristics Respiratory Depth Respiratory Pattern Blood Pressure Blood Pressure [Right Arm] 139/87 Blood Pressure Mean Blood Pressure Mean [Right Arm] 104 Blood Pressure Position Pulse Oximetry 95 Oxygen Delivery Method Room Air Oxygen Flow Rate Sepsis Recent Fever Within 48 Hours Sepsis New/Unexplained Change in Mental Status Sepsis Action Taken by Nursing Physical Exam CV: Normal rate, regular rhythm, normal heart sounds and intact distal pulses. There is no peripheral edema. Palpable radial pulses bue. PULM/CHEST: Rhonchi bilaterally. ABD: The abdomen is soft. Obese. There is suprapubic tenderness to palpation. : Cueva catheter in place. Scant amount of bloody urine in the Cueva catheter and bag Course Course 1325: The patient was evaluated in room A4. A complete history and physical exam was performed Cardiac monitoring: An order was placed for continuous cardiac monitoring. The monitor shows a rate of 80 with sinus rhythm interpreted by az 1432: Patient's white blood cell count is at 16. 2 days ago his white blood cell count was 14. At discharge at the end of October the patient's white blood cell count was 11. Will obtain blood cultures lactic acid and procalcitonin. 1537: Vital signs stable. Lactic acid and procalcitonin within normal limits. Discussed case with urology on-call Dr. Tabor. He states to obtain a CT scan. He states given the patient's third visit to the emergency department last 3 days, admit for cystoscopy tomorrow. 1558: Spoke with Dr. Hugo [facility] hospitalist team who will admit the patient. Medical Decision Making Laboratory Data Attestation: I reviewed the patient's lab results. 12/01/24 14:05 12/01/24 14:41 Lab Results 12/01/24 12/01/24 12/01/24 Range/Units 14:05 14:41 14:55 WBC 16.18 H (4.8-10.8) K/ul RBC 4.70 (4.70-6.10) M/uL Hgb 13.2 L (14.0-18.0) g/dl Hct 40.7 L (42.0-52.0) % MCV 86.6 (80.0-100.0) fL MCH 28.1 (25.0-34.0) pg MCHC 32.4 (32.0-36.0) g/dL RDW Std Deviation 45.8 (36.4-46.3) fL RDW Coeff of Jose Guadalupe 14.6 H (11.5-14.5) % Plt Count 136 (130-400) K/uL MPV 10.6 (9.4-12.4) fL Immature Gran % (Auto) 1.1 % Neut % (Auto) 88.6 % Lymph % (Auto) 4.9 % Mcdonald % (Auto) 4.7 % Eos % (Auto) 0.6 % Baso % (Auto) 0.1 % Neut # (Auto) 14.33 H (1.40-6.50) K/uL Lymph # (Auto) 0.79 L (1.20-3.40) K/uL Mcdonald # (Auto) 0.76 H (0.11-0.59) K/uL Eos # (Auto) 0.10 (0.00-0.50) K/uL Baso # (Auto) 0.02 (0.00-0.20) K/uL Immature Gran # (Auto) 0.18 (0.01-0.20) K/uL Sodium Cancelled 136 Potassium Cancelled 4.0 Chloride Cancelled 100 Carbon Dioxide Cancelled 31 Anion Gap Cancelled 5 BUN Cancelled 15 Creatinine Cancelled 0.58 L Est Cr Clr Drug Dosing Cancelled 153.3 eGFR Cancelled 99.21 BUN/Creatinine Ratio Cancelled 25.9 H Glucose Cancelled 146 H Lactate 1.4 (0.4-2.0) mmol/L Calcium Cancelled 8.4 L Magnesium Cancelled 2.3 Procalcitonin 0.03 (0-0.5) ng/ml Urine Color Dark Yellow Urine Appearance Cloudy A (Clear) Urine pH 7.0 (4.5-7.5) Ur Specific [place] 1.020 (1.000-1.030) Urine Protein 2+ H (Negative) Urine Glucose (UA) Negative (Negative) Urine Ketones Negative (Negative) Urine Blood 3+ H (Negative) Urine Nitrite Negative (Negative) Urine Bilirubin Negative (Negative) Urine Urobilinogen Negative (Negative) Ur Leukocyte Esterase 1+ H (Negative) Urine WBC (Auto) 11-20 H (0-5) /hpf Urine RBC (Auto) >20 H (0-2) /hpf U Hyaline Cast (Auto) 0-2 (0-2) /lpf U Epithel Cells (Auto) 0-2 (0-2) /hpf Urine Bacteria (Auto) None Seen (None Seen) Urine Comment Imaging Data Attestation: I personally reviewed and interpreted this imaging study as follows: My Impression: Chest x-ray: No significant change from the chest x-ray in November 25 2024 Radiologist's Impression: Chest X-Ray 12/01/24 14:31 Exam: Chest one view portable. Reason for exam: Weakness Previous studies: 11/25/2024. FINDINGS: Suboptimal inspiration has been made. Heart remains mildly enlarged. Mild basilar atelectasis persists. Otherwise no new acute infiltrate or edema is seen. IMPRESSION: 1. Suboptimal inspiration. 2. Stable cardiomegaly. 3. Mild bibasilar atelectasis. Electronically signed by Filiberto Torres 12-01-2024 3:14 PM Abdomen/Pelvis CT 12/01/24 15:37 EXAMINATION: CT of the abdomen and pelvis performed without contrast TECHNIQUE: Helical CT images from the lung bases through the symphysis pubis were obtained without contrast. Coronal and sagittal reformatted images were generated at a workstation for further assessment. Dose reduction techniques were achieved by using automatic exposure control and/or adjustment of mA and/or kV according to patient size and/or use of iterative reconstruction technique. COMPARISON: None HISTORY: Abdominal pain FINDINGS: Lower chest: No consolidation. No pleural effusion or pneumothorax. Liver: No suspicious liver lesions. Gallbladder: No gallstones. No evidence of acute cholecystitis. Spleen: Normal size. Pancreas: No suspicious pancreatic lesions. The pancreatic duct is not dilated. Adrenal glands: No adrenal nodules. Kidneys: No hydronephrosis or obstructing renal stones. Right-sided renal cyst. Bladder / Pelvic organs: The prostate gland is significantly enlarged. A Cueva catheter is in place with decompression of the urinary bladder.. Bowel: No bowel obstruction. No abnormal bowel wall thickening. The appendix is unremarkable. Lymph nodes: No retroperitoneal, mesenteric, or pelvic lymphadenopathy. Peritoneum / Retroperitoneum: No free fluid or air within the abdomen. Vessels: Abdominal aortic aneurysm measuring 4.3 cm AP diameter, on image 58. Moderate aortoiliac calcification. Bones and soft tissues: No suspicious lesion in the bones. Right hip arthroplasty. IMPRESSION: No visualized acute process. Prostatomegaly. Electronically signed by Davian Vanegas 12-01-2024 4:49 PM [facility] Narrative 1325: The patient was evaluated in room A4. A complete history and physical exam was performed Cardiac monitoring: An order was placed for continuous cardiac monitoring. The monitor shows a rate of 80 with sinus rhythm interpreted by az 1432: Patient's white blood cell count is at 16. 2 days ago his white blood cell count was 14. At discharge at the end of October the patient's white blood cell count was 11. Will obtain blood cultures lactic acid and procalcitonin. 1537: Vital signs stable. Lactic acid and procalcitonin within normal limits. Discussed case with urology on-call Dr. Tabor. He states to obtain a CT scan. He states given the patient's third visit to the emergency department last 3 days, admit for cystoscopy tomorrow. 1558: Spoke with Dr. Hugo [facility] hospitalist team who will admit the patient. Impression & Plan Acute urinary retention, Malfunction of Cueva catheter Discharge Plan Visit Data Chief Complaint: Catheter Replacement Stated Complaint: CLOGGED CATHETER ED Provider: Radames Merritt Discharge Problem: Acute urinary retention, Malfunction of Cueva catheter Patient Disposition: Being Evaluated by Hospitalist Condition: Fair Forms Stand Alone Forms: [facility] [address] Prescriptions Prescriptions: No Action (DME) CPAP Supplies Misc See Rx Instructions .MEDSUPPLY Qty: 1 0RF Rx Instructions: CPAP supplies. G47.33 (DME) CPAP Machine Misc See Rx Instructions .ROUTE .MEDSUPPLY Qty: 1 0RF Rx Instructions: NEW CPAP @10CM. CPAP SUPPLIES, mask of pts choice, filters, tubing, heated humidification,water chamber and compliance download capabilities LON99 . JOHN 99.CARE PLUS O2 (DME) Portable Oxygen Misc See Rx Instructions .MEDSUPPLY Qty: 1 0RF Rx Instructions: Oxygen 1 liters continuous via nasal cannula on exertion with portable concentrator. JOHN 99 losartan 50 mg tablet 50 mg PO DAILY 90 Days Qty: 90 3RF fluticasone propionate 50 mcg/actuation spray,suspension 2 spray INTNAS QAM Qty: 16 2RF Rx Instructions: administer into each nostril carvedilol 6.25 mg tablet 6.25 mg PO BID Qty: 180 3RF Rx Instructions: must administer with a meal/food pramipexole 0.25 mg tablet 0.25 mg PO QPM PRN (Reason: restless legs) Qty: 30 2RF Rx Instructions: administer 2 - 3 hours before bedtime albuterol sulfate 90 mcg/actuation HFA aerosol inhaler 2 puff inhalation Q6H PRN (Reason: shortness of breath or wheezing) Qty: 1 2RF levothyroxine 50 mcg tablet 50 mcg PO QAM Qty: 90 3RF benzonatate 200 mg capsule 200 mg PO TID PRN (Reason: cough) Qty: 30 0RF Zostrix 0.033 % cream 1 applic topical QID PRN (Reason: pain) Qty: 56.6 0RF Rx Instructions: do not wash area for at least 30 min after application melatonin 10 mg tablet 10 mg PO HS PRN (Reason: Sleep) dutasteride [Avodart] 0.5 mg capsule 0.5 mg PO DAILY Qty: 90 3RF alfuzosin [Uroxatral] 10 mg tablet extended release 24 hr 10 mg PO DAILY Qty: 90 3RF Rx Instructions: After the same meal each day fluticasone propion-salmeterol [Advair Diskus] 250-50 mcg/dose blister with device 1 inh inhalation BID Qty: 3 3RF olopatadine 0.1 % drops 1 drp OPB DAILY PRN (Reason: Eye Irritation) Dose Instruction: PLACE 1 DROP INTO EACH EYE ONCE DAILY NEEDED FOR EYE IRRITATION trazodone 50 mg tablet 100 mg PO HS aspirin [Agapito Low Dose Aspirin] 81 mg Tablet,Delayed Release (Dr/Ec) 81 mg PO HS Centrum Silver 0.4-300-250 mg-mcg-mcg Tablet 1 tab PO QAM Vision Formula (with lutein) 1,000 unit-200 mg-60 unit-2 mg Tablet 1 tab PO DAILY omega 9-cja-pgj-fish oil [Fish Oil] 1,000 mg (120 mg-180 mg) Capsule 1,000 mg PO QAM coenzyme Q10 [CoQ-10] 100 mg capsule 200 mg PO QAM naproxen sodium [Aleve] 220 mg capsule 220 mg PO DAILY PRN (Reason: Pain) cetirizine [Zyrtec] 10 mg Tablet 10 mg PO QAM docusate sodium [Stool Softener] 100 mg Capsule 100 mg PO BID cholecalciferol (vitamin D3) [Vitamin D3] 125 mcg (5,000 unit) Tablet 5,000 unit PO DAILY cyanocobalamin (vitamin B-12) [Vitamin B-12] 1,000 mcg Tablet 1,000 mcg PO Q OTHER DAY Ovid Xl Suppliment 2 tab PO DAILY diltiazem HCl 360 mg capsule,extended release 24hr 360 mg PO DAILY potassium chloride 20 mEq tablet,ER particles/crystals 40 meq PO DAILY furosemide 80 mg tablet 80 mg PO DAILY Rx Instructions: PER PT'S DAUGHTER, "DID NOT GIVE D/T CATHETER NOT WORKING".12/01/24 allopurinol 300 mg tablet 300 mg PO DAILY rosuvastatin 5 mg tablet 5 mg PO 3XWK Rx Instructions: TAKES MON, WED, & FRI. diclofenac sodium 1 % gel 2 g topical QID PRN (Reason: Pain) Referrals Referrals: Broderick Chávez DO [Primary Care Provider] -
[2024-12-01 14:21] LABS: Hematocrit (blood only) 40.7 % (42.0-52.0); Hemoglobin 13.2 g/dl (14.0-18.0); Immature Granulocytes # (auto) 0.18 K/uL (0.01-0.20); Immature Granulocytes % (auto) 1.1 %; Mean Corpuscular Hemoglobin 28.1 pg (25.0-34.0); Mean Corpuscular Volume 86.6 fL (80.0-100.0); Platelet Count 136 K/uL (130-400); RDW Standard Deviation 45.8 fL (36.4-46.3); Red Blood Count 4.70 M/uL (4.70-6.10); White Blood Count 16.18 K/ul (4.8-10.8)
[2024-12-01 14:29] LABS: Appearance Urine Cloudy (Clear); Bacteria Urine Automated None Seen (None Seen); Cast Urine Automated 0-2 /lpf (0-2); Epithelial Cell Urine Auto 0-2 /hpf (0-2); Glucose Urine UA Negative (Negative); RBC Urine Automated >20 /hpf (0-2)
[2024-12-01 15:08] LABS: Anion Gap 5.0 (3-11); Blood Urea Nitrogen 15.0 mg/dl (6-23); Calcium 8.4 mg/dl (8.6-10.3); Carbon Dioxide 31.0 mmol/L (21-32); Chloride 100.0 mmol/L (98-107); Creatinine Clr Calc Pharmacy 153.3 ml/min; Glucose 146.0 mg/dl (70-99(Fasting)); Magnesium 2.3 mg/dl (1.7-2.4); Potassium 4.0 mmol/L (3.5-5.1); Sodium 136.0 mmol/L (136-145)
--- NOTE | 2024-12-01 15:14 | XRay Report ---
Exam: Chest one view portable. Reason for exam: Weakness Previous studies: 11/25/2024. FINDINGS: Suboptimal inspiration has been made. Heart remains mildly enlarged. Mild basilar atelectasis persists. Otherwise no new acute infiltrate or edema is seen. IMPRESSION: 1. Suboptimal inspiration. 2. Stable cardiomegaly. 3. Mild bibasilar atelectasis. Electronically signed by Filiberto Torres 12-01-2024 3:14 PM
--- NOTE | 2024-12-01 16:40 | History & Physical Report ---
Date of Service December 01, 2024 Assessment & Plan (1) Malfunction of Cueva catheter: (2) Acute urinary retention: (3) BPH (benign prostatic hyperplasia): Plan Impression and Plan #Urinary Retention #BPH -Urology consulted and has seen the patient in the ED -Continue home dutasteride,Uroxatral -Anticipate cystoscope in AM -Urine culture with empiric antibiotics prior to procedure, adjustment based on culture #Hypertension -Continue Losartan -Continue Diltiazem -Continue Carvedilol #Thoracic aortic aneurysm/AAA Most recent CT scan shows TAA measuring 5.1 cm and AAA measuring 4.4 cm -Continue Carvedilol and Crestor -Being monitored by Cardiology -No abdominal pain or discomfort #Hyperlipidemia -Continue Crestor 5mg po 3x weekly (not due until Tuesday) #Hypothyroidism -Continue Synthroid 50mcg po qAM #ADILSON -CPAP qHS with oxygen Ppx - Hold in anticipation of procedure in AM History of Present Illness Chief Complaint: Catheter Issues Primary Care Provider: Broderick Chávez DO 79 y/o male presents to the ED with recurrent catheter issues. He was seen initially in the ED on 11/29/2024 with difficulty urinating. Bladder scan in the ER was greater than 990, and Cueva catheter was placed by nursing which drained greater than 1200 mL over 2-1/2 hours. He was discharged from the ED with a Cueva and outpatient urology follow up. However, he returned to the ED on 11/30/2024 when he noted decreased urine in the bag. Bladder scan was again performed which showed greater than 1 L of urine in the patient's bladder. Fo nancy catheter was exchanged by nursing and 1200 cc of urine removed. Patient stated that he felt better after having Cueva catheter exchange and he was appropriately discharged with scheduled urology follow up. Unfortunately he had similar issues overnight and returns to the ED today. Patient was admitted to this facility mid October with COVID. Still with some dyspnea and is using oxygen 3 lpm (baseline). PFTs from 03/2023 demonstrate moderate restrictive lung disease. (+) tobacco history. Follows with pulmonology; known pulmonary nodules with planned follow up. Allergies Allergy/AdvReac Type Severity Reaction Status Date / Time atenolol Allergy Severe throat Verified 12/01/24 16:15 swelling ibuprofen Allergy Severe THROAT Verified 12/01/24 16:15 SWELLING Sulfa (Sulfonamide Allergy Severe Throat Verified 12/01/24 16:15 Antibiotics) tightness diclofenac [From Voltaren] Allergy Mild Unknown Verified 12/01/24 16:15 levofloxacin Allergy Unknown Unknown Verified 12/01/24 16:15 Home Medications Medication Instructions Recorded Confirmed Type aspirin 81 mg tablet,delayed 81 mg PO HS 12/24/17 12/01/24 History release (Agapito Low Dose Aspirin) yzvnubot-jje-wnuth acid 0.4 1 tab PO QAM 12/24/17 12/01/24 History mg-lycopene 300 mcg-lutein 250 mcg tablet (Centrum Silver) omega 3-sgf-qoa-fish oil 1,000 mg 1,000 mg PO QAM 12/24/17 12/01/24 History (120 mg-180 mg) capsule (Fish Oil) vit A 300 mcg-C 200 mg-E 27 1 tab PO DAILY 12/24/17 12/01/24 History mg-lutein 2 mg and minerals tablet (Vision Formula (with lutein)) CPAP Supplies #1 ea 09/19/20 11/17/24 Rx cetirizine 10 mg tablet (Zyrtec) 10 mg PO QAM 01/03/21 12/01/24 History capsaicin 0.033 % topical cream 1 applic topical QID PRN pain 06/23/21 12/01/24 Rx (Zostrix) #56.6 grams coenzyme Q10 100 mg capsule 200 mg PO QAM 08/11/22 12/01/24 History (CoQ-10) cholecalciferol (vitamin D3) 125 5,000 unit PO DAILY 09/12/22 12/01/24 History mcg (5,000 unit) tablet (Vitamin D3) docusate sodium 100 mg capsule 100 mg PO BID 09/12/22 12/01/24 History (Stool Softener) melatonin 10 mg tablet 10 mg PO HS PRN Sleep 09/29/22 12/01/24 History CPAP Machine #1 ea 10/21/22 11/17/24 Rx naproxen sodium 220 mg capsule 220 mg PO DAILY PRN Pain 03/02/23 12/01/24 History (Aleve) Portable Oxygen #1 ea 08/16/23 11/17/24 Rx losartan 50 mg tablet 50 mg PO DAILY 90 days #90 tabs 11/28/23 12/01/24 Rx fluticasone propionate 50 2 spray intranasal QAM #16 grams 12/05/23 12/01/24 Rx mcg/actuation nasal spray,suspension alfuzosin 10 mg tablet,extended 10 mg PO DAILY #90 tabs 02/15/24 12/01/24 Rx release 24 hr (Uroxatral) dutasteride 0.5 mg capsule 0.5 mg PO DAILY #90 caps 02/15/24 12/01/24 Rx (Avodart) carvedilol 6.25 mg tablet 6.25 mg PO BID #180 tabs 05/07/24 12/01/24 Rx pramipexole 0.25 mg tablet 0.25 mg PO QPM PRN restless legs 06/04/24 12/01/24 Rx #30 tabs albuterol sulfate 90 mcg/actuation 2 puff inhalation Q6H PRN 06/05/24 12/01/24 Rx aerosol inhaler shortness of breath or wheezing #1 inhaler fluticasone 250 mcg-salmeterol 50 1 inh inhalation BID #3 Inhalers 06/20/24 12/01/24 Rx mcg/dose blistr powdr for inhalation (Advair Diskus) olopatadine 0.1 % eye drops 1 drp OPB DAILY PRN Eye Irritation 09/19/24 12/01/24 History trazodone 50 mg tablet 100 mg PO HS 09/19/24 12/01/24 History levothyroxine 50 mcg tablet 50 mcg PO QAM #90 tabs 10/01/24 12/01/24 Rx [place] Xl Suppliment 2 tab PO DAILY 11/11/24 12/01/24 History allopurinol 300 mg tablet 300 mg PO DAILY 11/11/24 12/01/24 History cyanocobalamin (vitamin B-12) 1,000 mcg PO Q OTHER DAY 11/11/24 12/01/24 History 1,000 mcg tablet (Vitamin B-12) diclofenac sodium 1 % topical gel 2 g topical QID PRN Pain 11/11/24 12/01/24 History diltiazem HCl 360 mg capsule,24 360 mg PO DAILY 11/11/24 12/01/24 History hr,extended release furosemide 80 mg tablet 80 mg PO DAILY 11/11/24 12/01/24 History potassium chloride 20 mEq 40 meq PO DAILY 11/11/24 12/01/24 History tablet,extended release(part/cryst) rosuvastatin 5 mg tablet 5 mg PO 3XWK 11/11/24 12/01/24 History benzonatate 200 mg capsule 200 mg PO TID PRN cough #30 caps 11/21/24 12/01/24 Rx Past Med/Surg History Problem List Malfunction of Cueva catheter (Acute) Acute urinary retention (Acute) COVID-19 (Acute) Prediabetes BPH (benign prostatic hyperplasia) Acute bacterial prostatitis Acute epididymitis (Acute) Acute UTI (urinary tract infection) (Acute) Sepsis (Acute) Hypoxia (Acute) Elevated troponin Chronic respiratory failure with hypoxia AMS (altered mental status) Testicle pain UTI (urinary tract infection) Sepsis Inflamed seborrheic keratosis Vitamin D deficiency Hypertension (Chronic) Bilateral leg edema (Chronic) Cerebrovascular small vessel disease (Chronic) Follows Dr. Scott Diastolic congestive heart failure (Chronic) Follows Dr. Scott Dyslipidemia (Chronic) Elevated prostate specific antigen (PSA) (Chronic) Enlarged aorta (Chronic) Gout (Chronic) Hyperglycemia (Chronic) Hypothyroidism (Chronic) Lumbar radiculopathy Lung nodule, solitary (Chronic) Obesity, morbid, BMI 40.0-49.9 (Chronic) Obstructive sleep apnea (Chronic) cpap Pulmonary hypertension (Chronic) Restless legs syndrome (Chronic) Shortness of breath on exertion (Chronic) Thoracic aortic aneurysm (Chronic) Follows Dr. Scott Cerebellar stroke (Chronic) ~ 1.5 years ago, tongue numbness on occassion - follows Dr. 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 Shobha Reid Polyneuropathy Urinary retention Peripheral edema Numbness of tongue on occasion per pt Nephrolithiasis Multiple pulmonary nodules Laryngopharyngeal reflux Internal hemorrhoids Diastolic dysfunction High blood pressure DJD (degenerative joint disease) of hip Surgical History Status post left foot surgery History of colonoscopy History of carpal tunnel surgery left History of ankle surgery H/O knee surgery left Family History Father Hypertension Heart disease Myocardial infarction Mother Heart disease Other Allergies Hearing loss Nephrolithiasis Denies family history of Ovarian cancer Prostate cancer Diabetes Breast cancer Lung cancer Colorectal cancer Stroke Social History Smoking Status: Former smoker Tobacco Type: Cigarettes and Smokeless Tobacco (Dip or Chew) Age Started Using Tobacco: 16; Age Quit Using Tobacco: 62; packs per day: 1; Cigarettes Per Day: 1pk / day; Second Hand Exposure: No; Do You Dip or Chew Tobacco: No; Hx Alcohol Use: No Hx Substance Use: No Preferred Language: Slovenian Communication Ability: Effective Visual Impairment: Limited Hearing Ability: Use of Hearing Aid Instructor [employer] Required: No Beliefs That Will Affect Care: Jain Jain Beliefs: Spiritism marital status: Current Living Situation: Spouse current occupational status: retired How many Children do You have: 2 Feels Safe at Home: Yes Childhood Exposure to Second-Hand Smoke: Yes Diet: regular caffeine: Yes Dental Care, Regularly: Yes Physical Activity Frequency: Does not Exercise Seatbelt Use: always Sunscreen Use: Yes Gender Identity: Male Assistive Devices: CPAP, Denture - Upper, Hearing Aid - Bilateral, Oxygen - Continuous, Walker and Wheelchair Review of Systems Constitutional: no fever and no chills Ear, Nose, Mouth, Throat: Hard of hearing Respiratory: + dyspnea Recent history of COVID Cardiovascular: no chest pain Genitourinary: + difficulty urinating Physical Exam Constitutional: WD/WN, vitals as above Respiratory: Decreased BS B/L lower lobes, transmitted upper airway sounds Cardiovascular: Rate/Rhythm: regular rate and regular rhythm Heart Sounds: + murmur (systolic) Gastrointestinal (Abdomen): normal bowel sounds, soft, nontender, no hepatosplenomegaly Musculoskeletal: Trace pedal edema B/L Results & Data Results & Data Vital Signs (Past 12 Hours) Vital Signs Temp Pulse Pulse Resp BP BP Pulse Ox 12/01/24 15:19 72 12/01/24 15:00 68 16 141/80 H 96 12/01/24 13:19 36.4 C L 86 16 157/83 H 96 O2 Del Method O2 Flow Rate 12/01/24 15:19 12/01/24 15:00 Nasal Cannula 3 12/01/24 13:19 Room Air Laboratory Results 12/01/24 12/01/24 12/01/24 Range/Units 14:55 14:41 14:05 WBC 16.18 H (4.8-10.8) K/ul RBC 4.70 (4.70-6.10) M/uL Hgb 13.2 L (14.0-18.0) g/dl Hct 40.7 L (42.0-52.0) % MCV 86.6 (80.0-100.0) fL MCH 28.1 (25.0-34.0) pg MCHC 32.4 (32.0-36.0) g/dL RDW Std Deviation 45.8 (36.4-46.3) fL RDW Coeff of Jose Guadalupe 14.6 H (11.5-14.5) % Plt Count 136 (130-400) K/uL MPV 10.6 (9.4-12.4) fL Immature Gran % (Auto) 1.1 % Neut % (Auto) 88.6 % Lymph % (Auto) 4.9 % [place] % (Auto) 4.7 % Eos % (Auto) 0.6 % Baso % (Auto) 0.1 % Neut # (Auto) 14.33 H (1.40-6.50) K/uL Lymph # (Auto) 0.79 L (1.20-3.40) K/uL [place] # (Auto) 0.76 H (0.11-0.59) K/uL Eos # (Auto) 0.10 (0.00-0.50) K/uL Baso # (Auto) 0.02 (0.00-0.20) K/uL Immature Gran # (Auto) 0.18 (0.01-0.20) K/uL Sodium 136 Cancelled Potassium 4.0 Cancelled Chloride 100 Cancelled Carbon Dioxide 31 Cancelled Anion Gap 5 Cancelled BUN 15 Cancelled Creatinine 0.58 L Cancelled Est Cr Clr Drug Dosing 153.3 Cancelled eGFR 99.21 Cancelled BUN/Creatinine Ratio 25.9 H Cancelled Glucose 146 H Cancelled Lactate 1.4 (0.4-2.0) mmol/L Calcium 8.4 L Cancelled Magnesium 2.3 Cancelled Procalcitonin 0.03 (0-0.5) ng/ml Urine Color Dark Yellow Urine Appearance Cloudy A (Clear) Urine pH 7.0 (4.5-7.5) Ur Specific [place] 1.020 (1.000-1.030) Urine Protein 2+ H (Negative) Urine Glucose (UA) Negative (Negative) Urine Ketones Negative (Negative) Urine Blood 3+ H (Negative) Urine Nitrite Negative (Negative) Urine Bilirubin Negative (Negative) Urine Urobilinogen Negative (Negative) Ur Leukocyte Esterase 1+ H (Negative) Urine WBC (Auto) 11-20 H (0-5) /hpf Urine RBC (Auto) >20 H (0-2) /hpf U Hyaline Cast (Auto) 0-2 (0-2) /lpf U Epithel Cells (Auto) 0-2 (0-2) /hpf Urine Bacteria (Auto) None Seen (None Seen) Urine Comment
--- NOTE | 2024-12-01 16:49 | CT Scan Report ---
EXAMINATION: CT of the abdomen and pelvis performed without contrast TECHNIQUE: Helical CT images from the lung bases through the symphysis pubis were obtained without contrast. Coronal and sagittal reformatted images were generated at a workstation for further assessment. Dose reduction techniques were achieved by using automatic exposure control and/or adjustment of mA and/or kV according to patient size and/or use of iterative reconstruction technique. COMPARISON: None HISTORY: Abdominal pain FINDINGS: Lower chest: No consolidation. No pleural effusion or pneumothorax. Liver: No suspicious liver lesions. Gallbladder: No gallstones. No evidence of acute cholecystitis. Spleen: Normal size. Pancreas: No suspicious pancreatic lesions. The pancreatic duct is not dilated. Adrenal glands: No adrenal nodules. Kidneys: No hydronephrosis or obstructing renal stones. Right-sided renal cyst. Bladder / Pelvic organs: The prostate gland is significantly enlarged. A Cueva catheter is in place with decompression of the urinary bladder.. Bowel: No bowel obstruction. No abnormal bowel wall thickening. The appendix is unremarkable. Lymph nodes: No retroperitoneal, mesenteric, or pelvic lymphadenopathy. Peritoneum / Retroperitoneum: No free fluid or air within the abdomen. Vessels: Abdominal aortic aneurysm measuring 4.3 cm AP diameter, on image 58. Moderate aortoiliac calcification. Bones and soft tissues: No suspicious lesion in the bones. Right hip arthroplasty. IMPRESSION: No visualized acute process. Prostatomegaly. Electronically signed by Davian Vanegas 12-01-2024 4:49 PM
--- NOTE | 2024-12-01 17:00 | Urology Consultation ---
Date of Consultation December 01, 2024 History of Present Illness History of Present Illness Patient with significant hematuria with consultation due to retention and hematuria and family request. Patient was dealing with worsening hematuria. Was dealing with UTI. Developed retention issues. Has had catheter block up multiple times. Has been in the ER 3 times in the last week. Has had significant increase in issues. Was previously a patient of Dr. Rai. Had subsequently been changed to Dr. Valdovinos. Was last seen back in January of last year. Patient had imaging in September which showed no major obstruction however at the time patient was dealing with other major issues including GI disorder. Additionally patient has had stroke. Patient has been poorly tolerating catheter with multiple episodes of the catheter clogging or stopping draining. Has had exchange down multiple times over the last week. Has been an increasing issue over the last few years. Developed severe issues over the last few months. Has had significant hematuria in the last few days with the catheter. Family is very concerned due to persistent hematuria over the last few days. Additionally with repeat episodes of obstruction and clogging. A new catheter was placed today by the ER. Patient was going to undergo repeat imaging after catheter placement. Will rule out stones or other major issues based on our recommendation. Patient's urine already appears to be clearing with your catheter. Had been in close communication with ER upon arrival however patient did also had family call in earlier. Reviewed this extensively with family. Patient independently assessed, examined, interviewed, and evaluated. Patient's vitals and labs were all reviewed. Pertinent values in the HPI and plan section. Imaging was reviewed interpreted by myself. Previous imaging did not show any major stones. Otherwise agree with read. Patient does have repeat CT ordered by the ER. Vitals were reviewed. Hemoglobin stable at 13.2. White count elevated at 16.18. Creatinine was 0.58. Patient's vitals 141/80 temperature is 36.4. Oxygen saturation 96% on 3 L nasal cannula. Other vitals reviewed. Discussed findings extensively with patient and family. Reviewed with the hospitalist and nursing team/consulting physicians/team. Patient's complicated medical and surgical history was reviewed and summarized above. Patient's surgical, medical, social, and family history were all reviewed with pertinent values as above. Discussed patient's current diagnosis as well as concerns and issues. Reviewed different options moving forward. Discussed potential risks and benefits as we ll as possible options and concerns. Reviewed potential surgical options and interventions. Discussed potential issues and concerns related to intervention. Risk and benefits were discussed extensively with patient and any available family. Discussed potential risks related to anesthesia. Discussed risks of bleeding infection and injury. Patient and family are very concerned about him having reoccurrence of bleeding. Will plan on getting scope but was being set up for a few months from now. Discussed different options. Will plan to monitor patient overnight if continues patient develops severe bleed may need to have urgent intervention. If patient does appear to improve can consider possible elective cystoscopy in hospital under sedation in order to assess for mass or other obstruction or bleeding ulceration. Would be higher risk than the procedure under local in the office but would be able to deal with some of the more common issues that can be encountered. Reviewed this extensively with patient and family. Will plan to reevaluate tomorrow if patient develops severe bleed or other major issue may need to be taken urgently for intervention and management of acute bleed however at this point the urine appears to have largely cleared with placement of new catheter. Patient's complicated medical surgical history is reviewed and summarized above all imaging was reviewed interpreted by myself all labs and vitals were reviewed with pertinent positive negatives in the HPI and plan section. Allergies Allergy/AdvReac Type Severity Reaction Status Date / Time atenolol Allergy Severe throat Verified 12/01/24 16:15 swelling ibuprofen Allergy Severe THROAT Verified 12/01/24 16:15 SWELLING Sulfa (Sulfonamide Allergy Severe Throat Verified 12/01/24 16:15 Antibiotics) tightness diclofenac [From Voltaren] Allergy Mild Unknown Verified 12/01/24 16:15 levofloxacin Allergy Unknown Unknown Verified 12/01/24 16:15 Home Medications Medication Instructions Recorded Confirmed Type aspirin 81 mg tablet,delayed 81 mg PO HS 12/24/17 12/01/24 History release (Agapito Low Dose Aspirin) yvyahekz-qam-iurci acid 0.4 1 tab PO QAM 12/24/17 12/01/24 History mg-lycopene 300 mcg-lutein 250 mcg tablet (Centrum Silver) omega 1-nec-xgl-fish oil 1,000 mg 1,000 mg PO QAM 12/24/17 12/01/24 History (120 mg-180 mg) capsule (Fish Oil) vit A 300 mcg-C 200 mg-E 27 1 tab PO DAILY 12/24/17 12/01/24 History mg-lutein 2 mg and minerals tablet (Vision Formula (with lutein)) CPAP Supplies #1 ea 09/19/20 11/17/24 Rx cetirizine 10 mg tablet (Zyrtec) 10 mg PO QAM 01/03/21 12/01/24 History capsaicin 0.033 % topical cream 1 applic topical QID PRN pain 06/23/21 12/01/24 Rx (Zostrix) #56.6 grams coenzyme Q10 100 mg capsule 200 mg PO QAM 08/11/22 12/01/24 History (CoQ-10) cholecalciferol (vitamin D3) 125 5,000 unit PO DAILY 09/12/22 12/01/24 History mcg (5,000 unit) tablet (Vitamin D3) docusate sodium 100 mg capsule 100 mg PO BID 09/12/22 12/01/24 History (Stool Softener) melatonin 10 mg tablet 10 mg PO HS PRN Sleep 09/29/22 12/01/24 History CPAP Machine #1 ea 10/21/22 11/17/24 Rx naproxen sodium 220 mg capsule 220 mg PO DAILY PRN Pain 03/02/23 12/01/24 Hi story (Aleve) Portable Oxygen #1 ea 08/16/23 11/17/24 Rx losartan 50 mg tablet 50 mg PO DAILY 90 days #90 tabs 11/28/23 12/01/24 Rx fluticasone propionate 50 2 spray intranasal QAM #16 grams 12/05/23 12/01/24 Rx mcg/actuation nasal spray,suspension alfuzosin 10 mg tablet,extended 10 mg PO DAILY #90 tabs 02/15/24 12/01/24 Rx release 24 hr (Uroxatral) dutasteride 0.5 mg capsule 0.5 mg PO DAILY #90 caps 02/15/24 12/01/24 Rx (Avodart) carvedilol 6.25 mg tablet 6.25 mg PO BID #180 tabs 05/07/24 12/01/24 Rx pramipexole 0.25 mg tablet 0.25 mg PO QPM PRN restless legs 06/04/24 12/01/24 Rx #30 tabs albuterol sulfate 90 mcg/actuation 2 puff inhalation Q6H PRN 06/05/24 12/01/24 Rx aerosol inhaler shortness of breath or wheezing #1 inhaler fluticasone 250 mcg-salmeterol 50 1 inh inhalation BID #3 Inhalers 06/20/24 12/01/24 Rx mcg/dose blistr powdr for inhalation (Advair Diskus) olopatadine 0.1 % eye drops 1 drp OPB DAILY PRN Eye Irritation 09/19/24 12/01/24 History trazodone 50 mg tablet 100 mg PO HS 09/19/24 12/01/24 History levothyroxine 50 mcg tablet 50 mcg PO QAM #90 tabs 10/01/24 12/01/24 [address] [place] Xl Suppliment 2 tab PO DAILY 11/11/24 12/01/24 History allopurinol 300 mg tablet 300 mg PO DAILY 11/11/24 12/01/24 History cyanocobalamin (vitamin B-12) 1,000 mcg PO Q OTHER DAY 11/11/24 12/01/24 History 1,000 mcg tablet (Vitamin B-12) diclofenac sodium 1 % topical gel 2 g topical QID PRN Pain 11/11/24 12/01/24 History diltiazem HCl 360 mg capsule,24 360 mg PO DAILY 11/11/24 12/01/24 History hr,extended release furosemide 80 mg tablet 80 mg PO DAILY 11/11/24 12/01/24 History potassium chloride 20 mEq 40 meq PO DAILY 11/11/24 12/01/24 History tablet,extended release(part/cryst) rosuvastatin 5 mg tablet 5 mg PO 3XWK 11/11/24 12/01/24 History benzonatate 200 mg capsule 200 mg PO TID PRN cough #30 caps 11/21/24 12/01/24 Rx Patient History Medical History B12 deficiency Venous ulcers of both lower extremities Spinal stenosis inject prn by Dr. Shobha Reid Polyneuropathy Urinary retention Peripheral edema Numbness of tongue on occasion per pt Nephrolithiasis Multiple pulmonary nodules Laryngopharyngeal reflux Internal hemorrhoids Diastolic dysfunction High blood pressure DJD (degenerative joint disease) of hip Surgical History Status post left foot surgery History of colonoscopy History of carpal tunnel surgery left History of ankle surgery H/O knee surgery left Family History Father Hypertension Heart disease Myocardial infarction Mother Heart disease Other Allergies Hearing loss Nephrolithiasis Denies family history of Ovarian cancer Prostate cancer Diabetes Breast cancer Lung cancer Colorectal cancer Stroke Social History Smoking Status: Former smoker Tobacco Type: Cigarettes and Smokeless Tobacco (Dip or Chew) Age Started Using Tobacco: 16; Age Quit Using Tobacco: 62; packs per day: 1; Cigarettes Per Day: 1pk / day; Second Hand Exposure: No; Do You Dip or Chew Tobacco: No; Hx Alcohol Use: No Hx Substance Use: No Preferred Language: Portuguese Communication Ability: Effective Visual Impairment: Limited Hearing Ability: Use of Hearing Aid Foster Winder Required: No Beliefs That Will Affect Care: Mu-Ism Mu-Ism Beliefs: Hoahaoism marital status: Current Living Situation: Spouse current occupational status: retired How many Children do You have: 2 Feels Safe at Home: Yes Childhood Exposure to Second-Hand Smoke: Yes Diet: regular caffeine: Yes Dental Care, Regularly: Yes Physical Activity Frequency: Does not Exercise Seatbelt Use: always Sunscreen Use: Yes Gender Identity: Male Assistive Devices: CPAP, Denture - Upper, Hearing Aid - Bilateral, Oxygen - Continuous, Walker and Wheelchair Review of Systems 2 Review of Systems: All systems reviewed & are unremarkable except as noted in HPI & below Physical Exam Physical Exam: General: Alert and oriented x 3 in no acute distress. Obese. Recent CVA. HEENT: Normocephalic Atraumatic. Inspection normal. Cranial Nerves 2-12 Grossly intact. Nares are clear. Neck is supple. Normal inspection of face. Normal inspection of neck. Neurologic: No deficits on inspection. Baseline for motor function and sensory. Psychologic: Normal affect. Respiratory: Nonlabored. No use of accessory muscles. No tachypnea or dyspnea. Cardiovascular: No tachycardia Skin: [place] and Dry. No rashes or visible lesions. Extremities: Moving without issues. No motor deficits on inspection Lymphatics: No edema Abdomen: Abdominal distention. No rebound or guarding. : Cueva catheter in place draining light red urine without clot. Catheter exchange had over a liter of urine drained. Third time draining over the liter in the last week Results & Data Vital Signs (Past 12 Hours) Vital Signs Temp Pulse Pulse Resp BP BP Pulse Ox 12/01/24 15:19 72 12/01/24 15:00 68 16 141/80 H 96 12/01/24 13:19 36.4 C L 86 16 157/83 H 96 O2 Del Method O2 Flow Rate 12/01/24 15:19 12/01/24 15:00 Nasal Cannula 3 12/01/24 13:19 Room Air PG Care Time/CCT Total # of Minutes Spent Total Time Spent with Patient: Total time spent is greater than 50% in coordination of care (as documented) at patient's floor/unit and/or counseling patient: Coding Level of Care Code 58898 INT INP/OBS CARE 3MIN
[2024-12-01] MEDS ORDERED: NON-FORMULARY MEDICATION (Cpap Machine misc) SCH (18:31)
[2024-12-01] MEDS ORDERED: ALBUTEROL HFA 8 GM INHALER INH PRN (18:31)
[2024-12-01] MEDS ORDERED: POLYETHYLENE (MIRALAX) 17 GM PACK PO PRN (18:31)
[2024-12-01] MEDS ORDERED: ACETAMINOPHEN 325 MG TAB PO PRN (18:31)
[2024-12-01] MEDS ORDERED: MELATONIN 3 MG TAB PO PRN (18:31)
[2024-12-01] MEDS ORDERED: PRAMIPEXOLE DIHYDROCHLO 0.25 MG TAB PO PRN (18:31)
[2024-12-01] MEDS ORDERED: ONDANSETRON INJ 2 MG/ML 2 ML VIAL IV PRN (18:31)
[2024-12-01] MEDS: FUROSEMIDE 80 MG TAB PO STA (20:11)
[2024-12-01] MEDS: cefTRIAXone SODIUM 2,000 MG/50 ML BAG IV SCH (20:11)
[2024-12-01] MEDS: DOCUSATE SODIUM 100 MG CAP PO SCH (20:11)
[2024-12-02 07:39] LABS: Hematocrit (blood only) 36.4 % (42.0-52.0); Hemoglobin 11.5 g/dl (14.0-18.0); Mean Corpuscular Hemoglobin 27.8 pg (25.0-34.0); Mean Corpuscular Volume 87.9 fL (80.0-100.0); Platelet Count 118 K/uL (130-400); RDW Standard Deviation 46.9 fL (36.4-46.3); Red Blood Count 4.14 M/uL (4.70-6.10); White Blood Count 12.29 K/ul (4.8-10.8)
--- NOTE | 2024-12-02 07:41 | Hospitalist Progress Note ---
Date of Service December 02, 2024 Assessment & Plan (1) Malfunction of Baker catheter: (2) Acute urinary retention: (3) BPH (benign prostatic hyperplasia): Plan Pt is a 79 yo male with PMH of BPH, COPD, HTN, hx of CVA, HLD, hypothyroidism, AAA, gout, and ADILSON who presented to ED for 3rd visit in 4 days for urinary retention due to obstruction in baker catheter. Pt was admitted for observation and urology consult with anticipation of possible cystoscopy. #Urinary Retention #BPH -Urology consulted, awaiting further recommendation or possible intervention -Continue home dutasteride,Uroxatral -Urine culture pending -Continue CTX 2g q24h for empiric antibiotics prior to procedure, adjustment based on culture #Hypertension BP has been stable since admission -Continue Losartan -Continue Diltiazem -Continue Carvedilol #Thoracic aortic aneurysm/AAA Most recent CT scan shows TAA measuring 5.1 cm and AAA measuring 4.4 cm -Continue Carvedilol and Crestor -Being monitored by Cardiology -No abdominal pain or discomfort #Hyperlipidemia -Continue Crestor 5mg po 3x weekly (not due until Tuesday) #Hypothyroidism -Continue Synthroid 50mcg po qAM #ADILSON -CPAP qHS with oxygen Dispo: Med/surg Ppx - Hold in anticipation of procedure Diet: NPO, until decision regarding procedure Code: Full Admission and Anticipated Discharge Date Admission Date: December 01, 2024 Supervising Physician Co-Signing Physician Notes ATTESTATION I also saw the patient and confirmed godoy portions of the history and exam. I agree with the impression and plan in the resident documentation, and as summarized below. Baker draining dark yellow urine - appears patent. Not bloody like yesterday. EXAM Remains afebrile Alert and oriented. Respirations non labored DATA Labs WBC improving BMP normal Micro Blood cultures pending Urine culture pin point growth IMPRESSION & PLAN Urinary Retention BPH Await urology recommendation regarding cysto Continue Rocephin pending cultures ASA on hold given possible procedure; will need to resume Additional per resident documentation Subjective No acute events overnight. This morning, pt reports he is feeling ok. No issues with his baker catheter overnight. He is awaiting visit from urology to discuss plan. Denies CP, abdominal pain, headache, dizziness, dysuria, or N/V/D Review of Systems Review of Systems: As per HPI Constitutional: no fever and no chills Ear, Nose, Mouth, Throat: Hard of hearing Respiratory: + dyspnea Recent history of COVID Cardiovascular: no chest pain Genitourinary: + difficulty urinating Physical Exam Physical Exam: Gen: NAD HENT: Normocephalic, atraumatic. Trachea midline, no thyromegaly Cardio: RRR, no murmurs or clicks. Resp: CTAB, Equal bilateral chest rise, no increased work of breathing. 3L O2 via NC GI: Non distended, soft, non tender, normoactive bowel sounds : Baker in place. Small blood clots noted in line. Urine is andrade in bag. MSK: Moving all 4 extremities independently Skin: Dry, of normal skin tone, Neuro: A& O x 3, normal affect Results & Data Results & Data Vital Signs (Past 12 Hours) Vital Signs Temp Pulse Resp BP Pulse Ox O2 Del Method O2 Flow Rate 12/01/24 22:41 36.3 C L 67 18 112/67 95 Nasal Cannula 3 12/01/24 20:00 Nasal Cannula 3 12/01/24 20:00 36.5 C 69 16 123/59 L 98 Nasal Cannula 3 Resident Activity Tracking Resident Involvement: Resident Care Provided Care Provided: Adult Hospital Medicine
[2024-12-02 07:57] LABS: Anion Gap 4.0 (3-11); Blood Urea Nitrogen 17.0 mg/dl (6-23); Calcium 8.0 mg/dl (8.6-10.3); Carbon Dioxide 32.0 mmol/L (21-32); Chloride 102.0 mmol/L (98-107); Creatinine Clr Calc Pharmacy 141.1 ml/min; Glucose 107.0 mg/dl (70-99(Fasting)); Potassium 4.0 mmol/L (3.5-5.1); Sodium 138.0 mmol/L (136-145)
[2024-12-02] MEDS: TAMSULOSIN HCL 0.4 MG CAP PO SCH (07:59)
[2024-12-02] MEDS: FINASTERIDE 5 MG TAB PO SCH (08:00)
[2024-12-02] MEDS: LOSARTAN POTASSIUM 50 MG TAB PO SCH (08:00)
[2024-12-02] MEDS ORDERED: NON-FORMULARY MEDICATION (Vit A,C And E-Lutein-Minerals [Vision Formula (With Lutein)] 1,0 PO SCH (09:00)
[2024-12-02] MEDS ORDERED: FUROSEMIDE 80 MG TAB PO SCH (09:00)
[2024-12-02] MEDS: LEVOTHYROXINE SODIUM 50 MCG TABLET PO SCH (09:04)
[2024-12-02] MEDS: FLUTICASONE/VILANTEROL 200/25MCG 14 PUFFS/INHALER INH SCH (09:04)
[2024-12-02] MEDS: FUROSEMIDE 80 MG TAB PO SCH (12:01)
--- NOTE | 2024-12-02 16:01 | Urology Progress Note ---
Date of Service December 02, 2024 Assessment & Plan (1) Malfunction of Cueva catheter: (2) Acute urinary retention: (3) BPH (benign prostatic hyperplasia): (4) Acute bacterial prostatitis: (5) Acute epididymitis: (6) Sepsis: (7) Chronic respiratory failure with hypoxia: (8) Diastolic congestive heart failure: (9) BPH with obstruction/lower urinary tract symptoms: (10) Cerebellar stroke: (11) Obstructive Sleep Apnea-Hypopnea Syndrome: Plan Patient with severe obstructive issues and retention. Has been having increasing issues with catheter. Had to return 3 times to the ER today for catheter was replaced had over a liter with each replacement. Due to large volume retention developed hematuria with the exchanges. Patient overnight was monitored. Did not have considerable issues with the catheter overnight. Patient and family are complaining of restlessness and trouble sleeping. Family feels like his mom getting in and out of bed and getting up and down may be contributing to some of the issues. Patient denies manipulating the catheter. Has not had significant hematuria since admission. Has cleared after the last catheter change. Did discuss different options. Because of retention and obstruction as well as potential source of bleeding have yet to be determined. Most recent CT imaging did not show any major stones or other blockage. Has been dealing with increasing urinary issues over the last month. Reviewed extensively options. Discussed patient's comorbidities. Will plan to monitor overnight and monitor urine output to confirm no issues with the catheter. Can consider moving forward with cystoscopy tomorrow if patient continues to improve and clear of his urine to further assess potential causes of bleeding and obstruction. Agree with plans. Coordinated with the hospitalist and discussed different options. Also been coordinating with nursing as well as the patient's family. Admission and Anticipated Discharge Date Admission Date: December 01, 2024 Subjective Patient admitted with retention with hematuria and catheter issues with discomfort. Patient is afebrile. Has been undergoing supportive care with oral medications, IV medications, IV fluids, and oral intake. Is doing better without considerable increase in pain or major issues. Has not developed severe vomiting or other issues. Has not experienced fever or chills. Has been tolerating oral medications. Is tolerating fluids. Has noticed some frequency and urgency. Has not had severe pain in the back and flank. Does have occasional burning and irritation. No severe episodes or major changes. Has not passed a large amount of blood or debris Has not had major issue with the catheter since admission and hematuria has largely resolved. His major complaint at this point and the complaint of the family is his significant issues at night as he is very restless. He typically needs medications to assist with sleeping. Review of Systems Review of Systems: All systems reviewed & are unremarkable except as noted in HPI & below Physical Exam Physical Exam: General: Alert in no acute distress. Obese. Advanced age. HEENT: Normocephalic Atraumatic. Inspection normal. Cranial Nerves 2-12 Grossly intact. Normal inspection of face. Normal inspection of neck. Psychologic: Normal affect. Respiratory: Nonlabored. No use of accessory muscles. No tachypnea or dyspnea. Cardiovascular: No tachycardia Skin: [place] and Dry. No rashes or visible lesions. Extremities/Lymphatics: No edema Abdomen: Soft Non-distended. No rebound or guarding. : Catheter in place draining clear yellow urine Results & Data Vital Signs (Past 12 Hours) Vital Signs Temp Pulse Resp BP Pulse Ox O2 Del Method O2 Flow Rate 12/02/24 15:10 73 18 117/61 96 Room Air 12/02/24 08:16 Nasal Cannula 3.5 12/02/24 08:04 36.7 C 68 16 123/56 L 96 Nasal Cannula 3.5 PG Care Time/CCT Total # of Minutes Spent Total Time Spent with Patient: Total time spent is greater than 50% in coordination of care (as documented) at patient's floor/unit and/or counseling patient: Coding Level of Care Code 46483 SUB INP/OBS CARE 3/50MIN Diagnoses Malfunction of Cueva catheter T83.011A Acute urinary retention R33.8 BPH (benign prostatic hyperplasia) N40.0 Acute bacterial prostatitis N41.0 Acute epididymitis N45.1 Sepsis A41.9 Sepsis acute organ dysfunction status: without acute organ dysfunction Sepsis type: sepsis due to unspecified organism Chronic respiratory failure with hypoxia J96.11 Chronic diastolic congestive heart failure I50.32 Heart failure chronicity: chronic BPH with obstruction/lower urinary tract symptoms N40.1; N13.8 Cerebellar stroke I63.9 Obstructive Sleep Apnea-Hypopnea Syndrome G47.33 (6) Sepsis Sepsis acute organ dysfunction status: without acute organ dysfunction Sepsis type: sepsis due to unspecified organism Qualified Code(s): A41.9 - Sepsis, unspecified organism (8) Diastolic congestive heart failure Heart failure chronicity: chronic Qualified Code(s): I50.32 - Chronic diastolic (congestive) heart failure
[2024-12-02] MEDS: DOXEPIN HCL 10 MG CAPSULE PO PRN (23:45)
[2024-12-03 07:01] LABS: Hematocrit (blood only) 36.8 % (42.0-52.0); Hemoglobin 12.2 g/dl (14.0-18.0); Mean Corpuscular Hemoglobin 29.1 pg (25.0-34.0); Mean Corpuscular Volume 87.8 fL (80.0-100.0); Platelet Count 137 K/uL (130-400); RDW Standard Deviation 46.5 fL (36.4-46.3); Red Blood Count 4.19 M/uL (4.70-6.10); White Blood Count 10.74 K/ul (4.8-10.8)
[2024-12-03 07:25] LABS: Anion Gap 6.0 (3-11); Blood Urea Nitrogen 19.0 mg/dl (6-23); Calcium 8.4 mg/dl (8.6-10.3); Carbon Dioxide 30.0 mmol/L (21-32); Chloride 103.0 mmol/L (98-107); Creatinine Clr Calc Pharmacy 130.8 ml/min; Glucose 104.0 mg/dl (70-99(Fasting)); Potassium 3.8 mmol/L (3.5-5.1); Sodium 139.0 mmol/L (136-145)
--- NOTE | 2024-12-03 10:54 | Urology Progress Note ---
Date of Service December 03, 2024 Assessment & Plan (1) Malfunction of Cueva catheter: (2) Acute urinary retention: (3) BPH with obstruction/lower urinary tract symptoms: Plan: Follow-up of urinary retention and malfunction of Cueva catheter Patient afebrile, hemodynamically stable on supplemental oxygen Labs reviewedcreatinine 0.68, WBC 10.74, hemoglobin 12.2 Urine culture with no growth Blood cultures prelim with no growth Hematuria has cleared Maintain Cueva catheter Given recent hematuria and obstructive issues, will proceed with cystoscopy, clot evacuation, possible bilateral retrograde pyelograms today as previously discussed with Dr. Tabor Risks and benefits of procedure to be reviewed with patient by Dr. Tabor Keep n.p.o. for procedure Continue supportive care medical management per hospital medicine service Attending note: Patient independently assessed, examined, interviewed, and evaluated. Agree with note as above. Patient's vitals and labs were all reviewed. Pertinent values in the HPI and plan section. Imaging was reviewed interpreted by myself. Agree with read. Vitals were reviewed. Discussed findings extensively with patient and family. Reviewed with nurse practitioner as well as consulting physicians/team. Patient's complicated medical and surgical history was reviewed and summarized above. Patient's surgical, medical, social, and family history were all reviewed with pertinent values as above. Discussed patient's current diagnosis as well as concerns and issues. Reviewed different options moving forward. Discussed potential risks and benefits as well as possible options and concerns. Reviewed potential surgical options and interventions. Discussed potential issues and concerns related to intervention. Risk and benefits were discussed extensively with patient and any available family. Discussed potential risks related to anesthesia. Discussed risks of bleeding infection and injury. Risks and benefits discussed at length for procedure. These include bleeding, infection, injury to surrounding tissues or organs, and risks associated with anesthesia. Patient states understanding and agrees to proceed. Will sign consent and proceed. Plan for cystoscopy with possible clot evacuation Admission and Anticipated Discharge Date Admission Date: December 01, 2024 Subjective Patient seen and examined at bedside this morning. He is resting in bed, arouses easily to his name. Denies acute issues overnight. No pain. Cueva int act draining clear urine. No fever or chills. No nausea or vomiting. Review of Systems Constitutional: as per Subjective / HPI Genitourinary: + as per Subjective / HPI Physical Exam Constitutional: no acute distress Respiratory: no respiratory distress and no labored breathing Supplemental oxygen in place Gastrointestinal (Abdomen): Inspection/Auscultation: abdomen normal to inspection Musculoskeletal: Head/Neck/Chest: normocephalic Neurologic: moves all extremities and awake Psychiatric: Orientation: alert and oriented x 3 Genitourinary: Cueva intact Results & Data Vital Signs (Past 12 Hours) Vital Signs Temp Pulse Resp BP Pulse Ox O2 Del Method O2 Flow Rate 12/03/24 08:07 67 105/57 L 12/03/24 07:50 36.2 C L 68 18 135/85 98 Nasal Cannula 3 12/03/24 07:41 Nasal Cannula 3 12/02/24 23:05 37.4 C 76 18 131/75 96 Nasal Cannula 3.5 PG Care Time/CCT Total # of Minutes Spent Total Time Spent with Patient: Total time spent is greater than 50% in coordination of care (as documented) at patient's floor/unit and/or counseling patient: Coding Level of Care Code 73278 SUB INP/OBS CARE 2/35MIN Diagnoses Malfunction of Cueva catheter T83.011A Acute urinary retention R33.8 BPH with obstruction/lower urinary tract symptoms N40.1; N13.8
--- NOTE | 2024-12-03 11:06 | Anesthesiology Consultation ---
Date of Service December 03, 2024 Assessment & Plan Chart Review Chart Review: Acceptable Risk for Surgery Consults Requested none ASA ASA3 Proposed Anesthesia Anesthesia Type: General Risk / Benefits Reviewed With: PT / POA / Parent / Guardian, Accepts Plan and Informed Consent Obtained History Surgery Operation Date: 12/03/24 07:00 Proposed Procedures p Cystoscopy Clot Evacuation, Possible Bilateral Retrogrades - Kem Tabor, DO Height/Weight Height: 6 ft Weight: 146 kg Allergies Allergy/AdvReac Type Severity Reaction Status Date / Time atenolol Allergy Severe throat Verified 12/01/24 16:15 swelling ibuprofen Allergy Severe THROAT Verified 12/01/24 16:15 SWELLING Sulfa (Sulfonamide Allergy Severe Throat Verified 12/01/24 16:15 Antibiotics) tightness diclofenac [From Voltaren] Allergy Mild Unknown Verified 12/01/24 16:15 levofloxacin Allergy Unknown Unknown Verified 12/01/24 16:15 Medications Home Medications Medication Instructions Recorded Confirmed Last Taken aspirin 81 mg tablet,delayed 81 mg PO HS 12/24/17 12/01/24 11/30/24 release (Agapito Low Dose Aspirin) jauyicsc-suo-amaxw acid 0.4 1 tab PO QAM 12/24/17 12/01/24 12/01/24 mg-lycopene 300 mcg-lutein 250 mcg tablet (Centrum Silver) omega 3-eri-org-fish oil 1,000 mg 1,000 mg PO QAM 12/24/17 12/01/24 12/01/24 (120 mg-180 mg) capsule (Fish Oil) vit A 300 mcg-C 200 mg-E 27 1 tab PO DAILY 12/24/17 12/01/24 12/01/24 mg-lutein 2 mg and minerals tablet (Vision Formula (with lutein)) CPAP Supplies #1 ea 09/19/20 11/17/24 Unknown cetirizine 10 mg tablet (Zyrtec) 10 mg PO QAM 01/03/21 12/01/24 12/01/24 capsaicin 0.033 % topical cream 1 applic topical QID PRN pain 06/23/21 12/01/24 Unknown (Zostrix) #56.6 grams coenzyme Q10 100 mg capsule 200 mg PO QAM 08/11/22 12/01/24 12/01/24 (CoQ-10) cholecalciferol (vitamin D3) 125 5,000 unit PO DAILY 09/12/22 12/01/24 12/01/24 mcg (5,000 unit) tablet (Vitamin D3) docusate sodium 100 mg capsule 100 mg PO BID 09/12/22 12/01/24 12/01/24 08:00 (Stool Softener) melatonin 10 mg tablet 10 mg PO HS PRN Sleep 09/29/22 12/01/24 Unknown CPAP Machine #1 ea 10/21/22 11/17/24 Unknown naproxen sodium 220 mg capsule 220 mg PO DAILY PRN Pain 03/02/23 12/01/24 Unknown (Aleve) Portable Oxygen #1 ea 08/16/23 11/17/24 Unknown losartan 50 mg tablet 50 mg PO DAILY 90 days #90 tabs 11/28/23 12/01/24 12/01/24 fluticasone propionate 50 2 spray intranasal QAM #16 grams 12/05/23 12/01/24 12/01/24 mcg/actuation nasal spray,suspension alfuzosin 10 mg tablet,extended 10 mg PO DAILY #90 tabs 02/15/24 12/01/24 12/01/24 release 24 hr (Uroxatral) dutasteride 0.5 mg capsule 0.5 mg PO DAILY #90 caps 02/15/24 12/01/24 12/01/24 (Avodart) carvedilol 6.25 mg tablet 6.25 mg PO BID #180 tabs 05/07/24 12/01/24 12/01/24 08:00 pramipexole 0.25 mg tablet 0.25 mg PO QPM PRN restless legs 06/04/24 12/01/24 Unknown #30 tabs albuterol sulfate 90 mcg/actuation 2 puff inhalation Q6H PRN 06/05/24 12/01/24 Unknown aerosol inhaler shortness of breath or wheezing #1 inhaler fluticasone 250 mcg-salmeterol 50 1 inh inhalation BID #3 Inhalers 06/20/24 12/01/24 12/01/24 08:00 mcg/dose blistr powdr for inhalation (Advair Diskus) olopatadine 0.1 % eye drops 1 drp OPB DAILY PRN Eye Irritation 09/19/24 12/01/24 Unknown trazodone 50 mg tablet 100 mg PO HS 09/19/24 12/01/24 11/30/24 levothyroxine 50 mcg tablet 50 mcg PO QAM #90 tabs 10/01/24 12/01/24 12/01/24 [place] Xl Suppliment 2 tab PO DAILY 11/11/24 12/01/24 12/01/24 allopurinol 300 mg tablet 300 mg PO DAILY 11/11/24 12/01/24 12/01/24 cyanocobalamin (vitamin B-12) 1,000 mcg PO Q OTHER DAY 11/11/24 12/01/24 12/01/24 1,000 mcg tablet (Vitamin B-12) diclofenac sodium 1 % topical gel 2 g topical QID PRN Pain 11/11/24 12/01/24 Unknown diltiazem HCl 360 mg capsule,24 360 mg PO DAILY 11/11/24 12/01/24 12/01/24 hr,extended release furosemide 80 mg tablet 80 mg PO DAILY 11/11/24 12/01/24 11/30/24 potassium chloride 20 mEq 40 meq PO DAILY 11/11/24 12/01/24 12/01/24 tablet,extended release(part/cryst) rosuvastatin 5 mg tablet 5 mg PO 3XWK 11/11/24 12/01/24 11/30/24 benzonatate 200 mg capsule 200 mg PO TID PRN cough #30 caps 11/21/24 12/01/24 Unknown Active Medications Generic Name Dose Route Start Last Admin Trade Name Freq PRN Reason Stop Dose Admin Allopurinol 300 mg 12/02/24 09:00 12/03/24 08:43 Allopurinol 300 Mg Tab PO 01/01/25 08:59 300 mg DAILY ELENO Administration Carvedilol 6.25 mg 12/01/24 21:00 12/02/24 17:32 Carvedilol 6.25 Mg Tab PO 12/31/24 20:59 6.25 mg BIDM ELENO Administration Diltiazem HCl 360 mg 12/02/24 09:00 12/02/24 07:59 Diltiazem Hcl 180 Mg Capcr PO 01/01/25 08:59 360 mg DAILY ELENO Administration Docusate Sodium 100 mg 12/01/24 21:00 12/03/24 08:45 Docusate Sodium 100 Mg Cap PO 12/31/24 20:59 Not Given BID ELENO Doxepin HCl 10 mg 12/02/24 17:56 12/02/24 23:45 Doxepin Hcl 10 Mg Capsule PO 01/01/25 20:59 10 mg HS PRN Administration Insomnia Finasteride 5 mg 12/02/24 09:00 12/03/24 08:45 Finasteride 5 Mg Tab PO 01/01/25 08:59 5 mg DAILY ELENO Administration Fluticasone/Vilanterol 1 puffs 12/02/24 09:00 12/03/24 08:44 Fluticasone/Vilanterol 200/25mcg 14 Puffs/Inhaler INH 01/01/25 08:59 1 puffs DAILY ELENO Administration Furosemide 80 mg 12/02/24 12:00 12/03/24 08:44 Furosemide 80 Mg Tab PO 01/01/25 11:59 80 mg DAILY ELENO Administration Ceftriaxone Sodium 2,000 mg in 50 mls @ 100 mls/hr 12/01/24 18:31 12/02/24 18:08 Rocephin IV 12/03/24 18:30 Infused Q24H ELENO Infusion Levothyroxine Sodium 50 mcg 12/02/24 09:00 12/03/24 08:44 Levothyroxine Sodium 50 Mcg Tablet PO 01/01/25 08:59 50 mcg QAM ELENO Administration Losartan Potassium 50 mg 12/02/24 09:00 12/02/24 08:00 Losartan Potassium 50 Mg Tab PO 01/01/25 08:59 50 mg DAILY ELENO Administration Tamsulosin HCl 0.4 mg 12/02/24 09:00 12/03/24 08:44 Tamsulosin Hcl 0.4 Mg Cap PO 01/01/25 08:59 0.4 mg DAILY ELENO Administration Past Medical History Medical History B12 deficiency Venous ulcers of both lower extremities Spinal stenosis inject prn by Dr. Shobha Reid Polyneuropathy Urinary retention Peripheral edema Numbness of tongue on occasion per pt Nephrolithiasis Multiple pulmonary nodules Laryngopharyngeal reflux Internal hemorrhoids Diastolic dysfunction High blood pressure DJD (degenerative joint disease) of hip Exercise / Class Metabolic Activity III < 4 Walking/Shop/Light housework Past Family History Family History Father Hypertension Heart disease Myocardial infarction Mother Heart disease Other Allergies Hearing loss Nephrolithiasis Denies family history of Ovarian cancer Prostate cancer Diabetes Breast cancer Lung cancer Colorectal cancer Stroke Past Surgical History Surgical History Status post left foot surgery History of colonoscopy History of carpal tunnel surgery left History of ankle surgery H/O knee surgery left Past Anesthesia History No Hx of Anesthesia Complications History of PONV No Hx of PONV Social History Smoking Status: Former smoker tobacco type: cigarettes Smoking cigarettes per day: 1pk / day Do You Dip or Chew Tobacco: No Hx Alcohol Use: No alcohol intake frequency: holidays/special occasions only Hx Substance Use: No substance use type: does not use Review of Systems Constitutional: as per Subjective / HPI Eyes: as per Subjective / HPI Ear, Nose, Mouth, Throat: as per Subjective / HPI Respiratory: as per Subjective / HPI; no problem reported Cardiovascular: as per Subjective / HPI; no problem reported Gastrointestinal: as per Subjective / HPI Genitourinary (Male): + as per Subjective / HPI Musculoskeletal: as per Subjective / HPI Integumentary: as per Subjective / HPI Neurologic: as per Subjective / HPI Physical Exam Vital Signs Last Vital Signs Temp 36.7 C 12/03/24 11:44 Pulse 70 12/03/24 11:44 Resp 18 12/03/24 11:44 BP 112/60 12/03/24 11:44 Pulse Ox 95 12/03/24 11:44 O2 Del Method Nasal Cannula 12/03/24 11:44 O2 Flow Rate 3 12/03/24 11:44 Constitutional + acute distress ENMT Mouth: no TMJ abnormality Thyromental Distance: < 3.5 Finger Breadths Mallampati Class: III Neck normal visual inspection Respiratory normal respiratory effort Auscultation: lungs clear to auscultation bilaterally Cardiovascular Rate/Rhythm: regular rate and regular rhythm Musculoskeletal Spine: normal cervical ROM Neurologic moves all extremities Psychiatric Orientation: alert and oriented x 3 Testing Laboratory Results 12/03/24 06:27 12/03/24 06:27 Urine Color Dark Yellow 12/01/24 14:05 Urine Appearance Cloudy (Clear) A 12/01/24 14:05 Urine pH 7.0 (4.5-7.5) 12/01/24 14:05 Ur Specific [place] 1.020 (1.000-1.030) 12/01/24 14:05 Urine Protein 2+ (Negative) H 12/01/24 14:05 Urine Glucose (UA) Negative (Negative) 12/01/24 14:05 Urine Ketones Negative (Negative) 12/01/24 14:05 Urine Nitrite Negative (Negative) 12/01/24 14:05 Ur Leukocyte Esterase 1+ (Negative) H 12/01/24 14:05 Urine WBC (Auto) 11-20 /hpf (0-5) H 12/01/24 14:05 Urine RBC (Auto) >20 /hpf (0-2) H 12/01/24 14:05 U Hyaline Cast (Auto) 0-2 /lpf (0-2) 12/01/24 14:05 U Epithel Cells (Auto) 0-2 /hpf (0-2) 12/01/24 14:05 Urine Bacteria (Auto) None Seen (None Seen) 12/01/24 14:05 12/01/24 14:05 Urine Culture - Final Urine,Clean Catch No growth - less than 1,000 colonies/mL. 12/01/24 15:10 Aerobic Blood Culture - Preliminary Blood No growth in Aerobic bottle after 24 hours. Anaerobic Blood Culture - Preliminary No growth in Anaerobic bottle after 24 hours. 12/01/24 14:53 Aerobic Blood Culture - Preliminary Blood No growth in Aerobic bottle after 24 hours. Anaerobic Blood Culture - Preliminary No growth in Anaerobic bottle after 24 hours.
[2024-12-03] MEDS ORDERED: ROCURONIUM BROMIDE 10 MG/ML 5 ML VIAL IV ONE (14:09)
[2024-12-03] MEDS ORDERED: LIDOCAINE 2% 2 ML VIAL/AMP(20MG/ML) INFIL ONE (14:35)
[2024-12-03] MEDS ORDERED: PROPOFOL IV EMULSION 10 MG/ML 20 ML VIAL IV ONE (14:36)
[2024-12-03] MEDS ORDERED: SUGAMMADEX SODIUM 200 MG/2 ML VIAL IV ONE (14:36)
[2024-12-03] MEDS ORDERED: DEXAMETHASONE SOD INJ 4 MG/ML VIAL ONE (14:36)
[2024-12-03] MEDS ORDERED: ONDANSETRON INJ 2 MG/ML 2 ML VIAL ONE (14:36)
--- NOTE | 2024-12-03 15:28 | Operative Report ---
PG Post Operative Report Pre & Post Diagnosis Operation Date: 12/03/24 07:00 Pre-Op Diagnosis: Hematuria Post-Op Diagnosis: Hematuria I identified the patient and participated in the time-out.: Yes Procedure Operation Date: 12/03/24 07:00 Actual Procedures p Cystoscopy, Clot Evacuation with Fulguration(Not Applicable) - Kem Tabor DO Surgeon Kem Tabor, II, DO Order Processing Specialist None Estimated Blood Loss 5 Findings Consistent with Post-Op Diagnosis Massive prostate with large varicosities numerous areas of ulceration and bleeding. Severe obstruction with extremely high bladder neck. Significant reduced mobility secondary to large prostate. Difficult to assess major portions of the bladder due to large size. Specimens None Drains [place] tip Anesthesia Type MAC Complications none Disposition Disposition: Recovery Room Indications Patient with hematuria. Risks and benefits discussed at length. Description of Procedure Patient was consented and brought back to the operating room. Patient was placed under anesthesia in the supine position and moved to the dorsal lithotomy posit ion. Patient was prepped and draped in the regular sterile fashion. A time out was completed. A 30degree Cystoscope was placed into the bladder and the entire bladder was examined. The patient had an extremely large prostate with very large lateral lobes causing severe obstruction. Very large varicosities were noted with multiple areas of bleeding. Due to the very large prostate mobility and ability to access portions of the bladder were extremely limited. The majority of bladder was able to be inspected however due to significant issues with both his habitus and the extremely large prostate there was some limitations in the visibility. There was no obvious other tumors lesions or other areas concern within the bladder. Majority of issues appear to be coming from the bleeding varicosities along the bladder neck and within the prostatic urethra and the extremely large prostate. No signs of trauma or injury. The UO's were identified as well as the bladder neck, trigone, dome, and the other important landmarks. This was used to fulgurate the very large varicosities and the bleeding ulceration along the bladder neck and prostate. The resection scope with the fine bipolar loop was selected. All bleeding was controlled. The bladder was inspected a final time. The bladder was emptied. A wire was placed. The scope was removed. Over the wire a 22 [place] tip catheter was placed. This was sent to drainage. This the patient was cleaned, aroused from anesthesia, and transferred to the pacu in stable condition having tolerated the procedure well with no complications. I was present and participated in all aspects of the procedure. The patient will be monitored in the PACU until transferred. Plan to maintain catheter for approximately 2 to 4 weeks. Will have patient return for follow-up to discuss different options with primary team. Extremely large prostate with severe obstruction and large varicosities. I attest to the content of the Intraoperative Record and any orders documented therein. Any exceptions are noted below.
--- NOTE | 2024-12-03 16:06 | Hospitalist Progress Note ---
"Date of Service December 03, 2024 Assessment & Plan (1) Malfunction of Baker catheter: (2) Acute urinary retention: (3) BPH (benign prostatic hyperplasia): Plan Pt is a 79 yo male with PMH of BPH, COPD, HTN, hx of CVA, HLD, hypothyroidism, AAA, gout, and ADILSON who presented to ED for 3rd visit in 4 days for urinary retention due to obstruction in baker catheter. Pt was admitted for observation and urology consult with anticipation of possible cystoscopy. #Urinary Retention|BPH -Urology consulted, planned OR today with cystoscopy and possible clot evacuation -Continue dutasteride,Uroxatral -Urine culture pending -Ceftriaxone 2g q24h empirically, urine culture with no growth, cont post procedure for prophylaxis #Hypertension (held BP medications this am due to soft measurement and slated OR procedure in anticipation of anesthesia) -Continue Losartan -Continue Diltiazem -Continue Carvedilol #Thoracic aortic aneurysm/AAA CT scan shows TAA measuring 5.1 cm and AAA measuring 4.4 cm -Continue Carvedilol and Crestor -monitoring with cardiology -No abdominal pain or discomfort #Hyperlipidemia -Crestor 5mg po 3x weekly #Hypothyroidism -Synthroid 50mcg po qAM #ADILSON|chronic hypoxic respiratory failure|former smoker|restrictive lung disesase -CPAP qHS with oxygen -O2 via NC 2-3LPM, titrate for O2 sats 90-92% Dispo: Med/surg, home when medically stable DVT proph - Hold in anticipation of procedure, ASA on hold Diet: NPO for procedure, advance accordingly Code: Full Admission and Anticipated Discharge Date Admission Date: December 01, 2024 Subjective Patient seen and examined at bedside this morning. Lying in his side in bed with nasal cannula present. States he wears nasal cannula at home continuously and sees pulmonology. Would like to go home this evening after his procedure with urology. Baker patent and draining large amounts of concentrated, yellow urine. Review of Systems Review of Systems: All systems reviewed & are unremarkable except as noted in Subjective Physical Exam Physical Exam: GENERAL APPEARANCE: A&O. Lying on side in bed. NAD. SKIN: Normal color without rashes or lesions. Normal turgor. HEENT: Head AT/NC. Buccal mucosa is moist and pink. NECK: No jugular venous distention. No thyroid enlargement. There is no lymphadenopathy. HEART: RRR without m/g/r. LUNGS: Normal inspiratory effort. CTA without w/r/r. ABDOMEN: Obese. No guarding or rigidity. Normoactive BS in all four quadrants. Abdomen soft and NT. MSK: No bony gross/deformities throughout. ROM intact. EXTREMITIES: No edema, No peripheral cyanosis. Results & Data Results & Data Vital Signs (Past 12 Hours) Vital Signs Temp Pulse Pulse Resp BP BP Pulse Ox 12/03/24 15:35 79 18 122/66 95 12/03/24 15:25 89 19 130/59 L 95 12/03/24 15:16 36.7 C 83 19 136/56 L 95 12/03/24 11:44 36.7 C 70 18 112/60 95 12/03/24 08:07 67 105/57 L 12/03/24 07:50 36.2 C L 68 18 135/85 98 12/03/24 07:41 O2 Del Method O2 Flow Rate 12/03/24 15:35 Nasal Cannula 3 12/03/24 15:25 Nasal Cannula 3 12/03/24 15:16 Nasal Cannula 3 12/03/24 11:44 Nasal Cannula 3 12/03/24 08:07 12/03/24 07:50 Nasal Cannula 3 12/03/24 07:41 Nasal Cannula 3 PG Care Time/CCT Total # of Minutes Spent Total Time Spent with Patient: Total time spent is greater than 50% in coordination of care (as documented) at patient's floor/unit and/or counseling patient: Coding Level of Care Code 06447 SUB INP/OBS CARE 3/50MIN Diagnoses Malfunction of Baker catheter T83.011A Acute urinary retention R33.8 BPH (benign prostatic hyperplasia) N40.0"
[2024-12-03 16:28] VITALS: RESP 18
[2024-12-03] MEDS: ROCURONIUM BROMIDE 10 MG/ML 5 ML VIAL IV ONE (16:32)
[2024-12-03] MEDS: POTASSIUM CHLORIDE CRTAB 20 MEQ TABCR PO SCH (16:36)
[2024-12-03 17:03] VITALS: BP 137/67; PULSE 92; TEMP 98.8; O2SAT 94
--- NOTE | 2024-12-03 17:04 | Discharge Summary ---
Discharge Summary Date of Service December 03, 2024 Principal Dx & Hospital Course #1 = Principal Diagnosis (1) Malfunction of Baker catheter: (2) Acute urinary retention: (3) BPH (benign prostatic hyperplasia): Plan Pt is a 79 yo male with PMH of BPH, COPD, HTN, hx of CVA, HLD, hypothyroidism, AAA, gout, and ADILSON who presented to ED for 3rd visit in 4 days for urinary retention due to obstruction in baker catheter. Pt was admitted for observation and urology consult with anticipation of possible cystoscopy. #Urinary Retention|BPH -Urology consulted, planned OR today with cystoscopy and possible clot evacuation -Continue dutasteride,Uroxatral -Urine culture pending -Ceftriaxone 2g q24h empirically, urine culture with no growth, cont post procedure for prophylaxis #Hypertension (held BP medications this am due to soft measurement and slated OR procedure in anticipation of anesthesia) -Continue Losartan -Continue Diltiazem -Continue Carvedilol #Thoracic aortic aneurysm/AAA CT scan shows TAA measuring 5.1 cm and AAA measuring 4.4 cm -Continue Carvedilol and Crestor -monitoring with cardiology -No abdominal pain or discomfort #Hyperlipidemia -Crestor 5mg po 3x weekly #Hypothyroidism -Synthroid 50mcg po qAM #ADILSON|chronic hypoxic respiratory failure|former smoker|restrictive lung disesase -CPAP qHS with oxygen -O2 via NC 2-3LPM, titrate for O2 sats 90-92% Dispo: Med/surg, home when medically stable DVT proph - Hold in anticipation of procedure, ASA on hold Diet: NPO for procedure, advance accordingly Code: Full Admission HPI Per Admitting Provider 79 y/o male presents to the ED with recurrent catheter issues. He was seen initially in the ED on 11/29/2024 with difficulty urinating. Bladder scan in the ER was greater than 990, and Baker catheter was placed by nursing which drained greater than 1200 mL over 2-1/2 hours. He was discharged from the ED with a Baker and outpatient urology follow up. However, he returned to the ED on 11/30/2024 when he noted decreased urine in the bag. Bladder scan was again performed which showed greater than 1 L of urine in the patient's bladder. Baker catheter was exchanged by nursing and 1200 cc of urine removed. Patient stated that he felt better after having Baker catheter exchange and he was appropriately discharged with scheduled urology follow up. Unfortunately he had similar issues overnight and returns to the ED today. Patient was admitted to this facility mid October with COVID. Still with some dyspnea and is using oxygen 3 lpm (baseline). PFTs from 03/2023 demonstrate moderate restrictive lung disease. (+) tobacco history. Follows with pulmonology; known pulmonary nodules with planned follow up. Discharge Plan Discharge Items Patient Disposition: Home - Self-Care Reason For Visit: URINARY RETENTION Discharge Diagnosis: Hematuria, bladder outlet obstruction, catheter malfunction, severely enlarged prostate Condition on Discharge: Fair Activity: Resume your previous activity Non-emergency contact: Primary Care Provider and Urologist Call non-emergency contact if: you have any medication questions, your symptoms worsen and you have a fever Follow-up/Referrals: Kem Tabor DO [Physician] - Broderick Chávez DO [Primary Care Provider] - Diet: Regular Addtl Attending Provider Instructions: You underwent cystoscopy procedure to clear out your bladder and prevent ongoing bleeding Continue baker catheter 2-4 weeks. Follow up with Urologist - office should be contacting you to schedule. Dr. Tabor recommended a week of antibiotic - cephalexin You can take a probiotic for 2-4 weeks to prevent antibiotic associated diarrhea. These are available over the counter. If you have rash or severe diarrhea after/while taking antibiotics, call your doctor. Diarrhea associated with broad spectrum antibiotics can occur up to six months following antibiotics. If you have significant ongoing diarrhea, especially with abdominal pain or fever, seek medical attention. It was a pleasure taking care of you in the hospital, Araceli Kong MD Pending Studies at Discharge: Yes (blood cultures no growth to date) [facility] Cess[facility] Medications and DC Order Prescriptions: New cefadroxil 1 gram tablet 1,000 mg PO BID Qty: 14 0RF Continued (DME) CPAP Supplies Misc See Rx Instructions .MEDSUPPLY Qty: 1 0RF Rx Instructions: CPAP supplies. G47.33 (DME) CPAP Machine Misc See Rx Instructions .ROUTE .MEDSUPPLY Qty: 1 0RF Rx Instructions: NEW CPAP @10CM. CPAP SUPPLIES, mask of pts choice, filters, tubing, heated humidification,water chamber and compliance download capabilities LON99 . JOHN 99.CARE PLUS O2 (DME) Portable Oxygen Misc See Rx Instructions .MEDSUPPLY Qty: 1 0RF Rx Instructions: Oxygen 1 liters continuous via nasal cannula on exertion with portable concentrator. JOHN 99 losartan 50 mg tablet 50 mg PO DAILY 90 Days Qty: 90 3RF fluticasone propionate 50 mcg/actuation spray,suspension 2 spray INTNAS QAM Qty: 16 2RF Rx Instructions: administer into each nostril carvedilol 6.25 mg tablet 6.25 mg PO BID Qty: 180 3RF Rx Instructions: must administer with a meal/food pramipexole 0.25 mg tablet 0.25 mg PO QPM PRN (Reason: restless legs) Qty: 30 2RF Rx Instructions: administer 2 - 3 hours before bedtime albuterol sulfate 90 mcg/actuation HFA aerosol inhaler 2 puff inhalation Q6H PRN (Reason: shortness of breath or wheezing) Qty: 1 2RF levothyroxine 50 mcg tablet 50 mcg PO QAM Qty: 90 3RF benzonatate 200 mg capsule 200 mg PO TID PRN (Reason: cough) Qty: 30 0RF Zostrix 0.033 % cream 1 applic topical QID PRN (Reason: pain) Qty: 56.6 0RF Rx Instructions: do not wash area for at least 30 min after application melatonin 10 mg tablet 10 mg PO HS PRN (Reason: Sleep) dutasteride [Avodart] 0.5 mg capsule 0.5 mg PO DAILY Qty: 90 3RF alfuzosin [Uroxatral] 10 mg tablet extended release 24 hr 10 mg PO DAILY Qty: 90 3RF Rx Instructions: After the same meal each day fluticasone propion-salmeterol [Advair Diskus] 250-50 mcg/dose blister with device 1 inh inhalation BID Qty: 3 3RF olopatadine 0.1 % drops 1 drp OPB DAILY PRN (Reason: Eye Irritation) Dose Instruction: PLACE 1 DROP INTO EACH EYE ONCE DAILY NEEDED FOR EYE IRRITATION trazodone 50 mg tablet 100 mg PO HS aspirin [Agapito Low Dose Aspirin] 81 mg Tablet,Delayed Release (Dr/Ec) 81 mg PO HS Centrum Silver 0.4-300-250 mg-mcg-mcg Tablet 1 tab PO QAM Vision Formula (with lutein) 1,000 unit-200 mg-60 unit-2 mg Tablet 1 tab PO DAILY omega 3-wgg-joo-fish oil [Fish Oil] 1,000 mg (120 mg-180 mg) Capsule 1,000 mg PO QAM coenzyme Q10 [CoQ-10] 100 mg capsule 200 mg PO QAM naproxen sodium [Aleve] 220 mg capsule 220 mg PO DAILY PRN (Reason: Pain) cetirizine [Zyrtec] 10 mg Tablet 10 mg PO QAM docusate sodium [Stool Softener] 100 mg Capsule 100 mg PO BID cholecalciferol (vitamin D3) [Vitamin D3] 125 mcg (5,000 unit) Tablet 5,000 unit PO DAILY cyanocobalamin (vitamin B-12) [Vitamin B-12] 1,000 mcg Tablet 1,000 mcg PO Q OTHER DAY [place] Xl Suppliment 2 tab PO DAILY diltiazem HCl 360 mg capsule,extended release 24hr 360 mg PO DAILY potassium chloride 20 mEq tablet,ER particles/crystals 40 meq PO DAILY furosemide 80 mg tablet 80 mg PO DAILY Rx Instructions: PER PT'S DAUGHTER, "DID NOT GIVE D/T CATHETER NOT WORKING".12/01/24 allopurinol 300 mg tablet 300 mg PO DAILY rosuvastatin 5 mg tablet 5 mg PO 3XWK Rx Instructions: TAKES MON, WED, & FRI. diclofenac sodium 1 % gel 2 g topical QID PRN (Reason: Pain) Discharge Orders: Discharge Order (Routine); Ordered 12/03/24 Ordered By: Araceli Raygoza/Other Patient Handouts: Cefadroxil Oral Tablet, ED Baker Catheter, Care Admission Data Admit Date/Time: 12/01/24 17:04 Attending Provider: Araceli Kong Admit Provider: Serena Simth Primary Care Provider: Broderick Chávez Other Providers: [facility]; Kem Tabor; Salas Ordaz Hospital Stay Data Consultations 12/01/24 15:40 Consult Urology Stat ED Decision to Admit Stat Procedures Performed Operation Date: 12/03/24 07:00 Actual Procedures p Cystoscopy, Clot Evacuation with Fulguration(Not Applicable) - Kem Tabor DO Diagnostic Imagining Performed 12/01/24 15:37 CT abd pelvis wo con Stat Pending Results Patient Have Any Pending Studies at Discharge: Yes (blood cultures no growth to date) Discharge Instructions Given to Patient (Per Discharging Provider) You underwent cystoscopy procedure to clear out your bladder and prevent ongoing bleeding Continue baker catheter 2-4 weeks. Follow up with Urologist - office should be contacting you to schedule. Dr. Tabor recommended a week of antibiotic - cephalexin You can take a probiotic for 2-4 weeks to prevent antibiotic associated diarrhea. These are available over the counter. If you have rash or severe diarrhea after/while taking antibiotics, call your doctor. Diarrhea associated with broad spectrum antibiotics can occur up to six months following antibiotics. If you have significant ongoing diarrhea, especially with abdominal pain or fever, seek medical attention. It was a pleasure taking care of you in the hospital, Araceli Kong MD Coding Diagnoses Malfunction of Baker catheter T83.011A Acute urinary retention R33.8 BPH (benign prostatic hyperplasia) N40.0
--- NOTE | 2024-12-04 15:26 | Discharge Summary ---
Discharge Summary Date of Service December 04, 2024 Principal Dx & Hospital Course #1 = Principal Diagnosis (1) Malfunction of Baker catheter: (2) Acute urinary retention: (3) BPH (benign prostatic hyperplasia): Plan Pt is a 79 yo male with PMH of BPH, COPD, HTN, hx of CVA, HLD, hypothyroidism, AAA, gout, and ADILSON who presented to ED for 3rd visit in 4 days for urinary retention due to obstruction in baker catheter. Pt was admitted for observation and urology consult with anticipation of possible cystoscopy. He received empiric ceftriaxone with final UC revealing no growth. He underwent cystoscopy with clot evacuation and fulguration with catheter placement. He will be following up with urology with catheter being maintained for 2-4 weeks. #Urinary Retention|BPH -urology consulted with subsequent cystoscopy, clot evacuation with fulguration -Urine culture with no growth-less than 1,000 colonies -d/c home with catheter and f/u with urology in 2-4 weeks -Continue dutasteride, Uroxatral at home -d/c on cefadroxil #Hypertension -resume Losartan, diltiazem, carvedilol at home #Thoracic aortic aneurysm/AAA CT scan shows TAA measuring 5.1 cm and AAA measuring 4.4 cm -Continue Carvedilol and Crestor at home -monitoring surveillance with cardiology #Hyperlipidemia -Crestor 5mg po 3x weekly #Hypothyroidism -Synthroid 50mcg po qAM #ADILSON|chronic hypoxic respiratory failure|former smoker|restrictive lung disesase -CPAP qHS with oxygen -O2 via NC 2-3LPM, titrate for O2 sats 90-92% Dispo: Med/surg, d/c home DVT proph - can resume ASA on d/c Diet: Heart healthy at home Code: Full Admission HPI Per Admitting Provider 79 y/o male presents to the ED with recurrent catheter issues. He was seen initially in the ED on 11/29/2024 with difficulty urinating. Bladder scan in the ER was greater than 990, and Baker catheter was placed by nursing which drained greater than 1200 mL over 2-1/2 hours. He was discharged from the ED with a Fo nancy and outpatient urology follow up. However, he returned to the ED on 11/30/2024 when he noted decreased urine in the bag. Bladder scan was again performed which showed greater than 1 L of urine in the patient's bladder. Baker catheter was exchanged by nursing and 1200 cc of urine removed. Patient stated that he felt better after having Baker catheter exchange and he was appropriately discharged with scheduled urology follow up. Unfortunately he had similar issues overnight and returns to the ED today. Patient was admitted to this facility mid October with COVID. Still with some dyspnea and is using oxygen 3 lpm (baseline). PFTs from 03/2023 demonstrate moderate restrictive lung disease. (+) tobacco history. Follows with pulmonology; known pulmonary nodules with planned follow up. Discharge Exam GENERAL APPEARANCE: A&O. Lying on side in bed. NAD. SKIN: Normal color without rashes or lesions. Normal turgor. HEENT: Head AT/NC. Buccal mucosa is moist and pink. NECK: No jugular venous distention. No thyroid enlargement. There is no lymphadenopathy. HEART: RRR without m/g/r. LUNGS: Normal inspiratory effort. CTA without w/r/r. ABDOMEN: Obese. No guarding or rigidity. Normoactive BS in all four quadrants. Abdomen soft and NT. MSK: No bony gross/deformities throughout. ROM intact. EXTREMITIES: No edema, No peripheral cyanosis. Discharge Plan Discharge Items Patient Disposition: Home - Self-Care Reason For Visit: URINARY RETENTION Discharge Diagnosis: Hematuria, bladder outlet obstruction, catheter malfunction, severely enlarged prostate Condition on Discharge: Fair Activity: Resume your previous activity Non-emergency contact: Primary Care Provider and Urologist Call non-emergency contact if: you have any medication questions, your symptoms worsen and you have a fever Follow-up/Referrals: Kem Tabor DO [Physician] - Broderick Chávez DO [Primary Care Provider] - Diet: Regular Addtl Attending Provider Instructions: You underwent cystoscopy procedure to clear out your bladder and prevent ongoing bleeding Continue baker catheter 2-4 weeks. Follow up with Urologist - office should be contacting you to schedule. Dr. Tabor recommended a week of antibiotic - cephalexin You can take a probiotic for 2-4 weeks to prevent antibiotic associated diarrhea. These are available over the counter. If you have rash or severe diarrhea after/while taking antibiotics, call your doctor. Diarrhea associated with broad spectrum antibiotics can occur up to six months following antibiotics. If you have significant ongoing diarrhea, especially with abdominal pain or fever, seek medical attention. It was a pleasure taking care of you in the hospital, Araceli Kong MD Pending Studies at Discharge: Yes (blood cultures no growth to date) Stand-Alone Forms: My [facility], Smoking Cessation Medications and DC Order Prescriptions: New cefadroxil 1 gram tablet 1,000 mg PO BID Qty: 14 0RF Continued (DME) CPAP Supplies Misc See Rx Instructions .MEDSUPPLY Qty: 1 0RF Rx Instructions: CPAP supplies. G47.33 (DME) CPAP Machine Misc See Rx Instructions .ROUTE .MEDSUPPLY Qty: 1 0RF Rx Instructions: NEW CPAP @10CM. CPAP SUPPLIES, mask of pts choice, filters, tubing, heated humidification,water chamber and compliance download capabilities LON99 . JOHN 99.CARE PLUS O2 (DME) Portable Oxygen Misc See Rx Instructions .MEDSUPPLY Qty: 1 0RF Rx Instructions: Oxygen 1 liters continuous via nasal cannula on exertion with portable concentrator. JOHN 99 losartan 50 mg tablet 50 mg PO DAILY 90 Days Qty: 90 3RF fluticasone propionate 50 mcg/actuation spray,suspension 2 spray INTNAS QAM Qty: 16 2RF Rx Instructions: administer into each nostril carvedilol 6.25 mg tablet 6.25 mg PO BID Qty: 180 3RF Rx Instructions: must administer with a meal/food pramipexole 0.25 mg tablet 0.25 mg PO QPM PRN (Reason: restless legs) Qty: 30 2RF Rx Instructions: administer 2 - 3 hours before bedtime albuterol sulfate 90 mcg/actuation HFA aerosol inhaler 2 puff inhalation Q6H PRN (Reason: shortness of breath or wheezing) Qty: 1 2RF levothyroxine 50 mcg tablet 50 mcg PO QAM Qty: 90 3RF benzonatate 200 mg capsule 200 mg PO TID PRN (Reason: cough) Qty: 30 0RF Zostrix 0.033 % cream 1 applic topical QID PRN (Reason: pain) Qty: 56.6 0RF Rx Instructions: do not wash area for at least 30 min after application melatonin 10 mg tablet 10 mg PO HS PRN (Reason: Sleep) dutasteride [Avodart] 0.5 mg capsule 0.5 mg PO DAILY Qty: 90 3RF alfuzosin [Uroxatral] 10 mg tablet extended release 24 hr 10 mg PO DAILY Qty: 90 3RF Rx Instructions: After the same meal each day fluticasone propion-salmeterol [Advair Diskus] 250-50 mcg/dose blister with device 1 inh inhalation BID Qty: 3 3RF olopatadine 0.1 % drops 1 drp OPB DAILY PRN (Reason: Eye Irritation) Dose Instruction: PLACE 1 DROP INTO EACH EYE ONCE DAILY NEEDED FOR EYE IRRITATION trazodone 50 mg tablet 100 mg PO HS aspirin [Agapito Low Dose Aspirin] 81 mg Tablet,Delayed Release (Dr/Ec) 81 mg PO HS Centrum Silver 0.4-300-250 mg-mcg-mcg Tablet 1 tab PO QAM Vision Formula (with lutein) 1,000 unit-200 mg-60 unit-2 mg Tablet 1 tab PO DAILY omega 2-kty-hpy-fish oil [Fish Oil] 1,000 mg (120 mg-180 mg) Capsule 1,000 mg PO QAM coenzyme Q10 [CoQ-10] 100 mg capsule 200 mg PO QAM naproxen sodium [Aleve] 220 mg capsule 220 mg PO DAILY PRN (Reason: Pain) cetirizine [Zyrtec] 10 mg Tablet 10 mg PO QAM docusate sodium [Stool Softener] 100 mg Capsule 100 mg PO BID cholecalciferol (vitamin D3) [Vitamin D3] 125 mcg (5,000 unit) Tablet 5,000 unit PO DAILY cyanocobalamin (vitamin B-12) [Vitamin B-12] 1,000 mcg Tablet 1,000 mcg PO Q OTHER DAY [place] Xl Suppliment 2 tab PO DAILY diltiazem HCl 360 mg capsule,extended release 24hr 360 mg PO DAILY potassium chloride 20 mEq tablet,ER particles/crystals 40 meq PO DAILY furosemide 80 mg tablet 80 mg PO DAILY Rx Instructions: PER PT'S DAUGHTER, "DID NOT GIVE D/T CATHETER NOT WORKING".12/01/24 allopurinol 300 mg tablet 300 mg PO DAILY rosuvastatin 5 mg tablet 5 mg PO 3XWK Rx Instructions: TAKES MON, WED, & FRI. diclofenac sodium 1 % gel 2 g topical QID PRN (Reason: Pain) Discharge Orders: Discharge Order (Routine); Ordered 12/03/24 Ordered By: Araceli Raygoza/Other Patient Handouts: Cefadroxil Oral Tablet, Cystoscopy, ED Baker Catheter, Care Admission Data Admit Date/Time: 12/01/24 17:04 Attending Provider: Araceli Kong Admit Provider: Serena Smith Primary Care Provider: Broderick Chávez Other Providers: [facility]; Kem Tabor; Salas Ordaz Other Interventions: Discharge Summary Assessment (RN) Last Done: 12/03/24 17:12 Hospital Stay Data Consultations 12/01/24 15:40 Consult Urology Stat ED Decision to Admit Stat Procedures Performed Operation Date: 12/03/24 07:00 Actual Procedures p Cystoscopy, Clot Evacuation with Fulguration(Not Applicable) - Kem Tabor, DO Diagnostic Imagining Performed 12/01/24 15:37 CT abd pelvis wo con Stat Pending Results Patient Have Any Pending Studies at Discharge: Yes (blood cultures no growth to date) Discharge Instructions Given to Patient (Per Discharging Provider) You underwent cystoscopy procedure to clear out your bladder and prevent ongoing bleeding Continue baker catheter 2-4 weeks. Follow up with Urologist - office should be contacting you to schedule. Dr. Tabor recommended a week of antibiotic - cephalexin You can take a probiotic for 2-4 weeks to prevent antibiotic associated diarrhea. These are available over the counter. If you have rash or severe diarrhea after/while taking antibiotics, call your doctor. Diarrhea associated with broad spectrum antibiotics can occur up to six months following antibiotics. If you have significant ongoing diarrhea, especially with abdominal pain or fever, seek medical attention. It was a pleasure taking care of you in the hospital, Araceli Kong MD Total Time Total Time Spent Total Time Spent (In Minutes): 45 minutes total Coding Level of Care Code 07262 INP/OBS DISCH >30 MIN Diagnoses Malfunction of Baker catheter T83.011A Acute urinary retention R33.8 BPH (benign prostatic hyperplasia) N40.0
== END 2024-12-03 18:02 | disposition home or self-care (01) ==
LOC: ED 13:09 → 3W 13:09 → SUATTDRO 17:04 → 3W 18:13